=== PATIENT | female | born 1975 | race African-American/Black ===

== ENCOUNTER 2017-08-15 08:00 | Outpatient (CLI) | payer OTHER ==
[2017-08-15 08:25] LABS: ADD MAN DIFF? NO
[2017-08-15 08:27] LABS: BASO # 0.1 x10^3/uL (0.0-0.2); BASO % 1 % (0-3); EOS # 0.2 x10^3/uL (0.0-0.7); EOS % 3 % (0-3); HEMATOCRIT 32.9 % (36.0-47.0); HEMOGLOBIN 10.9 g/dL (12.0-15.5); LYMPH % 31 % (24-48); MEAN CORPUSCULAR HEMOGLOBIN 31 pg (25-35); MEAN CORPUSCULAR HGB CONC 33 g/dL (31-37); MEAN CORPUSCULAR VOLUME 94 fL (79-100); MONO # 0.7 x10^3/uL (0.0-1.1); MONO % 10 % (0-9); NEUT # 3.6 x10^3uL (1.8-7.7); NEUT % 55 % (31-73); PLATELET COUNT 338 x10^3/uL (140-400); WHITE BLOOD COUNT 6.5 x10^3/uL (4.0-11.0)
[2017-08-15 08:43] LABS: INR 0.9 (0.8-1.1); PROTHROMBIN TIME PATIENT 12.1 SEC (11.7-14.0)
[2017-08-15] MEDS ORDERED: GELATIN SPONGE SIZE 12-7MM SPONGE. (09:24)
[2017-08-15] MEDS ORDERED: LIDOCAINE WITH 8.4% SOD BICARB 3 ML DISP.SYRIN. (09:44)
[2017-08-15] MEDS ORDERED: fentaNYL PF VIAL 100 MCG/2 ML VIAL (09:45)
[2017-08-15] MEDS: LIDOCAINE WITH 8.4% SOD BICARB 3 ML DISP.SYRIN. IJ (09:51)
[2017-08-15] MEDS: fentaNYL PF VIAL 100 MCG/2 ML VIAL IV (09:52)
[2017-08-15] MEDS: MIDAZOLAM HCL/PF 2 MG/2 ML VIAL. IV (09:53)
[2017-08-15] MEDS: traMADol 50 MG TABLET PO (10:00)
[2017-08-15] MEDS: oxyCODONE IR 5 MG TABLET PO (10:00)
[2017-08-15] MEDS ORDERED: MORPHINE SULFATE 4 MG/ML DISP.SYRIN. (11:49)
[2017-08-15] MEDS: MORPHINE SULFATE 2 MG/ML DISP.SYRIN. IV (11:56)
[2017-08-15 12:41] LABS: HEMOGLOBIN 10.8 g/dL (12.0-15.5)
[2017-08-16] MEDS ORDERED: MIDAZOLAM HCL/PF 2 MG/2 ML VIAL. (11:33)
[2017-08-16] MEDS ORDERED: fentaNYL PF VIAL 100 MCG/2 ML VIAL (11:34)
== END 2017-08-15 12:55 | disposition home or self-care (01) ==
LOC: INTRAD 08:00
DX: K74.3 Primary biliary cirrhosis (principal); Z87.01 Personal history of pneumonia (recurrent); Z90.79 Acquired absence of other genital organ(s); Z90.721 Acquired absence of ovaries, unilateral; F41.9 Anxiety disorder, unspecified; F32.9 Major depressive disorder, single episode, unspecified; D64.9 Anemia, unspecified; Z98.890 Other specified postprocedural states
CPT/HCPCS: 36415; 47000; 76942; 85018; 85025; 85610; J2250; J2270; J3010

== ENCOUNTER → 2019-09-10 | Outpatient (CLI) | payer OTHER ==
[~2019-09-10] MED LIST: AMLO10TA8 PO; AZAT50TA PO; BENZ-8 PO; COLE1TAB2 PO; CYCL10TA2 PO; DICL100G54 TP; DIPH50CA PO; ESCITALOPRAM OX10 MG PO; FURO20TA3 PO; HYDR12.58 PO; HYDR25TA PO; LACT10PA3 PO; LEVO50TA5 PO; MYCO250C PO; OLAN15TA9 PO; OMEP20CA16 PO; OXYC10TA PO; PRED5TAB PO; PROM25TA10 PO; SERT100T PO; SUCR1TAB PO; TRAM50TA PO; URSO300C13 PO; URSO300C26 PO; ZOLP10TA4 PO; ZOLP5TAB5 PO
== END | disposition home or self-care (01) ==
LOC: LAB 11:49
PROVIDERS: ATTEND Internal Medicine Gastroenterology
DX: Z01.818 Encounter for other preprocedural examination (principal); Z11.59 Encounter for screening for other viral diseases; R13.10 Dysphagia, unspecified
CPT/HCPCS: U0003-CS

== ENCOUNTER → 2019-09-13 | Day surgery (SDC) | payer OTHER ==
[~2019-09-13] MED LIST changes: +IV RINGERS,LACTATED 1000ML 1,000 ML IV ONE; +LIDOCAINE 2% PF 5 ML VIAL. ONE; +PROPOFOL 10 MG/ML (20ML) VIAL. IV ONE
[2019-09-13 13:18] VITALS: BP 125/79
--- NOTE | 2019-09-14 15:08 | PATHOLOGY ---
[facility] Accession Number: [id number] . 01 Material submitted: . duodenum - ANASTOMOTIC ULCER BX DUODENUM . 01 Clinical history: . Post Momo fundoplication dysphagia; odynophagia . 02 Diagnosis: Duodenal biopsies, anastomotic ulcer: - Chronic duodenitis with focal erosion and acute inflammation. ([facility] 09/14/2019) [facility] 09/14/2019 1014 Local . 02 Comment: There is no evidence of malignancy. ([facility] 09/14/2019) . 02 Electronically signed: . Pranay Lorenzo MD, Pathologist NPI- [id number] . 01 Gross description: . The specimen is received in formalin, labeled "Dione Nevils, anastomotic ulcer biopsy". Received are two segments of pale fairbanks soft tissue ranging in size from 0.4 to 0.7 cm in maximum dimensions. The specimen is submitted entirely in cassette A1. ([facility]; 09/13/2019) QA/QA 09/13/2019 1705 Local . 02 Pathologist provided ICD-10: K29.80, K26.9 . 02 CPT . 092126 Specimen Comment: A courtesy copy of this report has been sent to [phone] Specimen Comment: Report sent to Performed at: 01 [facility] [address], [place] [id number] MD Redd Squires MD Phone: [phone] Performed at: 02 [facility] [address] [place], [place] [id number] MD Pranay Lorenzo MD Phone: [phone]
== END | disposition home or self-care (01) ==
LOC: ENDOS 10:44
PROVIDERS: ATTEND Internal Medicine Gastroenterology
DX: R13.10 Dysphagia, unspecified (principal); K29.80 Duodenitis without bleeding; K29.50 Unspecified chronic gastritis without bleeding; Z79.899 Other long term (current) drug therapy
CPT/HCPCS: 43239; 43450; J2704; 88305

== ENCOUNTER 2020-09-29 23:45 | Inpatient (IN) | payer OTHER ==
[~2020-09-29] VITALS: Ht 152.4 cm; Wt 79.1 kg
[2020-09-29 23:20] VITALS: BP 143/97
[~2020-09-29 23:45] MED LIST changes: +AMLO-187 PO; -AMLO10TA8 PO; -IV RINGERS,LACTATED 1000ML 1,000 ML IV ONE; -LIDOCAINE 2% PF 5 ML VIAL. ONE; +OLAN15TA15 PO; -OLAN15TA9 PO; -PROPOFOL 10 MG/ML (20ML) VIAL. IV ONE
[2020-09-30] MEDS ORDERED: CIME200T6 PO (00:32)
[2020-09-30] MEDS ORDERED: PROG200C10 PO (00:32)
[2020-09-30] MEDS ORDERED: ONDA8TAB15 PO (00:32)
[2020-09-30] MEDS ORDERED: NAPR-514 PO (00:32)
[2020-09-30] MEDS ORDERED: SUCR1TAB PO (00:32)
[2020-09-30] MEDS ORDERED: ERGO500089 PO (00:32)
[2020-09-30] MEDS ORDERED: ESTR1VAG7 VAG (00:32)
[2020-09-30] MEDS ORDERED: MYCO500T3 PO (00:32)
[2020-09-30] MEDS ORDERED: FAMO40TA4 PO (00:32)
[2020-09-30] MEDS ORDERED: PROC10TA2 PO (00:32)
[2020-09-30] MEDS ORDERED: PIP/TAZO PER PHARMACY MC PRN (01:00)
[2020-09-30 02:47] VITALS: BP 147/103
[2020-09-30] MEDS: ONDANSETRON PF 4 MG/2 ML VIAL. IVP PRN (03:10)
[2020-09-30] MEDS: MORPHINE SULFATE 4 MG/ML INJ. IV PRN (03:11)
[2020-09-30] MEDS: PIPERACILLIN/TAZOBACTAM 3.375 GM in IV NORMAL SALINE 50ML 50 ML IV SCH ×4 (05:18→23:56)
[2020-09-30 07:00] VITALS: BP 133/104
[2020-09-30 08:08] LABS: BASO # 0.1 x10^3/uL (0.0-0.2); BASO % 1 % (0-3); EOS % 0 % (0-3); HEMATOCRIT 38.6 % (36.0-47.0); HEMOGLOBIN 12.5 g/dL (12.0-15.5); LYMPH # 0.9 x10^3/uL (1.0-4.8); LYMPH % 13 % (24-48); MEAN CORPUSCULAR HEMOGLOBIN 30 pg (25-35); MEAN CORPUSCULAR HGB CONC 32 g/dL (31-37); MEAN CORPUSCULAR VOLUME 93 fL (79-100); MONO # 0.5 x10^3/uL (0.0-1.1); MONO % 8 % (0-9); NEUT # 5.2 x10^3/uL (1.8-7.7); NEUT % 79 % (31-73); PLATELET COUNT 230 x10^3/uL (140-400); RED BLOOD COUNT 4.16 x10^6/uL (3.50-5.40); WHITE BLOOD COUNT 6.6 x10^3/uL (4.0-11.0)
[2020-09-30 08:40] LABS: ALBUMIN 2.6 g/dL (3.4-5.0); ALBUMIN/GLOBULIN RATIO 0.4 (1.0-1.7); CALCIUM 9.2 mg/dL (8.5-10.1); GFR 72.9; POTASSIUM 4.7 mmol/L (3.5-5.1); TOTAL BILIRUBIN 0.3 mg/dL (0.2-1.0); TOTAL PROTEIN 8.7 g/dL (6.4-8.2)
[2020-09-30] MEDS: MULTIVITAMIN with MINERAL TABLET. PO SCH (09:19)
[2020-09-30] MEDS: DEXAMETHASONE 4 MG TABLET PO SCH ×2 (09:19→20:17)
[2020-09-30] MEDS: DOXYCYCLINE HYCLATE 100 MG in IV DEXTROSE 5% 100ML 100 ML IV SCH ×2 (09:20→21:52)
[2020-09-30] MEDS: ASPIRIN ENTERIC COATED 81 MG TABLET.DR. PO SCH (09:20)
[2020-09-30 09:28] LABS: % BANDS 8 % (0-9); % LYMPHS 13 % (24-48); % MONOS 6 % (0-10); % SEGS 73 % (35-66)
[2020-09-30 09:29] LABS: PLT ESTIMATE ADEQUATE (ADEQUATE)
--- NOTE | 2020-09-30 09:45 | CONS ---
DATE OF CONSULTATION: 09/30/2020 PULMONARY CONSULTATION ATTENDING PHYSICIAN: Dedrick Marquez MD REASON FOR CONSULTATION: COVID-19 pneumonia, hypoxia, respiratory failure. HISTORY OF PRESENT ILLNESS: The patient is a 45-year-old female who has no significant tobacco use. She is hospitalized due to dyspnea, cough and hypoxia. The patient is COVID positive. She is currently on 10 liters oxygen. She is not vaccinated for COVID. The patient has a history of autoimmune hepatitis. She has been on CellCept. She is also on prednisone at home. I have been asked to see him for further evaluation. PAST MEDICAL HISTORY: Autoimmune hepatitis. PAST SURGICAL HISTORY: No recent surgeries. ALLERGIES: None. SOCIAL HISTORY: Nonsmoker. MEDICATIONS: All reviewed as listed in the MRAD including remdesivir, doxycycline and Zosyn. REVIEW OF SYSTEMS: A 12-point system obtained. Pertinent positives and negatives discussed in my present illness, otherwise noncontributory. All systems that were negative were reviewed as well. PHYSICAL EXAMINATION: VITAL SIGNS: Reviewed. Afebrile, pulse ox 98% on 10 liters. Visual exam done due to COVID-19. RESPIRATORY: No paradoxical breathing. SKIN: No skin rash. EXTREMITIES: No leg edema. LABORATORY DATA: Reviewed. White cell count 6.6, hemoglobin 12.5 and platelets are 230. BUN 16, creatinine 1.0. ALT, AST elevated. IMPRESSION: 1. Acute hypoxic respiratory failure secondary to COVID-19 viral pneumonia, acute lung injury and early acute respiratory distress syndrome. 2. COVID-19 viral pneumonia in the patient who is not vaccinated and immunosuppressed. She is on CellCept and prednisone at home. 3. Abnormal liver function test, could be related to COVID. Not a candidate for tocilizumab. 4. Moderate protein-calorie malnutrition. 5. Nonsmoker. RECOMMENDATIONS: 1. Continue present oxygen to keep saturations 92% and above. 2. Continue remdesivir. 3. steroid with dexa for 10 days ,wean to baseline home prednisone dose. 4. Empiric Zosyn and doxycycline was initiated to cover for any superimposed bacterial infection. 5. Continue current aggressive care and follow her respiratory status closely. We will discuss with the patient's hospitalist. [facility] [facility]: Melissa TID: [id number] [facility]
[2020-09-30] MEDS: COLESTIPOL HCL 1 GM TABLET PO SCH ×3 (10:00→22:00)
--- NOTE | 2020-09-30 10:15 | PDOC1 ---
History and Physical Date of Service: DOS: DATE: 09/30/20 TIME: 10:15 Chief Complaint: Problems: (1) Pneumonia due to COVID-19 virus History of Present Illness: HPI: Patient is a 45-year-old female transferred from [facility] overnight due to COVID-19 pneumonia. She presented to the outside hospital September 27 complaining of 2-day history of shortness of breath that was worsening. Per report from them she was diagnosed with Covid on September 24. Patient reported she was also having some nausea and decreased p.o. tolerance. On arrival to [facility] she was noted to have sinus tach and hypoxia requiring 6 L nasal cannula to bring her saturations into the 90s. She was started on steroids and Levaquin. At that point due to failure increasing respiratory status [facility] contacted for transfer to the ICU here. This was delayed due to bed availability but patient eventually arrived here September 29. When seen at this morning she was on 10 L nonrebreather. She does have a history of autoimmune hepatitis on home CellCept. We will hold this medication given positive Covid. Patient reported she has had to hold it in the past before without major issue. Past Medical/Surgical History: PMH/PSH: Autoimmune hepatitis, migraines Allergies: Allergies: Coded Allergies: No Known Drug Allergies (Unverified , 09/13/19) Family History: Family History: Noncontributory Social History: Social History: Denies alcohol tobacco or drug use Current Medications: Current Medications Current Medications Ondansetron HCl (Zofran) 4 mg PRN Q4HRS PRN IVP NAUSEA/VOMITING Last administered on 09/30/20at 03:10; Start 09/30/20 at 01:00 Morphine Sulfate (Morphine Sulfate) 4 mg PRN Q4HRS PRN IV PAIN Last administered on 09/30/20at 03:11; Start 09/30/20 at 01:00 Aspirin (Ecotrin) 81 mg [id number] PO Last administered on 09/30/20at 09:20; Start 09/30/20 at 08:00 Dexamethasone (Decadron) 10 mg BID PO Last administered on 09/30/20at 09:19; Start 09/30/20 at 09:00 Piperacillin Sod/ Tazobactam Sod (Zosyn Per Pharmacy) 1 each PRN DAILY PRN MC SEE COMMENTS; Start 09/30/20 at 01:00 Multivitamins (Thera M Plus) 1 tab DAILY PO Last administered on 09/30/20at 09:19; Start 09/30/20 at 09:00 Doxycycline Hyclate 100 mg/ Dextrose 100 ml @ 50 mls/hr Q12HR IV Last administered on 09/30/20at 09:20; Start 09/30/20 at 09:00 Piperacillin Sod/ Tazobactam Sod 3.375 gm/Sodium Chloride 50 ml @ 100 mls/hr Q6HRS IV Last administered on 09/30/20at 05:18; Start 09/30/20 at 06:00 Remdesivir 100 mg/ Sodium Chloride 230 ml @ 460 mls/hr Q24H IV ; Start 10/01/20 at 17:30; Stop 10/04/20 at 17:59 Benzonatate (Tessalon Perle) 100 mg PRN TID PRN PO COUGH; Start 09/30/20 at 09:30 Colestipol HCl (Colestid) 1 gm BID@1000,2200 PO ; Start 09/30/20 at 10:00 Cyclobenzaprine HCl (Flexeril) 10 mg TID PO ; Start 09/30/20 at 14:00 Furosemide (Lasix) 20 mg DAILY PO ; Start 09/30/20 at 10:00 Levothyroxine Sodium (Synthroid) 50 mcg DAILY06 PO ; Start 10/01/20 at 09:00 Ursodiol (Actigall) 300 mg QID PO ; Start 09/30/20 at 13:00 Non-Formulary Medication (Cimetidine ) 1 tab BID PO ; Start 09/30/20 at 21:00; Status UNV Citalopram Hydrobromide (CeleXA) 20 mg DAILY PO ; Start 09/30/20 at 10:00 Famotidine (Pepcid) 40 mg DAILY PO ; Start 09/30/20 at 10:00 Olanzapine (ZyPREXA) 15 mg QHS PO ; Start 09/30/20 at 21:00 Progesterone (Prometrium) 200 mg QHS PO ; Start 09/30/20 at 21:00 Active Scripts Active Reported Cimetidine 200 Mg Tablet 1 Tab PO BID Femring (Estradiol Acetate) 1 Each Vag.ring 1 Ring VAG [id number] Naproxen 500 Mg Tablet 1 Tab PO BID Famotidine 40 Mg Tablet 1 Tab PO DAILY Sucralfate 1 Gm Tablet 1 Tab PO QID Progesterone (Progesterone,Micronized) 200 Mg Capsule 1 Cap PO QHS Ondansetron Odt (Ondansetron) 8 Mg Tab.rapdis 1 Tab PO PRN TID PRN Prochlorperazine Maleate 10 Mg Tablet 10 Mg PO PRN Q8HRS PRN Vitamin D2 (Ergocalciferol (Vitamin D2)) 1,250 Mcg Capsule 1 Cap PO TWICE WEEKLY Mycophenolate Mofetil 500 Mg Tablet 500 Mg PO BID Colestipol Hcl 1 Gm Tablet 1 Gm PO BID Escitalopram Oxalate 10 Mg Tablet 10 Mg PO DAILY Olanzapine 15 Mg Tablet 15 Mg PO QHS Promethazine Hcl 25 Mg Tablet 25 Mg PO PRN Q8HRS PRN Voltaren (Diclofenac Sodium) 100 Gm Gel..gram. 100 Gm TP DAILY Cyclobenzaprine Hcl 10 Mg Tablet 10 Mg PO TID Furosemide 20 Mg Tablet 20 Mg PO DAILY Prednisone 5 Mg Tablet 5 Mg PO DAILY Diphenhydramine Hcl 50 Mg Capsule 50 Mg PO PRN Q6HRS PRN Benzonatate 100 Mg Capsule 1 Cap PO PRN TID PRN Ursodiol 300 Mg Capsule 300 Mg PO QID Levothyroxine Sodium 50 Mcg Tablet 1 Tab PO DAILY ROS: Review of Systems Review of System Negative unless noted in HPI Physical Exam: Vital Signs: Vital Signs Date Time Temp Pulse Resp B/P (MAP) Pulse Ox O2 Delivery O2 Flow Rate FiO2 09/30/20 07:00 97.2 90 18 133/104 (114) 98 NonRebreather Mask 10.0 97.2 Physcial Exam: GEN: Lethargic HEENT: Normal cephalic, atraumatic, external auditory canals are patent EYES: Extraocular muscles are intact, pupil are equally round and reactive to light and accommodation MUSCULOSKELETAL: Well developed , well nourished, good range of motion ENDOCRINE: No thyromegaly was palpated LYMPHATICS: No cervical chain or axillary nodes were noted HEMATOPOIETIC: No bruising NECK: Supple, no JVD, no thyromegaly was noted LUNGS: Clear to auscultation in all lung forman without rhonchi or wheezing HEART: RRR, S1, S2 present. Peripheral pulses intact, no obvious murmurs noted ABDOMEN: Soft nontender, no hepatomegaly apparent. No notable point tenderness EXTREMITIES: Without clubbing, cyanosis, or edema. Pedal pulses intact. NEUROLOGIC: Normal speech and tone. A&O x 3, moves all extremities, no obvious focal deficits PSYCHIATRIC: Normal affect, normal mood. Stable SKIN: No ulcerations or rashes, good skin turgor, no jaundice VASCULAR: Good capillary refill, neurovascular bundle appears to be intact Labs: Labs: Laboratory Tests Test 09/30/20 07:30 White Blood Count 6.6 x10^3/uL (4.0-11.0) Red Blood Count 4.16 x10^6/uL (3.50-5.40) Hemoglobin 12.5 g/dL (12.0-15.5) Hematocrit 38.6 % (36.0-47.0) Mean Corpuscular Volume 93 fL (79-100) Mean Corpuscular Hemoglobin 30 pg (25-35) Mean Corpuscular Hemoglobin Concent 32 g/dL (31-37) Red Cell Distribution Width 14.0 % (11.5-14.5) Platelet Count 230 x10^3/uL (140-400) Neutrophils (%) (Auto) 79 % (31-73) Lymphocytes (%) (Auto) 13 % (24-48) Monocytes (%) (Auto) 8 % (0-9) Eosinophils (%) (Auto) 0 % (0-3) Basophils (%) (Auto) 1 % (0-3) Neutrophils # (Auto) 5.2 x10^3/uL (1.8-7.7) Lymphocytes # (Auto) 0.9 x10^3/uL (1.0-4.8) Monocytes # (Auto) 0.5 x10^3/uL (0.0-1.1) Eosinophils # (Auto) 0.0 x10^3/uL (0.0-0.7) Basophils # (Auto) 0.1 x10^3/uL (0.0-0.2) Segmented Neutrophils % 73 % (35-66) Band Neutrophils % 8 % (0-9) Lymphocytes % 13 % (24-48) Monocytes % 6 % (0-10) Platelet Estimate Adequate (ADEQUATE) Large Platelets Present Giant Platelets Occ Sodium Level 139 mmol/L (136-145) Potassium Level 4.7 mmol/L (3.5-5.1) Chloride Level 104 mmol/L (98-107) Carbon Dioxide Level 22 mmol/L (21-32) Anion Gap 13 (6-14) Blood Urea Nitrogen 16 mg/dL (7-20) Creatinine 1.0 mg/dL (0.6-1.0) Estimated GFR (Cockcroft-Gault) 72.9 BUN/Creatinine Ratio 16 (6-20) Glucose Level 116 mg/dL (70-99) Calcium Level 9.2 mg/dL (8.5-10.1) Total Bilirubin 0.3 mg/dL (0.2-1.0) Aspartate Amino Transf (AST/SGOT) 73 U/L (15-37) Alanine Aminotransferase (ALT/SGPT) 76 U/L (14-59) Alkaline Phosphatase 989 U/L (46-116) Total Protein 8.7 g/dL (6.4-8.2) Albumin 2.6 g/dL (3.4-5.0) Albumin/Globulin Ratio 0.4 (1.0-1.7) Laboratory Tests Test 09/30/20 07:30 White Blood Count 6.6 x10^3/uL (4.0-11.0) Red Blood Count 4.16 x10^6/uL (3.50-5.40) Hemoglobin 12.5 g/dL (12.0-15.5) Hematocrit 38.6 % (36.0-47.0) Mean Corpuscular Volume 93 fL (79-100) Mean Corpuscular Hemoglobin 30 pg (25-35) Mean Corpuscular Hemoglobin Concent 32 g/dL (31-37) Red Cell Distribution Width 14.0 % (11.5-14.5) Platelet Count 230 x10^3/uL (140-400) Neutrophils (%) (Auto) 79 % (31-73) Lymphocytes (%) (Auto) 13 % (24-48) Monocytes (%) (Auto) 8 % (0-9) Eosinophils (%) (Auto) 0 % (0-3) Basophils (%) (Auto) 1 % (0-3) Neutrophils # (Auto) 5.2 x10^3/uL (1.8-7.7) Lymphocytes # (Auto) 0.9 x10^3/uL (1.0-4.8) Monocytes # (Auto) 0.5 x10^3/uL (0.0-1.1) Eosinophils # (Auto) 0.0 x10^3/uL (0.0-0.7) Basophils # (Auto) 0.1 x10^3/uL (0.0-0.2) Segmented Neutrophils % 73 % (35-66) Band Neutrophils % 8 % (0-9) Lymphocytes % 13 % (24-48) Monocytes % 6 % (0-10) Platelet Estimate Adequate (ADEQUATE) Large Platelets Present Giant Platelets Occ Sodium Level 139 mmol/L (136-145) Potassium Level 4.7 mmol/L (3.5-5.1) Chloride Level 104 mmol/L (98-107) Carbon Dioxide Level 22 mmol/L (21-32) Anion Gap 13 (6-14) Blood Urea Nitrogen 16 mg/dL (7-20) Creatinine 1.0 mg/dL (0.6-1.0) Estimated GFR (Cockcroft-Gault) 72.9 BUN/Creatinine Ratio 16 (6-20) Glucose Level 116 mg/dL (70-99) Calcium Level 9.2 mg/dL (8.5-10.1) Total Bilirubin 0.3 mg/dL (0.2-1.0) Aspartate Amino Transf (AST/SGOT) 73 U/L (15-37) Alanine Aminotransferase (ALT/SGPT) 76 U/L (14-59) Alkaline Phosphatase 989 U/L (46-116) Total Protein 8.7 g/dL (6.4-8.2) Albumin 2.6 g/dL (3.4-5.0) Albumin/Globulin Ratio 0.4 (1.0-1.7) Assessment/Plan Assessment/Plan Patient is a 45-year-old -[place] female sent here from [facility] due to COVID-19 positive test (U07.1, COVID-19) with Acute Pneumonia (J12.89, Other viral pneumonia) COVID-19 positive, pneumonia secondary to COVID-19, autoimmune hepatitis, -Presented to outside hospital with worsening shortness of breath had been Covid +3 days prior -Sent here due to concern for deteriorating respiratory status -Currently requiring 10 L nonrebreather -Covid protocol ordered -Holding home mycophenolate due to acute infection. We will continue dexamethasone -Home medications resumed as indicated -DVT prophylaxis Justifications for Admission Other Justification MILLIE TELLO MD Sep 30, 2020 10:15
[2020-09-30 11:00] VITALS: BP 151/106
[2020-09-30] MEDS: FUROSEMIDE 20 MG TABLET PO SCH (11:03)
[2020-09-30] MEDS: URSODIOL 300 MG CAPSULE. PO SCH ×3 (11:03→20:17)
[2020-09-30] MEDS: CITALOPRAM 20 MG TABLET. PO SCH (11:04)
[2020-09-30] MEDS: FAMOTIDINE 20 MG TABLET. PO SCH (11:04)
--- NOTE | 2020-09-30 12:01 | NUR ---
SS following for discharge planning. SS reviewed pt chart and discussed with pt RN. Pt is currently on ten liters non-rebreather. COVID19 positive. Pt on IV Remdesivir, IV Doxycycline, IV Zosyn, and PO Decadron. SS will continue to follow for discharge planning.
[2020-09-30] MEDS: CYCLOBENZAPRINE 10 MG TABLET. PO SCH ×2 (13:14→20:17)
[2020-09-30 15:00] VITALS: BP 157/106
[2020-09-30] MEDS: ENOXAPARIN 40 MG/0.4 ML SYRINGE. SQ SCH ×2 (15:00→16:48)
[2020-09-30 19:00] VITALS: BP 142/99
[2020-09-30] MEDS: REMDESIVIR 100mg in NORMAL SALINE 250ML X 4 DAYS IV SCH (20:09)
[2020-09-30] MEDS: OLANZapine 5 MG TABLET PO SCH (20:17)
[2020-09-30] MEDS: PROGESTERONE, MICRONIZED 100 MG CAPSULE PO SCH (20:17)
[2020-09-30] MEDS ORDERED: LACTOBACILLUS RHAMNOSUS GG 1 CAPSULE. PO SCH (21:00)
[2020-09-30] MEDS ORDERED: CIMETIDINE PO SCH (21:00)
[2020-09-30 22:57] VITALS: BP 152/98
[2020-10-01 02:39] VITALS: BP 148/99
[2020-10-01] MEDS: PIPERACILLIN/TAZOBACTAM 3.375 GM in IV NORMAL SALINE 50ML 50 ML IV SCH ×4 (05:23→23:59)
[2020-10-01 07:00] VITALS: BP 132/94
[2020-10-01] MEDS: DEXAMETHASONE 4 MG TABLET PO SCH ×2 (08:53→21:00)
[2020-10-01] MEDS: FUROSEMIDE 20 MG TABLET PO SCH (08:54)
[2020-10-01] MEDS: ASPIRIN ENTERIC COATED 81 MG TABLET.DR. PO SCH (08:54)
[2020-10-01] MEDS: FAMOTIDINE 20 MG TABLET. PO SCH (08:54)
[2020-10-01] MEDS: URSODIOL 300 MG CAPSULE. PO SCH ×4 (08:54→21:00)
[2020-10-01] MEDS: CYCLOBENZAPRINE 10 MG TABLET. PO SCH ×3 (08:54→21:00)
[2020-10-01] MEDS: LEVOTHYROXINE 50 MCG TABLET PO SCH (08:54)
[2020-10-01] MEDS: CITALOPRAM 20 MG TABLET. PO SCH (08:54)
[2020-10-01] MEDS: MORPHINE SULFATE 4 MG/ML INJ. IV PRN (08:55)
[2020-10-01] MEDS: DOXYCYCLINE HYCLATE 100 MG in IV DEXTROSE 5% 100ML 100 ML IV SCH ×2 (08:55→21:00)
[2020-10-01] MEDS: COLESTIPOL HCL 1 GM TABLET PO SCH ×2 (08:59→21:55)
[2020-10-01] MEDS: MULTIVITAMIN with MINERAL TABLET. PO SCH (08:59)
[2020-10-01] MEDS ORDERED: oxyCODONE/APAP 7.5/325 1 TAB TABLET PO ONE (09:00)
--- NOTE | 2020-10-01 10:55 | PDOC ---
PULMONARY PROGRESS NOTES DATE: 10/01/20 TIME: 10:53 Subjective Remains on nonrebreather mask. No respiratory distress Vitals Vital Signs Date Time Temp Pulse Resp B/P (MAP) Pulse Ox O2 Delivery O2 Flow Rate FiO2 10/01/20 10:21 98 10.0 10/01/20 08:55 17 10/01/20 08:00 Non-Rebreather 10/01/20 07:00 96.8 99 132/94 (107) 96.8 Comments Visual exam done due to COVID-19 pneumonia. No paradoxical breathing no respiratory distress no skin rash no leg edema Labs Laboratory Tests Test 09/30/20 07:30 White Blood Count 6.6 x10^3/uL (4.0-11.0) Red Blood Count 4.16 x10^6/uL (3.50-5.40) Hemoglobin 12.5 g/dL (12.0-15.5) Hematocrit 38.6 % (36.0-47.0) Mean Corpuscular Volume 93 fL (79-100) Mean Corpuscular Hemoglobin 30 pg (25-35) Mean Corpuscular Hemoglobin Concent 32 g/dL (31-37) Red Cell Distribution Width 14.0 % (11.5-14.5) Platelet Count 230 x10^3/uL (140-400) Neutrophils (%) (Auto) 79 % (31-73) Lymphocytes (%) (Auto) 13 % (24-48) Monocytes (%) (Auto) 8 % (0-9) Eosinophils (%) (Auto) 0 % (0-3) Basophils (%) (Auto) 1 % (0-3) Neutrophils # (Auto) 5.2 x10^3/uL (1.8-7.7) Lymphocytes # (Auto) 0.9 x10^3/uL (1.0-4.8) Monocytes # (Auto) 0.5 x10^3/uL (0.0-1.1) Eosinophils # (Auto) 0.0 x10^3/uL (0.0-0.7) Basophils # (Auto) 0.1 x10^3/uL (0.0-0.2) Segmented Neutrophils % 73 % (35-66) Band Neutrophils % 8 % (0-9) Lymphocytes % 13 % (24-48) Monocytes % 6 % (0-10) Platelet Estimate Adequate (ADEQUATE) Large Platelets Present Giant Platelets Occ Sodium Level 139 mmol/L (136-145) Potassium Level 4.7 mmol/L (3.5-5.1) Chloride Level 104 mmol/L (98-107) Carbon Dioxide Level 22 mmol/L (21-32) Anion Gap 13 (6-14) Blood Urea Nitrogen 16 mg/dL (7-20) Creatinine 1.0 mg/dL (0.6-1.0) Estimated GFR (Cockcroft-Gault) 72.9 BUN/Creatinine Ratio 16 (6-20) Glucose Level 116 mg/dL (70-99) Calcium Level 9.2 mg/dL (8.5-10.1) Total Bilirubin 0.3 mg/dL (0.2-1.0) Aspartate Amino Transf (AST/SGOT) 73 U/L (15-37) Alanine Aminotransferase (ALT/SGPT) 76 U/L (14-59) Alkaline Phosphatase 989 U/L (46-116) Total Protein 8.7 g/dL (6.4-8.2) Albumin 2.6 g/dL (3.4-5.0) Albumin/Globulin Ratio 0.4 (1.0-1.7) Medications Active Scripts Medications Dose Route/Sig Max Daily Dose Days Date Category Cimetidine 200 Mg Tablet 1 Tab PO BID 09/30/20 Reported Femring (Estradiol Acetate) 1 Each Vag.ring 1 Ring VAG [id number] 09/30/20 Reported Naproxen 500 Mg Tablet 1 Tab PO BID 09/30/20 Reported Famotidine 40 Mg Tablet 1 Tab PO DAILY 09/30/20 Reported Sucralfate 1 Gm Tablet 1 Tab PO QID 09/30/20 Reported Progesterone (Progesterone,Micronized) 200 Mg Capsule 1 Cap PO QHS 09/30/20 Reported Ondansetron Odt (Ondansetron) 8 Mg Tab.rapdis 1 Tab PO PRN TID PRN 09/30/20 Reported Prochlorperazine Maleate 10 Mg Tablet 10 Mg PO PRN Q8HRS PRN 09/30/20 Reported Vitamin D2 (Ergocalciferol (Vitamin D2)) 1,250 Mcg Capsule 1 Cap PO TWICE WEEKLY 09/30/20 Reported Mycophenolate Mofetil 500 Mg Tablet 500 Mg PO BID 09/30/20 Reported Colestipol Hcl 1 Gm Tablet 1 Gm PO BID 09/13/19 Reported Escitalopram Oxalate 10 Mg Tablet 10 Mg PO DAILY 09/13/19 Reported Olanzapine 15 Mg Tablet 15 Mg PO QHS 09/13/19 Reported Promethazine Hcl 25 Mg Tablet 25 Mg PO PRN Q8HRS PRN 09/13/19 Reported Voltaren (Diclofenac Sodium) 100 Gm Gel..gram. 100 Gm TP DAILY 09/13/19 Reported Cyclobenzaprine Hcl 10 Mg Tablet 10 Mg PO TID 09/13/19 Reported Furosemide 20 Mg Tablet 20 Mg PO DAILY 09/13/19 Reported Prednisone 5 Mg Tablet 5 Mg PO DAILY 09/13/19 Reported Diphenhydramine Hcl 50 Mg Capsule 50 Mg PO PRN Q6HRS PRN 08/15/17 Reported Benzonatate 100 Mg Capsule 1 Cap PO PRN TID PRN 08/15/17 Reported Ursodiol 300 Mg Capsule 300 Mg PO QID 07/18/14 Reported Levothyroxine Sodium 50 Mcg Tablet 1 Tab PO DAILY 07/18/14 Reported Impression . 1. Acute hypoxic respiratory failure secondary to COVID-19 viral pneumonia, acute lung injury and early acute respiratory distress syndrome. 2. COVID-19 viral pneumonia in the patient who is not vaccinated and immunosuppressed. She is on CellCept and prednisone at home. 3. Abnormal liver function test, could be related to COVID. Not a candidate for tocilizumab. 4. Moderate protein-calorie malnutrition. 5. Nonsmoker. Plan . RECOMMENDATIONS: 1. Continue present oxygen to keep saturations 92% and above. 2. Continue remdesivir. 3. steroid with dexa for 10 days ,wean to baseline home prednisone dose. 4. Empiric Zosyn and doxycycline was initiated to cover for any superimposed bacterial infection. 5. Continue current aggressive care and follow her respiratory status closely. Patient is at risk for worsening respiratory failure due to her immune suppression STEFAN STOCK MD Oct 01, 2020 10:55
--- NOTE | 2020-10-01 10:58 | NUR ---
SS following up with discharge planning. SS reviewed pt chart and discussed with pt RN. Pt is from home and is currently on ten liters non-rebreather. COVID19 positive. Pt on IV Remdesivir, IV Doxycycline, IV Zosyn, and PO Decadron. SS will continue to follow for discharge planning.
[2020-10-01 11:00] VITALS: BP 146/85
[2020-10-01] MEDS: ENOXAPARIN 40 MG/0.4 ML SYRINGE. SQ SCH (11:19)
[2020-10-01 15:00] VITALS: BP 143/94
--- NOTE | 2020-10-01 17:02 | PDOC ---
[facility] PROGRESS NOTE Date of Service DOS: DATE: 10/01/20 TIME: 16:59 History of Present Illness History of Present Illness Patient is a 45-year-old female transferred from [facility] overnight due to COVID-19 pneumonia. She presented to the outside hospital September 27 complaining of 2-day history of shortness of breath that was worsening. Per report from them she was diagnosed with Covid on September 24. Patient reported she was also having some nausea and decreased p.o. tolerance. On arrival to [facility] she was noted to have sinus tach and hypoxia requiring 6 L nasal cannula to bring her saturations into the 90s. She was started on steroids and Levaquin. At that point due to failure increasing respiratory status [facility] contacted for transfer to the ICU here. This was delayed due to bed availability but patient eventually arrived here September 29. When seen at this morning she was on 10 L nonrebreather. She does have a history of autoimmune hepatitis on home CellCept. We will hold this medication given positive Covid. Patient reported she has had to hold it in the past before without major issue. 10/01 Patient evaluated at bedside. She was on 10L NRB. Complaining of unilateral headache. Continued covid treatment. Vitals/I&O Vitals/I&O: Vital Signs Date Time Temp Pulse Resp B/P (MAP) Pulse Ox O2 Delivery O2 Flow Rate FiO2 10/01/20 15:00 96.1 85 20 143/94 (110) 95 Nasal Cannula 8.0 96.1 I & O 09/30/20 09/30/20 10/01/20 15:00 23:00 07:00 Intake Total 150 ml 220 ml 100 ml Output Total 300 ml 250 ml Balance 150 ml -80 ml -150 ml Physical Exam General: Alert, Oriented X3, Cooperative, moderate distress Heart: Regular rate, Normal S1, Normal S2 Lungs: Other (decreased air entry throughout) Abdomen: Normal bowel sounds, Soft Extremities: No clubbing, No cyanosis, No edema, Normal pulses Skin: No breakdown, No significant lesion Assessment and Plan Assessmemt and Plan Assessment/Plan Patient is a 45-year-old -[place] female sent here from [facility] due to COVID-19 positive test (U07.1, COVID-19) with Acute Pneumonia (J12.89, Other viral pneumonia) COVID-19 positive, pneumonia secondary to COVID-19, autoimmune hepatitis, -Presented to outside hospital with worsening shortness of breath had been Covid +3 days prior -Sent here due to concern for deteriorating respiratory status -Currently requiring 10 L nonrebreather -Covid protocol ordered -Holding home mycophenolate due to acute infection. We will continue dexamethasone -Home medications resumed as indicated -DVT prophylaxis Comment Review of Relevant I have reviewed the following items poli (where applicable) has been applied. Medications: Current Medications Medications (Trade) Dose Ordered Sig/Olegario Route PRN Reason Start Time Stop Time Status Last Admin Dose Admin Remdesivir 100 mg/ Sodium Chloride 230 ml @ 460 mls/hr Q24H IV 09/30/20 19:30 10/03/20 19:59 09/30/20 20:09 Levothyroxine Sodium (Synthroid) 50 mcg DAILY06 PO 10/01/20 09:00 10/01/20 08:54 Olanzapine (ZyPREXA) 15 mg QHS PO 09/30/20 21:00 09/30/20 20:17 Progesterone (Prometrium) 200 mg QHS PO 09/30/20 21:00 09/30/20 20:17 Oxycodone/ Acetaminophen (Percocet 7.5/ 325) 1 tab 1X ONCE PO 10/01/20 09:00 10/01/20 09:01 DC 10/01/20 09:51 Justifications for Admission Other Justification MILLIE TELLO MD Oct 01, 2020 17:02
[2020-10-01 19:00] VITALS: BP 155/101
[2020-10-01] MEDS: REMDESIVIR 100mg in NORMAL SALINE 250ML X 4 DAYS IV SCH (19:30)
[2020-10-01] MEDS: PROGESTERONE, MICRONIZED 100 MG CAPSULE PO SCH (21:00)
[2020-10-01] MEDS: OLANZapine 5 MG TABLET PO SCH (21:00)
[2020-10-01 23:00] VITALS: BP 152/99
[2020-10-02 02:42] VITALS: BP 144/98
[2020-10-02] MEDS: PIPERACILLIN/TAZOBACTAM 3.375 GM in IV NORMAL SALINE 50ML 50 ML IV SCH ×3 (05:49→18:04)
[2020-10-02] MEDS: LEVOTHYROXINE 50 MCG TABLET PO SCH (05:58)
[2020-10-02 07:00] VITALS: BP 157/97
[2020-10-02] MEDS: MULTIVITAMIN with MINERAL TABLET. PO SCH (09:00)
[2020-10-02] MEDS: DEXAMETHASONE 4 MG TABLET PO SCH ×2 (09:29→22:02)
[2020-10-02] MEDS: CITALOPRAM 20 MG TABLET. PO SCH (09:29)
[2020-10-02] MEDS: CYCLOBENZAPRINE 10 MG TABLET. PO SCH ×3 (09:29→22:02)
[2020-10-02] MEDS: DOXYCYCLINE HYCLATE 100 MG in IV DEXTROSE 5% 100ML 100 ML IV SCH ×2 (09:30→22:06)
[2020-10-02] MEDS: FAMOTIDINE 20 MG TABLET. PO SCH (09:30)
[2020-10-02] MEDS: URSODIOL 300 MG CAPSULE. PO SCH ×4 (09:30→22:03)
[2020-10-02] MEDS: FUROSEMIDE 20 MG TABLET PO SCH (09:31)
[2020-10-02] MEDS: ASPIRIN ENTERIC COATED 81 MG TABLET.DR. PO SCH (09:31)
[2020-10-02] MEDS: COLESTIPOL HCL 1 GM TABLET PO SCH ×2 (09:32→20:25)
[2020-10-02] MEDS: MORPHINE SULFATE 4 MG/ML INJ. IV PRN (10:18)
[2020-10-02 10:28] VITALS: BP 175/111
--- NOTE | 2020-10-02 12:58 | NUR ---
SS following up with discharge planning. SS reviewed pt chart and discussed with pt RN. Pt is currently requiring oxygen at eight liters nasal canula. COVID19 positive. Pt on IV Remdesivir, IV Doxycycline, IV Zosyn, and PO Decadron. SS will continue to follow for discharge planning.
[2020-10-02 14:30] VITALS: BP 151/112
[2020-10-02] MEDS: ENOXAPARIN 40 MG/0.4 ML SYRINGE. SQ SCH (15:00)
--- NOTE | 2020-10-02 15:04 | PDOC ---
[employer] PROGRESS NOTE Date of Service DOS: DATE: 10/02/20 TIME: 15:03 Chief Complaint Chief Complaint Shortness of breath History of Present Illness History of Present Illness Patient is a 45-year-old female transferred from [facility] overnight due to COVID-19 pneumonia. She presented to the outside hospital September 27 complaining of 2-day history of shortness of breath that was worsening. Per report from them she was diagnosed with Covid on September 24. Patient reported she was also having some nausea and decreased p.o. tolerance. On arrival to [facility] she was noted to have sinus tach and hypoxia requiring 6 L nasal cannula to bring her saturations into the 90s. She was started on steroids and Levaquin. At that point due to failure increasing respiratory status [facility] contacted for transfer to the ICU here. This was delayed due to bed availability but patient eventually arrived here September 29. When seen at this morning she was on 10 L nonrebreather. She does have a history of autoimmune hepatitis on home CellCept. We will hold this medication given positive Covid. Patient reported she has had to hold it in the past befo re without major issue. 10/01 Patient evaluated at bedside. She was on 10L NRB. Complaining of unilateral headache. Continued covid treatment. 10/02 Patient seen at bedside she was on 8 L nasal cannula. Does report her breathing feels somewhat better. No further headaches. Continue current Covid treatment. Wean O2 as tolerated. Remains on remdesivir and IV antibiotics. Vitals/I&O Vitals/I&O: Vital Signs Date Time Temp Pulse Resp B/P (MAP) Pulse Ox O2 Delivery O2 Flow Rate FiO2 10/02/20 14:30 97.0 85 20 151/112 (125) 93 Nasal Cannula 8.0 97.0 I & O 0 10/01/20 10/01/20 10/02/20 15:00 23:00 07:00 Intake Total 270 ml 280 ml 50 ml Output Total 300 ml 225 ml Balance 270 ml -20 ml -175 ml Physical Exam General: Alert, Oriented X3, Cooperative, moderate distress Heart: Regular rate, Normal S1, Normal S2 Lungs: Other (decreased air entry throughout) Abdomen: Normal bowel sounds, Soft Extremities: No clubbing, No cyanosis, No edema, Normal pulses Skin: No breakdown, No significant lesion Assessment and Plan Assessmemt and Plan Assessment/Plan Patient is a 45-year-old -[place] female sent here from [facility] due to COVID-19 positive test (U07.1, COVID-19) with Acute Pneumonia (J12.89, Other viral pneumonia) COVID-19 positive, pneumonia secondary to COVID-19, autoimmune hepatitis, -Presented to outside hospital with worsening shortness of breath had been Covid +3 days prior -Sent here due to concern for deteriorating respiratory status -Currently requiring 8 L nasal cannula -Covid protocol ordered -Holding home mycophenolate due to acute infection. We will continue dexamethasone -Home medications resumed as indicated -DVT prophylaxis Comment Review of Relevant I have reviewed the following items poli (where applicable) has been applied. Justifications for Admission Other Justification MILLIE TELLO MD Oct 02, 2020 15:04
[2020-10-02 19:00] VITALS: BP 158/109
[2020-10-02] MEDS: OLANZapine 5 MG TABLET PO SCH (22:03)
[2020-10-02] MEDS: PROGESTERONE, MICRONIZED 100 MG CAPSULE PO SCH (22:03)
[2020-10-02] MEDS: OXYMETAZOLINE 0.05% NASAL SPRAY 30ML BOTTLE. NS SCH (22:04)
[2020-10-02] MEDS: HYDROcodone/APAP 5/325MG 1 TAB TABLET PO PRN (22:04)
[2020-10-02] MEDS: REMDESIVIR 100mg in NORMAL SALINE 250ML X 4 DAYS IV SCH (22:06)
[2020-10-02] MEDS: BENZONATATE 100 MG CAPSULE. PO PRN (22:08)
[2020-10-02 22:58] VITALS: BP 165/106
[2020-10-03] MEDS: PIPERACILLIN/TAZOBACTAM 3.375 GM in IV NORMAL SALINE 50ML 50 ML IV SCH ×4 (02:53→16:33)
[2020-10-03 03:00] VITALS: BP 141/94
[2020-10-03] MEDS: LEVOTHYROXINE 50 MCG TABLET PO SCH (06:18)
[2020-10-03 07:00] VITALS: BP 127/90
[2020-10-03 07:46] LABS: ALBUMIN 2.4 g/dL (3.4-5.0); ALBUMIN/GLOBULIN RATIO 0.5 (1.0-1.7); CALCIUM 8.7 mg/dL (8.5-10.1); CREATININE 1.2 mg/dL (0.6-1.0); GFR 59.1; POTASSIUM 3.8 mmol/L (3.5-5.1); TOTAL BILIRUBIN 0.3 mg/dL (0.2-1.0); TOTAL PROTEIN 6.8 g/dL (6.4-8.2)
[2020-10-03 07:47] LABS: HEMATOCRIT 37.4 % (36.0-47.0); RED BLOOD COUNT 4.1 x10^6/uL (3.50-5.40); RED CELL DISTRIBUTION WIDTH 13.9 % (11.5-14.5); WHITE BLOOD COUNT 14.7 x10^3/uL (4.0-11.0)
[2020-10-03] MEDS: MULTIVITAMIN with MINERAL TABLET. PO SCH (09:00)
[2020-10-03] MEDS: OXYMETAZOLINE 0.05% NASAL SPRAY 30ML BOTTLE. NS SCH ×2 (09:00→19:49)
[2020-10-03] MEDS: ASPIRIN ENTERIC COATED 81 MG TABLET.DR. PO SCH (09:06)
[2020-10-03] MEDS: FUROSEMIDE 20 MG TABLET PO SCH (09:07)
[2020-10-03] MEDS: CITALOPRAM 20 MG TABLET. PO SCH (09:07)
[2020-10-03] MEDS: URSODIOL 300 MG CAPSULE. PO SCH ×4 (09:07→19:47)
[2020-10-03] MEDS: DEXAMETHASONE 4 MG TABLET PO SCH ×2 (09:07→19:47)
[2020-10-03] MEDS: FAMOTIDINE 20 MG TABLET. PO SCH (09:07)
[2020-10-03] MEDS: CYCLOBENZAPRINE 10 MG TABLET. PO SCH ×3 (09:07→19:46)
[2020-10-03] MEDS: DOXYCYCLINE HYCLATE 100 MG in IV DEXTROSE 5% 100ML 100 ML IV SCH ×3 (09:08→21:00)
[2020-10-03] MEDS: COLESTIPOL HCL 1 GM TABLET PO SCH ×2 (09:08→19:47)
[2020-10-03] MEDS: MORPHINE SULFATE 4 MG/ML INJ. IV PRN ×3 (09:08→22:41)
--- NOTE | 2020-10-03 10:54 | PDOC ---
PULMONARY PROGRESS NOTES DATE: 10/03/20 TIME: 10:53 Subjective Patient now on 8 L nasal cannula. Denies any shortness of breath. Vitals Vital Signs Date Time Temp Pulse Resp B/P (MAP) Pulse Ox O2 Delivery O2 Flow Rate FiO2 10/03/20 09:38 96 8.0 10/03/20 08:00 Nasal Cannula 10/03/20 07:00 96.3 92 16 127/90 (102) 96.3 Comments Visual exam done due to COVID-19 pneumonia. No paradoxical breathing no respiratory distress no skin rash no leg edema Labs Laboratory Tests Test 10/03/20 05:40 White Blood Count 14.7 x10^3/uL (4.0-11.0) Red Blood Count 4.10 x10^6/uL (3.50-5.40) Hemoglobin 12.0 g/dL (12.0-15.5) Hematocrit 37.4 % (36.0-47.0) Mean Corpuscular Volume 91 fL (79-100) Mean Corpuscular Hemoglobin 29 pg (25-35) Mean Corpuscular Hemoglobin Concent 32 g/dL (31-37) Red Cell Distribution Width 13.9 % (11.5-14.5) Platelet Count 360 x10^3/uL (140-400) Sodium Level 141 mmol/L (136-145) Potassium Level 3.8 mmol/L (3.5-5.1) Chloride Level 107 mmol/L (98-107) Carbon Dioxide Level 21 mmol/L (21-32) Anion Gap 13 (6-14) Blood Urea Nitrogen 37 mg/dL (7-20) Creatinine 1.2 mg/dL (0.6-1.0) Estimated GFR (Cockcroft-Gault) 59.1 BUN/Creatinine Ratio 31 (6-20) Glucose Level 121 mg/dL (70-99) Calcium Level 8.7 mg/dL (8.5-10.1) Total Bilirubin 0.3 mg/dL (0.2-1.0) Aspartate Amino Transf (AST/SGOT) 28 U/L (15-37) Alanine Aminotransferase (ALT/SGPT) 40 U/L (14-59) Alkaline Phosphatase 578 U/L (46-116) Total Protein 6.8 g/dL (6.4-8.2) Albumin 2.4 g/dL (3.4-5.0) Albumin/Globulin Ratio 0.5 (1.0-1.7) Laboratory Tests Test 10/03/20 05:40 White Blood Count 14.7 x10^3/uL (4.0-11.0) Red Blood Count 4.10 x10^6/uL (3.50-5.40) Hemoglobin 12.0 g/dL (12.0-15.5) Hematocrit 37.4 % (36.0-47.0) Mean Corpuscular Volume 91 fL (79-100) Mean Corpuscular Hemoglobin 29 pg (25-35) Mean Corpuscular Hemoglobin Concent 32 g/dL (31-37) Red Cell Distribution Width 13.9 % (11.5-14.5) Platelet Count 360 x10^3/uL (140-400) Sodium Level 141 mmol/L (136-145) Potassium Level 3.8 mmol/L (3.5-5.1) Chloride Level 107 mmol/L (98-107) Carbon Dioxide Level 21 mmol/L (21-32) Anion Gap 13 (6-14) Blood Urea Nitrogen 37 mg/dL (7-20) Creatinine 1.2 mg/dL (0.6-1.0) Estimated GFR (Cockcroft-Gault) 59.1 BUN/Creatinine Ratio 31 (6-20) Glucose Level 121 mg/dL (70-99) Calcium Level 8.7 mg/dL (8.5-10.1) Total Bilirubin 0.3 mg/dL (0.2-1.0) Aspartate Amino Transf (AST/SGOT) 28 U/L (15-37) Alanine Aminotransferase (ALT/SGPT) 40 U/L (14-59) Alkaline Phosphatase 578 U/L (46-116) Total Protein 6.8 g/dL (6.4-8.2) Albumin 2.4 g/dL (3.4-5.0) Albumin/Globulin Ratio 0.5 (1.0-1.7) Medications Active Scripts Medications Dose Route/Sig Max Daily Dose Days Date Category Cimetidine 200 Mg Tablet 1 Tab PO BID 09/30/20 Reported Femring (Estradiol Acetate) 1 Each Vag.ring 1 Ring VAG [id number] 09/30/20 Reported Naproxen 500 Mg Tablet 1 Tab PO BID 09/30/20 Reported Famotidine 40 Mg Tablet 1 Tab PO DAILY 09/30/20 Reported Sucralfate 1 Gm Tablet 1 Tab PO QID 09/30/20 Reported Progesterone (Progesterone,Micronized) 200 Mg Capsule 1 Cap PO QHS 09/30/20 Reported Ondansetron Odt (Ondansetron) 8 Mg Tab.rapdis 1 Tab PO PRN TID PRN 09/30/20 Reported Prochlorperazine Maleate 10 Mg Tablet 10 Mg PO PRN Q8HRS PRN 09/30/20 Reported Vitamin D2 (Ergocalciferol (Vitamin D2)) 1,250 Mcg Capsule 1 Cap PO TWICE WEEKLY 09/30/20 Reported Mycophenolate Mofetil 500 Mg Tablet 500 Mg PO BID 09/30/20 Reported Colestipol Hcl 1 Gm Tablet 1 Gm PO BID 09/13/19 Reported Escitalopram Oxalate 10 Mg Tablet 10 Mg PO DAILY 09/13/19 Reported Olanzapine 15 Mg Tablet 15 Mg PO QHS 09/13/19 Reported Promethazine Hcl 25 Mg Tablet 25 Mg PO PRN Q8HRS PRN 09/13/19 Reported Voltaren (Diclofenac Sodium) 100 Gm Gel..gram. 100 Gm TP DAILY 09/13/19 Reported Cyclobenzaprine Hcl 10 Mg Tablet 10 Mg PO TID 09/13/19 Reported Furosemide 20 Mg Tablet 20 Mg PO DAILY 09/13/19 Reported Prednisone 5 Mg Tablet 5 Mg PO DAILY 09/13/19 Reported Diphenhydramine Hcl 50 Mg Capsule 50 Mg PO PRN Q6HRS PRN 08/15/17 Reported Benzonatate 100 Mg Capsule 1 Cap PO PRN TID PRN 08/15/17 Reported Ursodiol 300 Mg Capsule 300 Mg PO QID 07/18/14 Reported Levothyroxine Sodium 50 Mcg Tablet 1 Tab PO DAILY 07/18/14 Reported Impression . 1. Acute hypoxic respiratory failure secondary to COVID-19 viral pneumonia, acute lung injury and early acute respiratory distress syndrome. 2. COVID-19 viral pneumonia in the patient who is not vaccinated and immunosuppressed. She is on CellCept and prednisone at home. 3. Abnormal liver function test, could be related to COVID. Not a candidate for tocilizumab. 4. Moderate protein-calorie malnutrition. 5. Nonsmoker. Plan . RECOMMENDATIONS: 1. Continue present oxygen to keep saturations 92% and above. Oxygen requirement slowly improving 2. Continue remdesivir. 3. steroid with dexa for 10 days ,wean to baseline home prednisone dose. 4. Empiric Zosyn and doxycycline was initiated to cover for any superimposed bacterial infection. 5. Continue current aggressive care and follow her respiratory status closely. STEFAN STOCK MD Oct 03, 2020 10:54
[2020-10-03 11:00] VITALS: BP 142/99
[2020-10-03] MEDS: ENOXAPARIN 40 MG/0.4 ML SYRINGE. SQ SCH (14:00)
--- NOTE | 2020-10-03 14:11 | PDOC ---
[employer] PROGRESS NOTE Date of Service DOS: DATE: 10/03/20 TIME: 14:10 Chief Complaint Chief Complaint Shortness of breath History of Present Illness History of Present Illness Patient is a 45-year-old female transferred from [facility] overnight due to COVID-19 pneumonia. She presented to the outside hospital September 27 complaining of 2-day history of shortness of breath that was worsening. Per report from them she was diagnosed with Covid on September 24. Patient reported she was also having some nausea and decreased p.o. tolerance. On arrival to [facility] she was noted to have sinus tach and hypoxia requiring 6 L nasal cannula to bring her saturations into the 90s. She was started on steroids and Levaquin. At that point due to failure increasing respiratory status [facility] contacted for transfer to the ICU here. This was delayed due to bed availability but patient eventually arrived here September 29. When seen at this morning she was on 10 L nonrebreather. She does have a history of autoimmune hepatitis on home CellCept. We will hold this medication given positive Covid. Patient reported she has had to hold it in the past befo re without major issue. 10/01 Patient evaluated at bedside. She was on 10L NRB. Complaining of unilateral headache. Continued covid treatment. 10/02 Patient seen at bedside she was on 8 L nasal cannula. Does report her breathing feels somewhat better. No further headaches. Continue current Covid treatment. Wean O2 as tolerated. Remains on remdesivir and IV antibiotics. 10/03 Patient evaluated bedside on 8 L nasal cannula. Does report continued improved respiratory status. Complaining of some fatigue. Continue to wean O2 continue Covid treat minute. Possible discharge over the weekend. Vitals/I&O Vitals/I&O: Vital Signs Date Time Temp Pulse Resp B/P (MAP) Pulse Ox O2 Delivery O2 Flow Rate FiO2 10/03/20 11:00 97.5 88 16 142/99 (113) 96 Nasal Cannula 8.0 97.5 I & O 10/02/20 10/02/20 10/03/20 15:00 23:00 07:00 Intake Total 150 ml 430 ml 650 ml Output Total 400 ml 500 ml Balance 150 ml 30 ml 150 ml Physical Exam General: Alert, Oriented X3, Cooperative, moderate distress Heart: Regular rate, Normal S1, Normal S2 Abdomen: Normal bowel sounds, Soft Extremities: No clubbing, No cyanosis, No edema, Normal pulses Skin: No breakdown, No significant lesion Labs Labs: Laboratory Tests Test 10/03/20 05:40 White Blood Count 14.7 x10^3/uL (4.0-11.0) Red Blood Count 4.10 x10^6/uL (3.50-5.40) Hemoglobin 12.0 g/dL (12.0-15.5) Hematocrit 37.4 % (36.0-47.0) Mean Corpuscular Volume 91 fL (79-100) Mean Corpuscular Hemoglobin 29 pg (25-35) Mean Corpuscular Hemoglobin Concent 32 g/dL (31-37) Red Cell Distribution Width 13.9 % (11.5-14.5) Platelet Count 360 x10^3/uL (140-400) Sodium Level 141 mmol/L (136-145) Potassium Level 3.8 mmol/L (3.5-5.1) Chloride Level 107 mmol/L (98-107) Carbon Dioxide Level 21 mmol/L (21-32) Anion Gap 13 (6-14) Blood Urea Nitrogen 37 mg/dL (7-20) Creatinine 1.2 mg/dL (0.6-1.0) Estimated GFR (Cockcroft-Gault) 59.1 BUN/Creatinine Ratio 31 (6-20) Glucose Level 121 mg/dL (70-99) Calcium Level 8.7 mg/dL (8.5-10.1) Total Bilirubin 0.3 mg/dL (0.2-1.0) Aspartate Amino Transf (AST/SGOT) 28 U/L (15-37) Alanine Aminotransferase (ALT/SGPT) 40 U/L (14-59) Alkaline Phosphatase 578 U/L (46-116) Total Protein 6.8 g/dL (6.4-8.2) Albumin 2.4 g/dL (3.4-5.0) Albumin/Globulin Ratio 0.5 (1.0-1.7) Assessment and Plan Assessmemt and Plan Assessment/Plan Patient is a 45-year-old -[place] female sent here from [facility] due to COVID-19 positive test (U07.1, COVID-19) with Acute Pneumonia (J12.89, Other viral pneumonia) COVID-19 positive, pneumonia secondary to COVID-19, autoimmune hepatitis, -Presented to outside hospital with worsening shortness of breath had been Covid +3 days prior -Sent here due to concern for deteriorating respiratory status -Currently requiring 8 L nasal cannula -Covid protocol ordered -Holding home mycophenolate due to acute infection. We will continue dexamethasone -Home medications resumed as indicated -DVT prophylaxis Comment Review of Relevant I have reviewed the following items poli (where applicable) has been applied. Medications: Current Medications Medications (Trade) Dose Ordered Sig/Olegario Route PRN Reason Start Time Stop Time Status Last Admin Dose Admin Amlodipine Besylate (Norvasc) 10 mg HS PO 10/02/20 22:00 10/02/20 22:04 Acetaminophen/ Hydrocodone Bitart (Lortab 5/325) 1 tab PRN Q4HRS PRN PO PAIN 10/02/20 21:30 10/02/20 22:04 Oxymetazoline HCl (Afrin) 2 spray BID NS 10/02/20 22:00 10/03/20 09:00 Justifications for Admission Other Justification MILLIE TELLO MD Oct 03, 2020 14:11
[2020-10-03 15:00] VITALS: BP 164/111
[2020-10-03 19:00] VITALS: BP 147/99
[2020-10-03] MEDS: REMDESIVIR 100mg in NORMAL SALINE 250ML X 4 DAYS IV SCH ×2 (19:30→19:48)
[2020-10-03] MEDS: OLANZapine 5 MG TABLET PO SCH (19:46)
[2020-10-03] MEDS: PROGESTERONE, MICRONIZED 100 MG CAPSULE PO SCH (19:47)
[2020-10-03 23:00] VITALS: BP 154/98
[2020-10-04] MEDS: PIPERACILLIN/TAZOBACTAM 3.375 GM in IV NORMAL SALINE 50ML 50 ML IV SCH ×5 (00:17→23:58)
[2020-10-04 02:51] VITALS: BP 133/93
[2020-10-04] MEDS: LEVOTHYROXINE 50 MCG TABLET PO SCH (06:37)
[2020-10-04 07:00] VITALS: BP 157/105
--- NOTE | 2020-10-04 08:55 | PDOC ---
PULMONARY PROGRESS NOTES DATE: 10/04/20 TIME: 08:54 Subjective Patient now on 8 L nasal cannula. is tired sob better Vitals Vital Signs Date Time Temp Pulse Resp B/P (MAP) Pulse Ox O2 Delivery O2 Flow Rate FiO2 10/04/20 07:00 96.8 85 18 157/105 (122) 97 Nasal Cannula 8.0 96.8 Comments Visual exam done due to COVID-19 pneumonia. No paradoxical breathing no respiratory distress no skin rash no leg edema Labs Laboratory Tests Test 10/03/20 05:40 White Blood Count 14.7 x10^3/uL (4.0-11.0) Red Blood Count 4.10 x10^6/uL (3.50-5.40) Hemoglobin 12.0 g/dL (12.0-15.5) Hematocrit 37.4 % (36.0-47.0) Mean Corpuscular Volume 91 fL (79-100) Mean Corpuscular Hemoglobin 29 pg (25-35) Mean Corpuscular Hemoglobin Concent 32 g/dL (31-37) Red Cell Distribution Width 13.9 % (11.5-14.5) Platelet Count 360 x10^3/uL (140-400) Sodium Level 141 mmol/L (136-145) Potassium Level 3.8 mmol/L (3.5-5.1) Chloride Level 107 mmol/L (98-107) Carbon Dioxide Level 21 mmol/L (21-32) Anion Gap 13 (6-14) Blood Urea Nitrogen 37 mg/dL (7-20) Creatinine 1.2 mg/dL (0.6-1.0) Estimated GFR (Cockcroft-Gault) 59.1 BUN/Creatinine Ratio 31 (6-20) Glucose Level 121 mg/dL (70-99) Calcium Level 8.7 mg/dL (8.5-10.1) Total Bilirubin 0.3 mg/dL (0.2-1.0) Aspartate Amino Transf (AST/SGOT) 28 U/L (15-37) Alanine Aminotransferase (ALT/SGPT) 40 U/L (14-59) Alkaline Phosphatase 578 U/L (46-116) Total Protein 6.8 g/dL (6.4-8.2) Albumin 2.4 g/dL (3.4-5.0) Albumin/Globulin Ratio 0.5 (1.0-1.7) Medications Active Scripts Medications Dose Route/Sig Max Daily Dose Days Date Category Cimetidine 200 Mg Tablet 1 Tab PO BID 09/30/20 Reported Femring (Estradiol Acetate) 1 Each Vag.ring 1 Ring VAG [id number] 09/30/20 Reported Naproxen 500 Mg Tablet 1 Tab PO BID 09/30/20 Reported Famotidine 40 Mg Tablet 1 Tab PO DAILY 09/30/20 Reported Sucralfate 1 Gm Tablet 1 Tab PO QID 09/30/20 Reported Progesterone (Progesterone,Micronized) 200 Mg Capsule 1 Cap PO QHS 09/30/20 Reported Ondansetron Odt (Ondansetron) 8 Mg Tab.rapdis 1 Tab PO PRN TID PRN 09/30/20 Reported Prochlorperazine Maleate 10 Mg Tablet 10 Mg PO PRN Q8HRS PRN 09/30/20 Reported Vitamin D2 (Ergocalciferol (Vitamin D2)) 1,250 Mcg Capsule 1 Cap PO TWICE WEEKLY 09/30/20 Reported Mycophenolate Mofetil 500 Mg Tablet 500 Mg PO BID 09/30/20 Reported Colestipol Hcl 1 Gm Tablet 1 Gm PO BID 09/13/19 Reported Escitalopram Oxalate 10 Mg Tablet 10 Mg PO DAILY 09/13/19 Reported Olanzapine 15 Mg Tablet 15 Mg PO QHS 09/13/19 Reported Promethazine Hcl 25 Mg Tablet 25 Mg PO PRN Q8HRS PRN 09/13/19 Reported Voltaren (Diclofenac Sodium) 100 Gm Gel..gram. 100 Gm TP DAILY 09/13/19 Reported Cyclobenzaprine Hcl 10 Mg Tablet 10 Mg PO TID 09/13/19 Reported Furosemide 20 Mg Tablet 20 Mg PO DAILY 09/13/19 Reported Prednisone 5 Mg Tablet 5 Mg PO DAILY 09/13/19 Reported Diphenhydramine Hcl 50 Mg Capsule 50 Mg PO PRN Q6HRS PRN 08/15/17 Reported Benzonatate 100 Mg Capsule 1 Cap PO PRN TID PRN 08/15/17 Reported Ursodiol 300 Mg Capsule 300 Mg PO QID 07/18/14 Reported Levothyroxine Sodium 50 Mcg Tablet 1 Tab PO DAILY 07/18/14 Reported Impression . 1. Acute hypoxic respiratory failure secondary to COVID-19 viral pneumonia, acute lung injury and early acute respiratory distress syndrome. 2. COVID-19 viral pneumonia in the patient who is not vaccinated and immunosuppressed. She is on CellCept and prednisone at home. 3. Abnormal liver function test, could be related to COVID. Not a candidate for tocilizumab. 4. Moderate protein-calorie malnutrition. 5. Nonsmoker. Plan . RECOMMENDATIONS: 1. Continue present oxygen to keep saturations 90% and above. Oxygen requirement slowly improving 2. Continue remdesivir. 3. steroid with dexa for 10 days ,wean to baseline home prednisone dose. 4. Empiric Zosyn and doxycycline was initiated to cover for any superimposed bacterial infection. 5. Continue current aggressive care and follow her respiratory status closely. discussed w pt JIM MCKEE MD Oct 04, 2020 08:55
[2020-10-04] MEDS: OXYMETAZOLINE 0.05% NASAL SPRAY 30ML BOTTLE. NS SCH ×2 (09:15→21:00)
[2020-10-04] MEDS: MULTIVITAMIN with MINERAL TABLET. PO SCH (09:20)
[2020-10-04] MEDS: COLESTIPOL HCL 1 GM TABLET PO SCH ×2 (09:20→20:20)
[2020-10-04] MEDS: URSODIOL 300 MG CAPSULE. PO SCH ×4 (09:20→20:20)
[2020-10-04] MEDS: ASPIRIN ENTERIC COATED 81 MG TABLET.DR. PO SCH (09:21)
[2020-10-04] MEDS: CYCLOBENZAPRINE 10 MG TABLET. PO SCH ×3 (09:21→20:20)
[2020-10-04] MEDS: DEXAMETHASONE 4 MG TABLET PO SCH ×2 (09:21→20:20)
[2020-10-04] MEDS: FAMOTIDINE 20 MG TABLET. PO SCH (09:21)
[2020-10-04] MEDS: CITALOPRAM 20 MG TABLET. PO SCH (09:22)
[2020-10-04] MEDS: DOXYCYCLINE HYCLATE 100 MG in IV DEXTROSE 5% 100ML 100 ML IV SCH ×2 (09:22→20:21)
[2020-10-04] MEDS: FUROSEMIDE 20 MG TABLET PO SCH (09:22)
[2020-10-04 11:00] VITALS: BP 129/88
[2020-10-04] MEDS: MORPHINE SULFATE 4 MG/ML INJ. IV PRN ×2 (11:13→20:21)
--- NOTE | 2020-10-04 14:31 | PDOC ---
GENERAL General: Patient examined chart reviewed today's hospital day 6 for this patient with Co vid pneumonia. She is slowly coming down her oxygen requirements. We appreciate pulmonary support. Liver function tests are elevated given her autoimmune hepatitis. We are holding CellCept. Continue current management otherwise. Time spent today is 30 minutes with greater than 50% in counseling and coordination of care most of which in discussion with patient. The patient was seen in full isolation gear including N95 respirator covered with a surgical mask, goggles covering eyewear, and contact isolation robe and hair cover. Problems: (1) Pneumonia due to COVID-19 virus (2) Autoimmune disease of liver VITAL SIGNS Vital Signs/I&O: Vital Signs Date Time Temp Pulse Resp B/P (MAP) Pulse Ox O2 Delivery O2 Flow Rate FiO2 10/04/20 11:00 96.9 90 18 129/88 (102) 95 Nasal Cannula 8.0 96.9 I & O0 10/03/20 10/03/20 10/04/20 15:00 23:00 07:00 Intake Total 220 ml 1000 ml 50 ml Output Total 950 ml 600 ml Balance 220 ml 50 ml -550 ml In general patient is dyspneic but comfortable alert and oriented x3 no acute distress HEENT exam is unremarkable Chest is notable for diminished air entry throughout no crackles or wheezes are noted Heart S1-S2 normal tachycardic no murmurs or gallops are noted Extremity exam is unremarkable for acute abnormality ALLERGIES Allergies: Allergies Coded Allergies Type Severity Reaction Last Updated Verified No Known Drug Allergies 09/13/19 No MEDS Medications: Current Medications Medications (Trade) Dose Ordered Sig/Olegario Start Time Stop Time Status Last Admin Dose Admin Acetaminophen/ Hydrocodone Bitart (Lortab 5/325) 1 tab PRN Q4HRS PRN 10/02/20 21:30 10/02/20 22:04 Amlodipine Besylate (Norvasc) 10 mg HS 10/02/20 22:00 10/03/20 19:47 Aspirin (Ecotrin) 81 mg [id number] 09/30/20 08:00 10/04/20 09:21 Benzonatate (Tessalon Perle) 100 mg PRN TID PRN 09/30/20 09:30 10/02/20 22:08 Citalopram Hydrobromide (CeleXA) 20 mg DAILY 09/30/20 10:00 10/04/20 09:22 Colestipol HCl (Colestid) 1 gm BID@1000,2200 09/30/20 10:00 10/04/20 09:20 Cyclobenzaprine HCl (Flexeril) 10 mg TID 09/30/20 14:00 10/04/20 09:21 Dexamethasone (Decadron) 10 mg BID 09/30/20 09:00 10/04/20 09:21 Doxycycline Hyclate 100 mg/ Dextrose 100 ml @ 50 mls/hr Q12HR 09/30/20 09:00 10/04/20 09:22 Enoxaparin Sodium (Lovenox 40mg Syringe) 40 mg Q24H 09/30/20 15:00 Famotidine (Pepcid) 40 mg DAILY 09/30/20 10:00 10/04/20 09:21 Furosemide (Lasix) 20 mg DAILY 09/30/20 10:00 10/04/20 09:22 Lactobacillus Rhamnosus (Culturelle) 1 cap BID 09/30/20 21:00 Cancel Levothyroxine Sodium (Synthroid) 50 mcg DAILY06 10/01/20 09:00 10/04/20 06:37 Morphine Sulfate (Morphine Sulfate) 4 mg PRN Q4HRS PRN 09/30/20 01:00 10/04/20 11:13 Multivitamins (Thera M Plus) 1 tab DAILY 09/30/20 09:00 10/04/20 09:20 Non-Formulary Medication (Cimetidine ) 1 tab BID 09/30/20 21:00 UNV Olanzapine (ZyPREXA) 15 mg QHS 09/30/20 21:00 10/03/20 19:46 Ondansetron HCl (Zofran) 4 mg PRN Q4HRS PRN 09/30/20 01:00 09/30/20 03:10 Oxycodone/ Acetaminophen (Percocet 7.5/ 325) 1 tab 1X ONCE 10/01/20 09:00 10/01/20 09:01 DC 10/01/20 09:51 Oxymetazoline HCl (Afrin) 2 spray BID 10/02/20 22:00 10/04/20 09:15 Piperacillin Sod/ Tazobactam Sod (Zosyn Per Pharmacy) 1 each PRN DAILY PRN 09/30/20 01:00 Piperacillin Sod/ Tazobactam Sod 3.375 gm/Sodium Chloride 50 ml @ 100 mls/hr Q6HRS 09/30/20 06:00 10/04/20 11:13 Progesterone (Prometrium) 200 mg QHS 09/30/20 21:00 10/03/20 19:47 Remdesivir 100 mg/ Sodium Chloride 230 ml @ 460 mls/hr Q24H 09/30/20 19:30 10/03/20 19:59 DC 10/03/20 19:30 Ursodiol (Actigall) 300 mg QID 09/30/20 13:00 10/04/20 09:20 ASSESSMENT & PLAN A&P Plan as noted above This note was created using [employer] and may have omissions and/or errors due to the nature of real-time voice medical center director. Justifications for Admission Other Justification DEEDEE VALDIVIA MD Oct 04, 2020 14:31
[2020-10-04 15:00] VITALS: BP 175/107
[2020-10-04 19:38] VITALS: BP 136/97
[2020-10-04] MEDS: PROGESTERONE, MICRONIZED 100 MG CAPSULE PO SCH (20:20)
[2020-10-04] MEDS: OLANZapine 5 MG TABLET PO SCH (20:20)
[2020-10-04] MEDS: ENOXAPARIN 40 MG/0.4 ML SYRINGE. SQ SCH (20:20)
[2020-10-04] MEDS: ONDANSETRON PF 4 MG/2 ML VIAL. IVP PRN (20:23)
[2020-10-04 22:36] VITALS: BP 138/98
[2020-10-05 03:04] VITALS: BP 141/89
[2020-10-05 05:46] LABS: ALBUMIN 2.1 g/dL (3.4-5.0); ALBUMIN/GLOBULIN RATIO 0.5 (1.0-1.7); CALCIUM 8.3 mg/dL (8.5-10.1); CREATININE 1.1 mg/dL (0.6-1.0); GFR 65.3; POTASSIUM 3.5 mmol/L (3.5-5.1); TOTAL BILIRUBIN 0.4 mg/dL (0.2-1.0)
[2020-10-05 05:48] LABS: BASO # 0.1 x10^3/uL (0.0-0.2); BASO % 0 % (0-3); EOS # 0.2 x10^3/uL (0.0-0.7); EOS % 1 % (0-3); HEMATOCRIT 36.1 % (36.0-47.0); HEMOGLOBIN 11.9 g/dL (12.0-15.5); LYMPH # 1.7 x10^3/uL (1.0-4.8); LYMPH % 9 % (24-48); MEAN CORPUSCULAR HEMOGLOBIN 30 pg (25-35); MEAN CORPUSCULAR HGB CONC 33 g/dL (31-37); MEAN CORPUSCULAR VOLUME 90 fL (79-100); MONO # 0.8 x10^3/uL (0.0-1.1); MONO % 4 % (0-9); NEUT # 16.5 x10^3/uL (1.8-7.7); NEUT % 86 % (31-73); PLATELET COUNT 299 x10^3/uL (140-400); RED BLOOD COUNT 4.01 x10^6/uL (3.50-5.40); RED CELL DISTRIBUTION WIDTH 13.8 % (11.5-14.5); WHITE BLOOD COUNT 19.2 x10^3/uL (4.0-11.0)
[2020-10-05] MEDS: LEVOTHYROXINE 50 MCG TABLET PO SCH (06:09)
[2020-10-05] MEDS: PIPERACILLIN/TAZOBACTAM 3.375 GM in IV NORMAL SALINE 50ML 50 ML IV SCH ×4 (06:10→23:23)
[2020-10-05 07:00] VITALS: BP 117/82
--- NOTE | 2020-10-05 08:22 | PDOC ---
PULMONARY PROGRESS NOTES DATE: 10/05/20 TIME: 08:21 Subjective Patient now on 8 L nasal cannula. is tired has occ cough sob better Vitals Vital Signs Date Time Temp Pulse Resp B/P (MAP) Pulse Ox O2 Delivery O2 Flow Rate FiO2 10/05/20 03:04 97.7 86 16 141/89 (106) 98 Nasal Cannula 8.0 97.7 Comments Visual exam done due to COVID-19 pneumonia. no distress nc at rrr No paradoxical breathing no respiratory distress no skin rash no leg edema Labs Laboratory Tests Test 10/05/20 03:40 White Blood Count 19.2 x10^3/uL (4.0-11.0) Red Blood Count 4.01 x10^6/uL (3.50-5.40) Hemoglobin 11.9 g/dL (12.0-15.5) Hematocrit 36.1 % (36.0-47.0) Mean Corpuscular Volume 90 fL (79-100) Mean Corpuscular Hemoglobin 30 pg (25-35) Mean Corpuscular Hemoglobin Concent 33 g/dL (31-37) Red Cell Distribution Width 13.8 % (11.5-14.5) Platelet Count 299 x10^3/uL (140-400) Neutrophils (%) (Auto) 86 % (31-73) Lymphocytes (%) (Auto) 9 % (24-48) Monocytes (%) (Auto) 4 % (0-9) Eosinophils (%) (Auto) 1 % (0-3) Basophils (%) (Auto) 0 % (0-3) Neutrophils # (Auto) 16.5 x10^3/uL (1.8-7.7) Lymphocytes # (Auto) 1.7 x10^3/uL (1.0-4.8) Monocytes # (Auto) 0.8 x10^3/uL (0.0-1.1) Eosinophils # (Auto) 0.2 x10^3/uL (0.0-0.7) Basophils # (Auto) 0.1 x10^3/uL (0.0-0.2) Sodium Level 141 mmol/L (136-145) Potassium Level 3.5 mmol/L (3.5-5.1) Chloride Level 107 mmol/L (98-107) Carbon Dioxide Level 25 mmol/L (21-32) Anion Gap 9 (6-14) Blood Urea Nitrogen 31 mg/dL (7-20) Creatinine 1.1 mg/dL (0.6-1.0) Estimated GFR (Cockcroft-Gault) 65.3 BUN/Creatinine Ratio 28 (6-20) Glucose Level 97 mg/dL (70-99) Calcium Level 8.3 mg/dL (8.5-10.1) Total Bilirubin 0.4 mg/dL (0.2-1.0) Aspartate Amino Transf (AST/SGOT) 21 U/L (15-37) Alanine Aminotransferase (ALT/SGPT) 25 U/L (14-59) Alkaline Phosphatase 417 U/L (46-116) Total Protein 6.0 g/dL (6.4-8.2) Albumin 2.1 g/dL (3.4-5.0) Albumin/Globulin Ratio 0.5 (1.0-1.7) Laboratory Tests Test 10/05/20 03:40 White Blood Count 19.2 x10^3/uL (4.0-11.0) Red Blood Count 4.01 x10^6/uL (3.50-5.40) Hemoglobin 11.9 g/dL (12.0-15.5) Hematocrit 36.1 % (36.0-47.0) Mean Corpuscular Volume 90 fL (79-100) Mean Corpuscular Hemoglobin 30 pg (25-35) Mean Corpuscular Hemoglobin Concent 33 g/dL (31-37) Red Cell Distribution Width 13.8 % (11.5-14.5) Platelet Count 299 x10^3/uL (140-400) Neutrophils (%) (Auto) 86 % (31-73) Lymphocytes (%) (Auto) 9 % (24-48) Monocytes (%) (Auto) 4 % (0-9) Eosinophils (%) (Auto) 1 % (0-3) Basophils (%) (Auto) 0 % (0-3) Neutrophils # (Auto) 16.5 x10^3/uL (1.8-7.7) Lymphocytes # (Auto) 1.7 x10^3/uL (1.0-4.8) Monocytes # (Auto) 0.8 x10^3/uL (0.0-1.1) Eosinophils # (Auto) 0.2 x10^3/uL (0.0-0.7) Basophils # (Auto) 0.1 x10^3/uL (0.0-0.2) Sodium Level 141 mmol/L (136-145) Potassium Level 3.5 mmol/L (3.5-5.1) Chloride Level 107 mmol/L (98-107) Carbon Dioxide Level 25 mmol/L (21-32) Anion Gap 9 (6-14) Blood Urea Nitrogen 31 mg/dL (7-20) Creatinine 1.1 mg/dL (0.6-1.0) Estimated GFR (Cockcroft-Gault) 65.3 BUN/Creatinine Ratio 28 (6-20) Glucose Level 97 mg/dL (70-99) Calcium Level 8.3 mg/dL (8.5-10.1) Total Bilirubin 0.4 mg/dL (0.2-1.0) Aspartate Amino Transf (AST/SGOT) 21 U/L (15-37) Alanine Aminotransferase (ALT/SGPT) 25 U/L (14-59) Alkaline Phosphatase 417 U/L (46-116) Total Protein 6.0 g/dL (6.4-8.2) Albumin 2.1 g/dL (3.4-5.0) Albumin/Globulin Ratio 0.5 (1.0-1.7) Medications Active Scripts Medications Dose Route/Sig Max Daily Dose Days Date Category Cimetidine 200 Mg Tablet 1 Tab PO BID 09/30/20 Reported Femring (Estradiol Acetate) 1 Each Vag.ring 1 Ring VAG [id number] 09/30/20 Reported Naproxen 500 Mg Tablet 1 Tab PO BID 09/30/20 Reported Famotidine 40 Mg Tablet 1 Tab PO DAILY 09/30/20 Reported Sucralfate 1 Gm Tablet 1 Tab PO QID 09/30/20 Reported Progesterone (Progesterone,Micronized) 200 Mg Capsule 1 Cap PO QHS 09/30/20 Reported Ondansetron Odt (Ondansetron) 8 Mg Tab.rapdis 1 Tab PO PRN TID PRN 09/30/20 Reported Prochlorperazine Maleate 10 Mg Tablet 10 Mg PO PRN Q8HRS PRN 09/30/20 Reported Vitamin D2 (Ergocalciferol (Vitamin D2)) 1,250 Mcg Capsule 1 Cap PO TWICE WEEKLY 09/30/20 Reported Mycophenolate Mofetil 500 Mg Tablet 500 Mg PO BID 09/30/20 Reported Colestipol Hcl 1 Gm Tablet 1 Gm PO BID 09/13/19 Reported Escitalopram Oxalate 10 Mg Tablet 10 Mg PO DAILY 09/13/19 Reported Olanzapine 15 Mg Tablet 15 Mg PO QHS 09/13/19 Reported Promethazine Hcl 25 Mg Tablet 25 Mg PO PRN Q8HRS PRN 09/13/19 Reported Voltaren (Diclofenac Sodium) 100 Gm Gel..gram. 100 Gm TP DAILY 09/13/19 Reported Cyclobenzaprine Hcl 10 Mg Tablet 10 Mg PO TID 09/13/19 Reported Furosemide 20 Mg Tablet 20 Mg PO DAILY 09/13/19 Reported Prednisone 5 Mg Tablet 5 Mg PO DAILY 09/13/19 Reported Diphenhydramine Hcl 50 Mg Capsule 50 Mg PO PRN Q6HRS PRN 08/15/17 Reported Benzonatate 100 Mg Capsule 1 Cap PO PRN TID PRN 08/15/17 Reported Ursodiol 300 Mg Capsule 300 Mg PO QID 07/18/14 Reported Levothyroxine Sodium 50 Mcg Tablet 1 Tab PO DAILY 07/18/14 Reported Impression . 1. Acute hypoxic respiratory failure secondary to COVID-19 viral pneumonia, acute lung injury and early acute respiratory distress syndrome. 2. COVID-19 viral pneumonia in the patient who is not vaccinated and immunosuppressed. She is on CellCept and prednisone at home. 3. Abnormal liver function test, could be related to COVID. Not a candidate for tocilizumab. 4. Moderate protein-calorie malnutrition. 5. Nonsmoker. Plan . RECOMMENDATIONS: 1. titrate fio2 to keep saturations 90%. Oxygen requirement slowly improving IS to use multiple times an hour 2. Continue remdesivir. 3. steroid with dexa for 10 days ,wean to baseline home prednisone dose. 4. Empiric Zosyn and doxycycline was initiated to cover for any superimposed bacterial infection. 5. Continue current aggressive care and follow her respiratory status closely. discussed w pt/rn JIM MCKEE MD Oct 05, 2020 08:22
[2020-10-05] MEDS ORDERED: LACTOBACILLUS RHAMNOSUS GG 1 CAPSULE. PO SCH (09:00)
[2020-10-05] MEDS: OXYMETAZOLINE 0.05% NASAL SPRAY 30ML BOTTLE. NS SCH ×2 (09:00→20:23)
[2020-10-05] MEDS: DEXAMETHASONE 4 MG TABLET PO SCH ×2 (09:08→20:22)
[2020-10-05] MEDS: COLESTIPOL HCL 1 GM TABLET PO SCH ×2 (09:09→20:24)
[2020-10-05] MEDS: CYCLOBENZAPRINE 10 MG TABLET. PO SCH ×3 (09:09→20:21)
[2020-10-05] MEDS: MULTIVITAMIN with MINERAL TABLET. PO SCH (09:09)
[2020-10-05] MEDS: FAMOTIDINE 20 MG TABLET. PO SCH (09:09)
[2020-10-05] MEDS: URSODIOL 300 MG CAPSULE. PO SCH ×4 (09:09→20:21)
[2020-10-05] MEDS: CITALOPRAM 20 MG TABLET. PO SCH (09:10)
[2020-10-05] MEDS: ASPIRIN ENTERIC COATED 81 MG TABLET.DR. PO SCH (09:10)
[2020-10-05] MEDS: FUROSEMIDE 20 MG TABLET PO SCH (09:10)
[2020-10-05] MEDS: DOXYCYCLINE HYCLATE 100 MG in IV DEXTROSE 5% 100ML 100 ML IV SCH ×2 (09:10→20:23)
[2020-10-05] MEDS: MORPHINE SULFATE 4 MG/ML INJ. IV PRN ×2 (09:11→20:22)
[2020-10-05 11:04] VITALS: BP 132/97
--- NOTE | 2020-10-05 12:29 | PDOC ---
GENERAL General: Patient examined chart reviewed no overnight events noted. She is getting stronger, and good spirits today. No new complaints noted. Elevated white count is likely due to the ongoing steroids which are currently being tapered. Her oxygen requirements are coming down slightly. The patient was seen in full isolation gear including N95 respirator covered with a surgical mask, goggles covering eyewear, and contact isolation robe and hair cover. Problems: (1) Pneumonia due to COVID-19 virus (2) Autoimmune disease of liver VITAL SIGNS Vital Signs/I&O: Vital Signs Date Time Temp Pulse Resp B/P (MAP) Pulse Ox O2 Delivery O2 Flow Rate FiO2 10/05/20 11:04 97.6 89 22 132/97 (109) 96 Nasal Cannula 8.0 97.6 I & O 10/04/20 10/04/20 10/05/20 15:00 23:00 07:00 Intake Total 325 ml 340 ml 0 ml Output Total 650 ml 150 ml Balance 325 ml -310 ml -150 ml Patient is resting comfortably in bed alert and oriented x3 no acute distress HEENT exam is unremarkable for acute abnormality Neck is soft and supple no adenopathy or thyromegaly noted Chest notable for diminished air entry throughout dyspneic on assessment no crackles or wheezes are noted Heart S1-S2 normal regular rate and rhythm no murmurs or gallops are noted Abdomen soft nontender nondistended no masses organomegaly noted Extremity exam is unremarkable for acute abnormality Heart ALLERGIES Allergies: Allergies Coded Allergies Type Severity Reaction Last Updated Verified No Known Drug Allergies 09/13/19 No MEDS Medications: Current Medications Medications (Trade) Dose Ordered Sig/Olegario Start Time Stop Time Status Last Admin Dose Admin Acetaminophen/ Hydrocodone Bitart (Lortab 5/325) 1 tab PRN Q4HRS PRN 10/02/20 21:30 10/02/20 22:04 Amlodipine Besylate (Norvasc) 10 mg HS 10/02/20 22:00 10/04/20 20:22 Aspirin (Ecotrin) 81 mg [id number] 09/30/20 08:00 10/05/20 09:10 Benzonatate (Tessalon Perle) 100 mg PRN TID PRN 09/30/20 09:30 10/02/20 22:08 Citalopram Hydrobromide (CeleXA) 20 mg DAILY 09/30/20 10:00 10/05/20 09:10 Colestipol HCl (Colestid) 1 gm BID@1000,2200 09/30/20 10:00 10/05/20 09:09 Cyclobenzaprine HCl (Flexeril) 10 mg TID 09/30/20 14:00 10/05/20 09:09 Dexamethasone (Decadron) 10 mg BID 09/30/20 09:00 10/05/20 09:08 Doxycycline Hyclate 100 mg/ Dextrose 100 ml @ 50 mls/hr Q12HR 09/30/20 09:00 10/05/20 09:10 Enoxaparin Sodium (Lovenox 40mg Syringe) 40 mg Q24H 09/30/20 15:00 10/04/20 20:20 Famotidine (Pepcid) 40 mg DAILY 09/30/20 10:00 10/05/20 09:09 Furosemide (Lasix) 20 mg DAILY 09/30/20 10:00 10/05/20 09:10 Lactobacillus Rhamnosus (Culturelle) 1 cap BID 10/05/20 09:00 Cancel Levothyroxine Sodium (Synthroid) 50 mcg DAILY06 10/01/20 09:00 10/05/20 06:09 Morphine Sulfate (Morphine Sulfate) 4 mg PRN Q4HRS PRN 09/30/20 01:00 10/05/20 09:11 Multivitamins (Thera M Plus) 1 tab DAILY 09/30/20 09:00 10/05/20 09:09 Non-Formulary Medication (Cimetidine ) 1 tab BID 09/30/20 21:00 UNV Olanzapine (ZyPREXA) 15 mg QHS 09/30/20 21:00 10/04/20 20:20 Ondansetron HCl (Zofran) 4 mg PRN Q4HRS PRN 09/30/20 01:00 10/04/20 20:23 Oxycodone/ Acetaminophen (Percocet 7.5/ 325) 1 tab 1X ONCE 10/01/20 09:00 10/01/20 09:01 DC 10/01/20 09:51 Oxymetazoline HCl (Afrin) 2 spray BID 10/02/20 22:00 10/05/20 09:00 Piperacillin Sod/ Tazobactam Sod (Zosyn Per Pharmacy) 1 each PRN DAILY PRN 09/30/20 01:00 Piperacillin Sod/ Tazobactam Sod 3.375 gm/Sodium Chloride 50 ml @ 100 mls/hr Q6HRS 09/30/20 06:00 10/05/20 11:14 Progesterone (Prometrium) 200 mg QHS 09/30/20 21:00 10/04/20 20:20 Remdesivir 100 mg/ Sodium Chloride 230 ml @ 460 mls/hr Q24H 09/30/20 19:30 10/03/20 19:59 DC 10/03/20 19:30 Ursodiol (Actigall) 300 mg QID 09/30/20 13:00 10/05/20 09:09 LAB Lab: Laboratory Tests Test 10/05/20 03:40 White Blood Count 19.2 x10^3/uL (4.0-11.0) H Red Blood Count 4.01 x10^6/uL (3.50-5.40) Hemoglobin 11.9 g/dL (12.0-15.5) L Hematocrit 36.1 % (36.0-47.0) Mean Corpuscular Volume 90 fL (79-100) Mean Corpuscular Hemoglobin 30 pg (25-35) Mean Corpuscular Hemoglobin Concent 33 g/dL (31-37) Red Cell Distribution Width 13.8 % (11.5-14.5) Platelet Count 299 x10^3/uL (140-400) Neutrophils (%) (Auto) 86 % (31-73) H Lymphocytes (%) (Auto) 9 % (24-48) L Monocytes (%) (Auto) 4 % (0-9) Eosinophils (%) (Auto) 1 % (0-3) Basophils (%) (Auto) 0 % (0-3) Neutrophils # (Auto) 16.5 x10^3/uL (1.8-7.7) H Lymphocytes # (Auto) 1.7 x10^3/uL (1.0-4.8) Monocytes # (Auto) 0.8 x10^3/uL (0.0-1.1) Eosinophils # (Auto) 0.2 x10^3/uL (0.0-0.7) Basophils # (Auto) 0.1 x10^3/uL (0.0-0.2) Sodium Level 141 mmol/L (136-145) Potassium Level 3.5 mmol/L (3.5-5.1) Chloride Level 107 mmol/L (98-107) Carbon Dioxide Level 25 mmol/L (21-32) Anion Gap 9 (6-14) Blood Urea Nitrogen 31 mg/dL (7-20) H Creatinine 1.1 mg/dL (0.6-1.0) H Estimated GFR (Cockcroft-Gault) 65.3 BUN/Creatinine Ratio 28 (6-20) H Glucose Level 97 mg/dL (70-99) Calcium Level 8.3 mg/dL (8.5-10.1) L Total Bilirubin 0.4 mg/dL (0.2-1.0) Aspartate Amino Transferase (AST) 21 U/L (15-37) Alanine Aminotransferase (ALT) 25 U/L (14-59) Alkaline Phosphatase 417 U/L (46-116) H Total Protein 6.0 g/dL (6.4-8.2) L Albumin 2.1 g/dL (3.4-5.0) L Albumin/Globulin Ratio 0.5 (1.0-1.7) L Laboratory Tests 10/05/20 03:40 Laboratory Tests 10/05/20 03:40 ASSESSMENT & PLAN A&P Plan as noted above This note was created using [employer] and may have omissions and/or errors due to the nature of real-time voice helmet binder. Justifications for Admission Other Justification DEEDEE VALDIVIA MD Oct 05, 2020 12:29
[2020-10-05 15:00] VITALS: BP 134/86
[2020-10-05] MEDS: ENOXAPARIN 40 MG/0.4 ML SYRINGE. SQ SCH (17:22)
[2020-10-05 19:20] VITALS: BP 144/83
[2020-10-05] MEDS: PROGESTERONE, MICRONIZED 100 MG CAPSULE PO SCH (20:22)
[2020-10-05] MEDS: OLANZapine 5 MG TABLET PO SCH (20:22)
[2020-10-05 22:35] VITALS: BP 131/78
[2020-10-06 02:45] VITALS: BP 140/90
[2020-10-06] MEDS: LEVOTHYROXINE 50 MCG TABLET PO SCH ×2 (05:26→09:13)
[2020-10-06] MEDS: PIPERACILLIN/TAZOBACTAM 3.375 GM in IV NORMAL SALINE 50ML 50 ML IV SCH ×4 (05:26→23:37)
[2020-10-06 07:00] VITALS: BP 138/81
[2020-10-06 08:37] LABS: ALBUMIN/GLOBULIN RATIO 0.5 (1.0-1.7); CALCIUM 8.4 mg/dL (8.5-10.1); CREATININE 0.9 mg/dL (0.6-1.0); GFR 82.3; POTASSIUM 3.2 mmol/L (3.5-5.1); TOTAL BILIRUBIN 0.4 mg/dL (0.2-1.0); TOTAL PROTEIN 6.1 g/dL (6.4-8.2)
[2020-10-06 08:46] LABS: BASO # 0.1 x10^3/uL (0.0-0.2); BASO % 0 % (0-3); EOS % 0 % (0-3); HEMOGLOBIN 11.6 g/dL (12.0-15.5); LYMPH % 9 % (24-48); MEAN CORPUSCULAR HEMOGLOBIN 29 pg (25-35); MEAN CORPUSCULAR HGB CONC 32 g/dL (31-37); MEAN CORPUSCULAR VOLUME 90 fL (79-100); MONO # 1.1 x10^3/uL (0.0-1.1); MONO % 5 % (0-9); NEUT % 85 % (31-73); PLATELET COUNT 368 x10^3/uL (140-400); RED BLOOD COUNT 3.99 x10^6/uL (3.50-5.40); RED CELL DISTRIBUTION WIDTH 13.5 % (11.5-14.5); WHITE BLOOD COUNT 21.2 x10^3/uL (4.0-11.0)
[2020-10-06] MEDS: OXYMETAZOLINE 0.05% NASAL SPRAY 30ML BOTTLE. NS SCH ×2 (09:00→20:49)
[2020-10-06] MEDS: COLESTIPOL HCL 1 GM TABLET PO SCH ×2 (09:11→20:48)
[2020-10-06] MEDS: MULTIVITAMIN with MINERAL TABLET. PO SCH (09:11)
[2020-10-06] MEDS: CYCLOBENZAPRINE 10 MG TABLET. PO SCH ×3 (09:11→20:48)
[2020-10-06] MEDS: FAMOTIDINE 20 MG TABLET. PO SCH (09:11)
[2020-10-06] MEDS: DEXAMETHASONE 4 MG TABLET PO SCH ×2 (09:12→20:48)
[2020-10-06] MEDS: CITALOPRAM 20 MG TABLET. PO SCH (09:12)
[2020-10-06] MEDS: FUROSEMIDE 20 MG TABLET PO SCH (09:12)
[2020-10-06] MEDS: ASPIRIN ENTERIC COATED 81 MG TABLET.DR. PO SCH (09:12)
[2020-10-06] MEDS: MORPHINE SULFATE 4 MG/ML INJ. IV PRN ×2 (09:13→20:48)
[2020-10-06] MEDS: DOXYCYCLINE HYCLATE 100 MG in IV DEXTROSE 5% 100ML 100 ML IV SCH ×2 (09:14→20:47)
[2020-10-06] MEDS: URSODIOL 300 MG CAPSULE. PO SCH ×4 (09:20→20:48)
[2020-10-06 10:13] LABS: % BANDS 1 % (0-9); % LYMPHS 10 % (24-48); % MONOS 4 % (0-10); % MYELOS 1 % (0-0); % SEGS 84 % (35-66); PLT ESTIMATE ADEQUATE (ADEQUATE)
[2020-10-06 11:00] VITALS: BP 128/82
--- NOTE | 2020-10-06 11:01 | PDOC ---
PULMONARY PROGRESS NOTES DATE: 10/06/20 TIME: 11:00 Subjective Patient now on 8 L nasal cannula. is tired has occ cough sob better Vitals Vital Signs Date Time Temp Pulse Resp B/P (MAP) Pulse Ox O2 Delivery O2 Flow Rate FiO2 10/06/20 09:40 20 96 Nasal Cannula 8.0 10/06/20 07:00 96.9 84 138/81 (100) 96.9 Comments Visual exam done due to COVID-19 pneumonia. no distress nc at rrr No paradoxical breathing no respiratory distress no skin rash no leg edema Labs Laboratory Tests Test 10/05/20 03:40 10/06/20 05:55 White Blood Count 19.2 x10^3/uL (4.0-11.0) 21.2 x10^3/uL (4.0-11.0) Red Blood Count 4.01 x10^6/uL (3.50-5.40) 3.99 x10^6/uL (3.50-5.40) Hemoglobin 11.9 g/dL (12.0-15.5) 11.6 g/dL (12.0-15.5) Hematocrit 36.1 % (36.0-47.0) 36.0 % (36.0-47.0) Mean Corpuscular Volume 90 fL (79-100) 90 fL (79-100) Mean Corpuscular Hemoglobin 30 pg (25-35) 29 pg (25-35) Mean Corpuscular Hemoglobin Concent 33 g/dL (31-37) 32 g/dL (31-37) Red Cell Distribution Width 13.8 % (11.5-14.5) 13.5 % (11.5-14.5) Platelet Count 299 x10^3/uL (140-400) 368 x10^3/uL (140-400) Neutrophils (%) (Auto) 86 % (31-73) 85 % (31-73) Lymphocytes (%) (Auto) 9 % (24-48) 9 % (24-48) Monocytes (%) (Auto) 4 % (0-9) 5 % (0-9) Eosinophils (%) (Auto) 1 % (0-3) 0 % (0-3) Basophils (%) (Auto) 0 % (0-3) 0 % (0-3) Neutrophils # (Auto) 16.5 x10^3/uL (1.8-7.7) 18.0 x10^3/uL (1.8-7.7) Lymphocytes # (Auto) 1.7 x10^3/uL (1.0-4.8) 2.0 x10^3/uL (1.0-4.8) Monocytes # (Auto) 0.8 x10^3/uL (0.0-1.1) 1.1 x10^3/uL (0.0-1.1) Eosinophils # (Auto) 0.2 x10^3/uL (0.0-0.7) 0.0 x10^3/uL (0.0-0.7) Basophils # (Auto) 0.1 x10^3/uL (0.0-0.2) 0.1 x10^3/uL (0.0-0.2) Sodium Level 141 mmol/L (136-145) 140 mmol/L (136-145) Potassium Level 3.5 mmol/L (3.5-5.1) 3.2 mmol/L (3.5-5.1) Chloride Level 107 mmol/L (98-107) 107 mmol/L (98-107) Carbon Dioxide Level 25 mmol/L (21-32) 24 mmol/L (21-32) Anion Gap 9 (6-14) 9 (6-14) Blood Urea Nitrogen 31 mg/dL (7-20) 29 mg/dL (7-20) Creatinine 1.1 mg/dL (0.6-1.0) 0.9 mg/dL (0.6-1.0) Estimated GFR (Cockcroft-Gault) 65.3 82.3 BUN/Creatinine Ratio 28 (6-20) 32 (6-20) Glucose Level 97 mg/dL (70-99) 93 mg/dL (70-99) Calcium Level 8.3 mg/dL (8.5-10.1) 8.4 mg/dL (8.5-10.1) Total Bilirubin 0.4 mg/dL (0.2-1.0) 0.4 mg/dL (0.2-1.0) Aspartate Amino Transf (AST/SGOT) 21 U/L (15-37) 23 U/L (15-37) Alanine Aminotransferase (ALT/SGPT) 25 U/L (14-59) 22 U/L (14-59) Alkaline Phosphatase 417 U/L (46-116) 379 U/L (46-116) Total Protein 6.0 g/dL (6.4-8.2) 6.1 g/dL (6.4-8.2) Albumin 2.1 g/dL (3.4-5.0) 2.0 g/dL (3.4-5.0) Albumin/Globulin Ratio 0.5 (1.0-1.7) 0.5 (1.0-1.7) Segmented Neutrophils % 84 % (35-66) Band Neutrophils % 1 % (0-9) Lymphocytes % 10 % (24-48) Monocytes % 4 % (0-10) Myelocytes % 1 % (0-0) Platelet Estimate Adequate (ADEQUATE) Laboratory Tests Test 10/06/20 05:55 White Blood Count 21.2 x10^3/uL (4.0-11.0) Red Blood Count 3.99 x10^6/uL (3.50-5.40) Hemoglobin 11.6 g/dL (12.0-15.5) Hematocrit 36.0 % (36.0-47.0) Mean Corpuscular Volume 90 fL (79-100) Mean Corpuscular Hemoglobin 29 pg (25-35) Mean Corpuscular Hemoglobin Concent 32 g/dL (31-37) Red Cell Distribution Width 13.5 % (11.5-14.5) Platelet Count 368 x10^3/uL (140-400) Neutrophils (%) (Auto) 85 % (31-73) Lymphocytes (%) (Auto) 9 % (24-48) Monocytes (%) (Auto) 5 % (0-9) Eosinophils (%) (Auto) 0 % (0-3) Basophils (%) (Auto) 0 % (0-3) Neutrophils # (Auto) 18.0 x10^3/uL (1.8-7.7) Lymphocytes # (Auto) 2.0 x10^3/uL (1.0-4.8) Monocytes # (Auto) 1.1 x10^3/uL (0.0-1.1) Eosinophils # (Auto) 0.0 x10^3/uL (0.0-0.7) Basophils # (Auto) 0.1 x10^3/uL (0.0-0.2) Segmented Neutrophils % 84 % (35-66) Band Neutrophils % 1 % (0-9) Lymphocytes % 10 % (24-48) Monocytes % 4 % (0-10) Myelocytes % 1 % (0-0) Platelet Estimate Adequate (ADEQUATE) Sodium Level 140 mmol/L (136-145) Potassium Level 3.2 mmol/L (3.5-5.1) Chloride Level 107 mmol/L (98-107) Carbon Dioxide Level 24 mmol/L (21-32) Anion Gap 9 (6-14) Blood Urea Nitrogen 29 mg/dL (7-20) Creatinine 0.9 mg/dL (0.6-1.0) Estimated GFR (Cockcroft-Gault) 82.3 BUN/Creatinine Ratio 32 (6-20) Glucose Level 93 mg/dL (70-99) Calcium Level 8.4 mg/dL (8.5-10.1) Total Bilirubin 0.4 mg/dL (0.2-1.0) Aspartate Amino Transf (AST/SGOT) 23 U/L (15-37) Alanine Aminotransferase (ALT/SGPT) 22 U/L (14-59) Alkaline Phosphatase 379 U/L (46-116) Total Protein 6.1 g/dL (6.4-8.2) Albumin 2.0 g/dL (3.4-5.0) Albumin/Globulin Ratio 0.5 (1.0-1.7) Medications Active Scripts Medications Dose Route/Sig Max Daily Dose Days Date Category Cimetidine 200 Mg Tablet 1 Tab PO BID 09/30/20 Reported Femring (Estradiol Acetate) 1 Each Vag.ring 1 Ring VAG [id number] 09/30/20 Reported Naproxen 500 Mg Tablet 1 Tab PO BID 09/30/20 Reported Famotidine 40 Mg Tablet 1 Tab PO DAILY 09/30/20 Reported Sucralfate 1 Gm Tablet 1 Tab PO QID 09/30/20 Reported Progesterone (Progesterone,Micronized) 200 Mg Capsule 1 Cap PO QHS 09/30/20 Reported Ondansetron Odt (Ondansetron) 8 Mg Tab.rapdis 1 Tab PO PRN TID PRN 09/30/20 Reported Prochlorperazine Maleate 10 Mg Tablet 10 Mg PO PRN Q8HRS PRN 09/30/20 Reported Vitamin D2 (Ergocalciferol (Vitamin D2)) 1,250 Mcg Capsule 1 Cap PO TWICE WEEKLY 09/30/20 Reported Mycophenolate Mofetil 500 Mg Tablet 500 Mg PO BID 09/30/20 Reported Colestipol Hcl 1 Gm Tablet 1 Gm PO BID 09/13/19 Reported Escitalopram Oxalate 10 Mg Tablet 10 Mg PO DAILY 09/13/19 Reported Olanzapine 15 Mg Tablet 15 Mg PO QHS 09/13/19 Reported Promethazine Hcl 25 Mg Tablet 25 Mg PO PRN Q8HRS PRN 09/13/19 Reported Voltaren (Diclofenac Sodium) 100 Gm Gel..gram. 100 Gm TP DAILY 09/13/19 Reported Cyclobenzaprine Hcl 10 Mg Tablet 10 Mg PO TID 09/13/19 Reported Furosemide 20 Mg Tablet 20 Mg PO DAILY 09/13/19 Reported Prednisone 5 Mg Tablet 5 Mg PO DAILY 09/13/19 Reported Diphenhydramine Hcl 50 Mg Capsule 50 Mg PO PRN Q6HRS PRN 08/15/17 Reported Benzonatate 100 Mg Capsule 1 Cap PO PRN TID PRN 08/15/17 Reported Ursodiol 300 Mg Capsule 300 Mg PO QID 07/18/14 Reported Levothyroxine Sodium 50 Mcg Tablet 1 Tab PO DAILY 07/18/14 Reported Impression . 1. Acute hypoxic respiratory failure secondary to COVID-19 viral pneumonia, acute lung injury and early acute respiratory distress syndrome. 2. COVID-19 viral pneumonia in the patient who is not vaccinated and immunosuppressed. She is on CellCept and prednisone at home. 3. Abnormal liver function test, could be related to COVID. Not a candidate for tocilizumab. 4. Moderate protein-calorie malnutrition. 5. Nonsmoker. Plan . RECOMMENDATIONS: 1. titrate fio2 to keep saturations 90%. Oxygen requirement slowly improving IS to use multiple times an hour 2. Continue remdesivir. 3. steroid with dexa for 10 days ,wean to baseline home prednisone dose. 4. Empiric Zosyn and doxycycline was initiated to cover for any superimposed bacterial infection. 5. Continue current aggressive care and follow her respiratory status closely. 6. Stable respiratory status. Currently on 8 L. discussed w pt/rn. Will follow as needed. STEFAN STOCK MD Oct 06, 2020 11:01
[2020-10-06 14:16] VITALS: BP 134/82
--- NOTE | 2020-10-06 14:21 | NUR ---
SS following up with discharge planning. SS reviewed pt chart and discussed with pt RN. Pt is currently requiring oxygen at eight liters nasal canula. COVID19 positive. Pt on IV Doxycycline, IV Zosyn, PO Decadron, and PO Lasix. SS will continue to follow for discharge planning.
--- NOTE | 2020-10-06 14:30 | PDOC ---
[employer] PROGRESS NOTE Date of Service DOS: DATE: 10/06/20 TIME: 14:28 Chief Complaint Chief Complaint Acute respiratory failure with hypoxia COVID-19 pneumonia Autoimmune hepatitis History of Present Illness History of Present Illness Patient is a 45-year-old female transferred from [facility] overnight due to COVID-19 pneumonia. She presented to the outside hospital September 27 complaining of 2-day history of shortness of breath that was worsening. Per report from them she was diagnosed with Covid on September 24. Patient reported she was also having some nausea and decreased p.o. tolerance. On arrival to [facility] she was noted to have sinus tach and hypoxia requiring 6 L nasal cannula to bring her saturations into the 90s. She was started on steroids and Levaquin. At that point due to failure increasing respiratory status [facility] contacted for transfer to the ICU here. This was delayed due to bed availability but patient eventually arrived here September 29. When seen at this morning she was on 10 L nonrebreather. She does have a history of autoimmune hepatitis on home CellCept. We will hold this medication given positive Covid. Patient reported she has had to hold it in the past before without major issue. 10/01 Patient evaluated at bedside. She was on 10L NRB. Complaining of unilateral headache. Continued covid treatment. 10/02 Patient seen at bedside she was on 8 L nasal cannula. Does report her breathing feels somewhat better. No further headaches. Continue current Covid treatment. Wean O2 as tolerated. Remains on remdesivir and IV antibiotics. 10/03 Patient evaluated bedside on 8 L nasal cannula. Does report continued improved respiratory status. Complaining of some fatigue. Continue to wean O2 continue Covid treat minute. Possible discharge over the weekend. 10/06: Afebrile. Completed remdesivir. We will continue with empiric antibiotics and steroids, Decadron 10 mg twice daily. Continue steroids to complete a 10-day course (last day should be 10/10/2020). Continue to wean O2, currently breathing 8 L nasal cannula. Vitals/I&O Vitals/I&O: Vital Signs Date Time Temp Pulse Resp B/P (MAP) Pulse Ox O2 Delivery O2 Flow Rate FiO2 10/06/20 14:16 97.9 104 20 134/82 (99) 98 Nasal Cannula 8.0 97.9 I & O 10/05/20 10/05/20 10/06/20 15:00 23:00 07:00 Intake Total 350 ml 780 ml 0 ml Output Total 500 ml 750 ml Balance 350 ml 280 ml -750 ml Physical Exam General: Alert, Oriented X3, Cooperative, mild distress Heart: Regular rate, Normal S1, Normal S2 Lungs: Other (Increased work of breathing) Abdomen: Normal bowel sounds, Soft Extremities: No clubbing, No cyanosis, No edema, Normal pulses Skin: No breakdown, No significant lesion Labs Labs: Laboratory Tests Test 10/06/20 05:55 White Blood Count 21.2 x10^3/uL (4.0-11.0) Red Blood Count 3.99 x10^6/uL (3.50-5.40) Hemoglobin 11.6 g/dL (12.0-15.5) Hematocrit 36.0 % (36.0-47.0) Mean Corpuscular Volume 90 fL (79-100) Mean Corpuscular Hemoglobin 29 pg (25-35) Mean Corpuscular Hemoglobin Concent 32 g/dL (31-37) Red Cell Distribution Width 13.5 % (11.5-14.5) Platelet Count 368 x10^3/uL (140-400) Neutrophils (%) (Auto) 85 % (31-73) Lymphocytes (%) (Auto) 9 % (24-48) Monocytes (%) (Auto) 5 % (0-9) Eosinophils (%) (Auto) 0 % (0-3) Basophils (%) (Auto) 0 % (0-3) Neutrophils # (Auto) 18.0 x10^3/uL (1.8-7.7) Lymphocytes # (Auto) 2.0 x10^3/uL (1.0-4.8) Monocytes # (Auto) 1.1 x10^3/uL (0.0-1.1) Eosinophils # (Auto) 0.0 x10^3/uL (0.0-0.7) Basophils # (Auto) 0.1 x10^3/uL (0.0-0.2) Segmented Neutrophils % 84 % (35-66) Band Neutrophils % 1 % (0-9) Lymphocytes % 10 % (24-48) Monocytes % 4 % (0-10) Myelocytes % 1 % (0-0) Platelet Estimate Adequate (ADEQUATE) Sodium Level 140 mmol/L (136-145) Potassium Level 3.2 mmol/L (3.5-5.1) Chloride Level 107 mmol/L (98-107) Carbon Dioxide Level 24 mmol/L (21-32) Anion Gap 9 (6-14) Blood Urea Nitrogen 29 mg/dL (7-20) Creatinine 0.9 mg/dL (0.6-1.0) Estimated GFR (Cockcroft-Gault) 82.3 BUN/Creatinine Ratio 32 (6-20) Glucose Level 93 mg/dL (70-99) Calcium Level 8.4 mg/dL (8.5-10.1) Total Bilirubin 0.4 mg/dL (0.2-1.0) Aspartate Amino Transf (AST/SGOT) 23 U/L (15-37) Alanine Aminotransferase (ALT/SGPT) 22 U/L (14-59) Alkaline Phosphatase 379 U/L (46-116) Total Protein 6.1 g/dL (6.4-8.2) Albumin 2.0 g/dL (3.4-5.0) Albumin/Globulin Ratio 0.5 (1.0-1.7) Comment Review of Relevant I have reviewed the following items poli (where applicable) has been applied. Justifications for Admission Other Justification MITZY BLAIR MD Oct 06, 2020 14:30
[2020-10-06] MEDS: ENOXAPARIN 40 MG/0.4 ML SYRINGE. SQ SCH (16:35)
[2020-10-06] MEDS: traMADol 50 MG TABLET PO PRN ×2 (16:36→17:06)
[2020-10-06 19:00] VITALS: BP 138/68
[2020-10-06] MEDS: PROGESTERONE, MICRONIZED 100 MG CAPSULE PO SCH (20:48)
[2020-10-06] MEDS: OLANZapine 5 MG TABLET PO SCH (20:48)
[2020-10-06 23:00] VITALS: BP 127/70
[2020-10-07 02:52] VITALS: BP 130/67
[2020-10-07] MEDS: PIPERACILLIN/TAZOBACTAM 3.375 GM in IV NORMAL SALINE 50ML 50 ML IV SCH ×4 (05:45→23:24)
[2020-10-07 07:57] VITALS: BP 127/86
[2020-10-07] MEDS: DEXAMETHASONE 4 MG TABLET PO SCH (08:27)
[2020-10-07] MEDS: CITALOPRAM 20 MG TABLET. PO SCH (08:27)
[2020-10-07] MEDS: FUROSEMIDE 20 MG TABLET PO SCH (08:27)
[2020-10-07] MEDS: FAMOTIDINE 20 MG TABLET. PO SCH (08:28)
[2020-10-07] MEDS: URSODIOL 300 MG CAPSULE. PO SCH ×4 (08:28→19:48)
[2020-10-07] MEDS: ASPIRIN ENTERIC COATED 81 MG TABLET.DR. PO SCH (08:28)
[2020-10-07] MEDS: COLESTIPOL HCL 1 GM TABLET PO SCH ×2 (08:28→19:49)
[2020-10-07] MEDS: MULTIVITAMIN with MINERAL TABLET. PO SCH (08:28)
[2020-10-07] MEDS: DOXYCYCLINE HYCLATE 100 MG in IV DEXTROSE 5% 100ML 100 ML IV SCH ×2 (08:30→19:48)
[2020-10-07] MEDS: CYCLOBENZAPRINE 10 MG TABLET. PO SCH ×3 (08:31→19:48)
[2020-10-07] MEDS: OXYMETAZOLINE 0.05% NASAL SPRAY 30ML BOTTLE. NS SCH ×2 (09:00→19:47)
[2020-10-07 11:00] VITALS: BP 135/91
[2020-10-07] MEDS: traMADol 50 MG TABLET PO PRN (12:22)
--- NOTE | 2020-10-07 13:29 | PDOC ---
[employer] PROGRESS NOTE Date of Service DOS: DATE: 10/07/20 TIME: 13:25 Chief Complaint Chief Complaint Acute respiratory failure with hypoxia COVID-19 pneumonia Autoimmune hepatitis History of Present Illness History of Present Illness Patient is a 45-year-old female transferred from [facility] overnight due to COVID-19 pneumonia. She presented to the outside hospital September 27 complaining of 2-day history of shortness of breath that was worsening. Per report from them she was diagnosed with Covid on September 24. Patient reported she was also having some nausea and decreased p.o. tolerance. On arrival to [facility] she was noted to have sinus tach and hypoxia requiring 6 L nasal cannula to bring her saturations into the 90s. She was started on steroids and Levaquin. At that point due to failure increasing respiratory status [facility] contacted for transfer to the ICU here. This was delayed due to bed availability but patient eventually arrived here September 29. When seen at this morning she was on 10 L nonrebreather. She does have a history of autoimmune hepatitis on home CellCept. We will hold this medication given positive Covid. Patient reported she has had to hold it in the past before without major issue. 10/01 Patient evaluated at bedside. She was on 10L NRB. Complaining of unilateral headache. Continued covid treatment. 10/02 Patient seen at bedside she was on 8 L nasal cannula. Does report her breathing feels somewhat better. No further headaches. Continue current Covid treatment. Wean O2 as tolerated. Remains on remdesivir and IV antibiotics. 10/03 Patient evaluated bedside on 8 L nasal cannula. Does report continued improved respiratory status. Complaining of some fatigue. Continue to wean O2 continue Covid treat minute. Possible discharge over the weekend. 10/06: Afebrile. Completed remdesivir. We will continue with empiric antibiotics and steroids, Decadron 10 mg twice daily. Continue steroids to complete a 10-day course (last day should be 10/10/2020). Continue to wean O2, currently breathing 8 L nasal cannula. 10/07: Afebrile, currently on 8 L nasal cannula. Finished remdesivir. Decrease Decadron to 10 mg daily and continue to wean to her home regular prednisone dosage. She will completed 10 days of IV Decadron on 10/10/2020, at which time we can resume her on her regular prednisone if oxygen requirement tolerates. Vitals/I&O Vitals/I&O: Vital Signs Date Time Temp Pulse Resp B/P (MAP) Pulse Ox O2 Delivery O2 Flow Rate FiO2 10/07/20 12:52 18 10/07/20 11:00 96.8 88 135/91 (106) 97 Nasal Cannula 6.0 96.8 I & O 10/06/20 10/06/20 10/07/20 15:00 23:00 07:00 Intake Total 600 ml 515 ml 150 ml Output Total 600 ml 280 ml Balance 0 ml 235 ml 150 ml Physical Exam General: Alert, Oriented X3, Cooperative, mild distress Heart: Regular rate, Normal S1, Normal S2 Lungs: Other (Increased work of breathing) Abdomen: Normal bowel sounds, Soft Extremities: No clubbing, No cyanosis, No edema, Normal pulses Skin: No breakdown, No significant lesion Comment Review of Relevant I have reviewed the following items poli (where applicable) has been applied. Medications: Current Medications Medications (Trade) Dose Ordered Sig/Olegario Route PRN Reason Start Time Stop Time Status Last Admin Dose Admin Tramadol HCl (Ultram) 50 mg PRN Q6HRS PRN PO MILD PAIN 1-3 10/06/20 16:30 10/07/20 12:22 Justifications for Admission Other Justification MITZY BLAIR MD Oct 07, 2020 13:29
[2020-10-07] MEDS: ENOXAPARIN 40 MG/0.4 ML SYRINGE. SQ SCH (14:18)
[2020-10-07 15:00] VITALS: BP 152/99
[2020-10-07 19:48] VITALS: BP 174/95
[2020-10-07] MEDS: OLANZapine 5 MG TABLET PO SCH (19:49)
[2020-10-07] MEDS: PROGESTERONE, MICRONIZED 100 MG CAPSULE PO SCH (19:49)
[2020-10-07] MEDS: HYDROcodone/APAP 5/325MG 1 TAB TABLET PO PRN (20:19)
[2020-10-07 22:08] VITALS: BP 130/87
--- NOTE | 2020-10-07 23:53 | NUR ---
Melgar catheter taken out at 1500. Patient has not voided up until now. Patient was incontinent of urine at this time. Soaking the [place] pad and sheets requiring full linen change.
[2020-10-08 02:50] VITALS: BP 140/78
[2020-10-08] MEDS: PIPERACILLIN/TAZOBACTAM 3.375 GM in IV NORMAL SALINE 50ML 50 ML IV SCH ×4 (05:18→23:55)
[2020-10-08] MEDS: LEVOTHYROXINE 50 MCG TABLET PO SCH (05:59)
[2020-10-08 06:20] VITALS: BP 116/73
[2020-10-08 08:19] LABS: BASO # 0.1 x10^3/uL (0.0-0.2); BASO % 1 % (0-3); EOS % 0 % (0-3); HEMATOCRIT 36.6 % (36.0-47.0); HEMOGLOBIN 12.1 g/dL (12.0-15.5); LYMPH # 4.8 x10^3/uL (1.0-4.8); LYMPH % 19 % (24-48); MEAN CORPUSCULAR HEMOGLOBIN 29 pg (25-35); MEAN CORPUSCULAR HGB CONC 33 g/dL (31-37); MEAN CORPUSCULAR VOLUME 89 fL (79-100); MONO # 1.7 x10^3/uL (0.0-1.1); MONO % 7 % (0-9); NEUT # 18.5 x10^3/uL (1.8-7.7); NEUT % 74 % (31-73); PLATELET COUNT 389 x10^3/uL (140-400); RED BLOOD COUNT 4.11 x10^6/uL (3.50-5.40); RED CELL DISTRIBUTION WIDTH 13.6 % (11.5-14.5); WHITE BLOOD COUNT 25.2 x10^3/uL (4.0-11.0)
[2020-10-08] MEDS: DOXYCYCLINE HYCLATE 100 MG in IV DEXTROSE 5% 100ML 100 ML IV SCH ×2 (08:39→20:14)
[2020-10-08] MEDS: DEXAMETHASONE 4 MG TABLET PO SCH (08:40)
[2020-10-08] MEDS: FAMOTIDINE 20 MG TABLET. PO SCH (08:40)
[2020-10-08 08:41] LABS: C-REACTIVE PROTEIN 6.2 mg/L (0-3.3); CALCIUM 8.2 mg/dL (8.5-10.1); GFR 72.9
[2020-10-08] MEDS: URSODIOL 300 MG CAPSULE. PO SCH ×4 (08:41→20:08)
[2020-10-08] MEDS: MULTIVITAMIN with MINERAL TABLET. PO SCH (08:41)
[2020-10-08] MEDS: ASPIRIN ENTERIC COATED 81 MG TABLET.DR. PO SCH (08:41)
[2020-10-08] MEDS: CYCLOBENZAPRINE 10 MG TABLET. PO SCH ×3 (08:41→20:08)
[2020-10-08] MEDS: CITALOPRAM 20 MG TABLET. PO SCH (08:41)
[2020-10-08 08:44] LABS: POTASSIUM 2.6 mmol/L (3.5-5.1)
[2020-10-08] MEDS: OXYMETAZOLINE 0.05% NASAL SPRAY 30ML BOTTLE. NS SCH ×2 (09:00→20:13)
[2020-10-08] MEDS: FUROSEMIDE 20 MG TABLET PO SCH (09:00)
[2020-10-08] MEDS ORDERED: POTASSIUM BICARB 20 MEQ EFFERVESCENT TABLET. PO ONE ×2 (10:00→17:00)
[2020-10-08] MEDS: COLESTIPOL HCL 1 GM TABLET PO SCH ×2 (10:31→20:08)
[2020-10-08 11:46] VITALS: BP 109/70
--- NOTE | 2020-10-08 12:52 | PDOC ---
[employer] PROGRESS NOTE Date of Service DOS: DATE: 10/08/20 TIME: 12:48 Chief Complaint Chief Complaint Acute respiratory failure with hypoxia COVID-19 pneumonia Autoimmune hepatitis History of Present Illness History of Present Illness Patient is a 45-year-old female transferred from [facility] overnight due to COVID-19 pneumonia. She presented to the outside hospital September 27 complaining of 2-day history of shortness of breath that was worsening. Per report from them she was diagnosed with Covid on September 24. Patient reported she was also having some nausea and decreased p.o. tolerance. On arrival to [facility] she was noted to have sinus tach and hypoxia requiring 6 L nasal cannula to bring her saturations into the 90s. She was started on steroids and Levaquin. At that point due to failure increasing respiratory status [facility] contacted for transfer to the ICU here. This was delayed due to bed availability but patient eventually arrived here September 29. When seen at this morning she was on 10 L nonrebreather. She does have a history of autoimmune hepatitis on home CellCept. We will hold this medication given positive Covid. Patient reported she has had to hold it in the past before without major issue. 10/01 Patient evaluated at bedside. She was on 10L NRB. Complaining of unilateral headache. Continued covid treatment. 10/02 Patient seen at bedside she was on 8 L nasal cannula. Does report her breathing feels somewhat better. No further headaches. Continue current Covid treatment. Wean O2 as tolerated. Remains on remdesivir and IV antibiotics. 10/03 Patient evaluated bedside on 8 L nasal cannula. Does report continued improved respiratory status. Complaining of some fatigue. Continue to wean O2 continue Covid treat minute. Possible discharge over the weekend. 10/06: Afebrile. Completed remdesivir. We will continue with empiric antibiotics and steroids, Decadron 10 mg twice daily. Continue steroids to complete a 10-day course (last day should be 10/10/2020). Continue to wean O2, currently breathing 8 L nasal cannula. 10/07: Afebrile, currently on 8 L nasal cannula. Finished remdesivir. Decrease Decadron to 10 mg daily and continue to wean to her home regular prednisone dosage. She will completed 10 days of IV Decadron on 10/10/2020, at which time we can resume her on her regular prednisone if oxygen requirement tolerates. 10/08: Afebrile. Completed remdesivir. Still breathing on 8 L nasal cannula. We will continue IV steroids. We will continue to wean oxygen and steroid requirement. Patient states she feels neglected by nursing staff waiting to help her to the restroom. States she had an accident herself this morning. She is requesting Melgar catheter; discussed with RN, recommended Loc. Vitals/I&O Vitals/I&O: Vital Signs Date Time Temp Pulse Resp B/P (MAP) Pulse Ox O2 Delivery O2 Flow Rate FiO2 10/08/20 11:46 98.0 100 18 109/70 (83) 94 Nasal Cannula 8.0 98.0 I & O 10/07/20 10/07/20 10/08/20 15:00 23:00 07:00 Intake Total 500 ml 360 ml 300 ml Balance 500 ml 360 ml 300 ml Physical Exam General: Alert, Oriented X3, Cooperative, mild distress Heart: Regular rate, Normal S1, Normal S2 Lungs: Other (Increased work of breathing) Abdomen: Normal bowel sounds, Soft Extremities: No clubbing, No cyanosis, No edema, Normal pulses Skin: No breakdown, No significant lesion Labs Labs: Laboratory Tests Test 10/08/20 07:50 White Blood Count 25.2 x10^3/uL (4.0-11.0) Red Blood Count 4.11 x10^6/uL (3.50-5.40) Hemoglobin 12.1 g/dL (12.0-15.5) Hematocrit 36.6 % (36.0-47.0) Mean Corpuscular Volume 89 fL (79-100) Mean Corpuscular Hemoglobin 29 pg (25-35) Mean Corpuscular Hemoglobin Concent 33 g/dL (31-37) Red Cell Distribution Width 13.6 % (11.5-14.5) Platelet Count 389 x10^3/uL (140-400) Neutrophils (%) (Auto) 74 % (31-73) Lymphocytes (%) (Auto) 19 % (24-48) Monocytes (%) (Auto) 7 % (0-9) Eosinophils (%) (Auto) 0 % (0-3) Basophils (%) (Auto) 1 % (0-3) Neutrophils # (Auto) 18.5 x10^3/uL (1.8-7.7) Lymphocytes # (Auto) 4.8 x10^3/uL (1.0-4.8) Monocytes # (Auto) 1.7 x10^3/uL (0.0-1.1) Eosinophils # (Auto) 0.0 x10^3/uL (0.0-0.7) Basophils # (Auto) 0.1 x10^3/uL (0.0-0.2) Sodium Level 142 mmol/L (136-145) Potassium Level 2.6 mmol/L (3.5-5.1) Chloride Level 108 mmol/L (98-107) Carbon Dioxide Level 23 mmol/L (21-32) Anion Gap 11 (6-14) Blood Urea Nitrogen 28 mg/dL (7-20) Creatinine 1.0 mg/dL (0.6-1.0) Estimated GFR (Cockcroft-Gault) 72.9 Glucose Level 71 mg/dL (70-99) Calcium Level 8.2 mg/dL (8.5-10.1) C-Reactive Protein, Quantitative 6.2 mg/L (0-3.3) Comment Review of Relevant I have reviewed the following items poli (where applicable) has been applied. Medications: Current Medications Medications (Trade) Dose Ordered Sig/Olegario Route PRN Reason Start Time Stop Time Status Last Admin Dose Admin Dexamethasone (Decadron) 10 mg DAILY PO 10/08/20 09:00 10/08/20 08:40 Potassium Bicarbonate (Potassium Effervescent Tablet) 40 meq 1X ONCE PO 10/08/20 10:00 10/08/20 10:01 DC 10/08/20 10:32 Justifications for Admission Other Justification MITZY BLAIR MD Oct 08, 2020 12:52
--- NOTE | 2020-10-08 13:48 | NUR ---
SS following up with discharge planning. SS reviewed pt chart and discussed with pt RN. Pt is currently requiring oxygen at eight liters nasal canula. COVID19 positive. Pt on IV Doxycycline, IV Zosyn, PO Decadron, and PO Lasix. Potassium replaced today. SS will continue to follow for discharge planning.
[2020-10-08] MEDS: ENOXAPARIN 40 MG/0.4 ML SYRINGE. SQ SCH (15:53)
[2020-10-08] MEDS: HYDROcodone/APAP 5/325MG 1 TAB TABLET PO PRN ×2 (16:01→20:25)
[2020-10-08] MEDS ORDERED: POTASSIUM CHLORIDE 20 MEQ TABLET.ER. PO ONE (17:00)
[2020-10-08 19:00] VITALS: BP 130/89
[2020-10-08] MEDS: PROGESTERONE, MICRONIZED 100 MG CAPSULE PO SCH (20:08)
[2020-10-08] MEDS: OLANZapine 5 MG TABLET PO SCH (20:08)
[2020-10-08 22:47] VITALS: BP 113/64
[2020-10-09] MEDS: HYDROcodone/APAP 5/325MG 1 TAB TABLET PO PRN ×3 (02:47→18:02)
[2020-10-09 03:00] VITALS: BP 120/81
[2020-10-09] MEDS: PIPERACILLIN/TAZOBACTAM 3.375 GM in IV NORMAL SALINE 50ML 50 ML IV SCH ×4 (05:14→23:23)
[2020-10-09] MEDS: LEVOTHYROXINE 50 MCG TABLET PO SCH (05:15)
[2020-10-09 07:00] VITALS: BP 120/84
--- NOTE | 2020-10-09 09:34 | PDOC ---
PULMONARY PROGRESS NOTES DATE: 10/09/20 TIME: 09:33 Subjective Patient now on 8 L nasal cannula. is tired has occ cough sob better Vitals Vital Signs Date Time Temp Pulse Resp B/P (MAP) Pulse Ox O2 Delivery O2 Flow Rate FiO2 10/09/20 07:00 97.8 103 18 120/84 (96) 90 Nasal Cannula 8.0 97.8 Comments Visual exam done due to COVID-19 pneumonia. no distress nc at rrr No paradoxical breathing no respiratory distress no skin rash no leg edema Labs Laboratory Tests Test 10/08/20 07:50 White Blood Count 25.2 x10^3/uL (4.0-11.0) Red Blood Count 4.11 x10^6/uL (3.50-5.40) Hemoglobin 12.1 g/dL (12.0-15.5) Hematocrit 36.6 % (36.0-47.0) Mean Corpuscular Volume 89 fL (79-100) Mean Corpuscular Hemoglobin 29 pg (25-35) Mean Corpuscular Hemoglobin Concent 33 g/dL (31-37) Red Cell Distribution Width 13.6 % (11.5-14.5) Platelet Count 389 x10^3/uL (140-400) Neutrophils (%) (Auto) 74 % (31-73) Lymphocytes (%) (Auto) 19 % (24-48) Monocytes (%) (Auto) 7 % (0-9) Eosinophils (%) (Auto) 0 % (0-3) Basophils (%) (Auto) 1 % (0-3) Neutrophils # (Auto) 18.5 x10^3/uL (1.8-7.7) Lymphocytes # (Auto) 4.8 x10^3/uL (1.0-4.8) Monocytes # (Auto) 1.7 x10^3/uL (0.0-1.1) Eosinophils # (Auto) 0.0 x10^3/uL (0.0-0.7) Basophils # (Auto) 0.1 x10^3/uL (0.0-0.2) Sodium Level 142 mmol/L (136-145) Potassium Level 2.6 mmol/L (3.5-5.1) Chloride Level 108 mmol/L (98-107) Carbon Dioxide Level 23 mmol/L (21-32) Anion Gap 11 (6-14) Blood Urea Nitrogen 28 mg/dL (7-20) Creatinine 1.0 mg/dL (0.6-1.0) Estimated GFR (Cockcroft-Gault) 72.9 Glucose Level 71 mg/dL (70-99) Calcium Level 8.2 mg/dL (8.5-10.1) C-Reactive Protein, Quantitative 6.2 mg/L (0-3.3) Medications Active Scripts Medications Dose Route/Sig Max Daily Dose Days Date Category Cimetidine 200 Mg Tablet 1 Tab PO BID 09/30/20 Reported Femring (Estradiol Acetate) 1 Each Vag.ring 1 Ring VAG [id number] 09/30/20 Reported Naproxen 500 Mg Tablet 1 Tab PO BID 09/30/20 Reported Famotidine 40 Mg Tablet 1 Tab PO DAILY 09/30/20 Reported Sucralfate 1 Gm Tablet 1 Tab PO QID 09/30/20 Reported Progesterone (Progesterone,Micronized) 200 Mg Capsule 1 Cap PO QHS 09/30/20 Reported Ondansetron Odt (Ondansetron) 8 Mg Tab.rapdis 1 Tab PO PRN TID PRN 09/30/20 Reported Prochlorperazine Maleate 10 Mg Tablet 10 Mg PO PRN Q8HRS PRN 09/30/20 Reported Vitamin D2 (Ergocalciferol (Vitamin D2)) 1,250 Mcg Capsule 1 Cap PO TWICE WEEKLY 09/30/20 Reported Mycophenolate Mofetil 500 Mg Tablet 500 Mg PO BID 09/30/20 Reported Colestipol Hcl 1 Gm Tablet 1 Gm PO BID 09/13/19 Reported Escitalopram Oxalate 10 Mg Tablet 10 Mg PO DAILY 09/13/19 Reported Olanzapine 15 Mg Tablet 15 Mg PO QHS 09/13/19 Reported Promethazine Hcl 25 Mg Tablet 25 Mg PO PRN Q8HRS PRN 09/13/19 Reported Voltaren (Diclofenac Sodium) 100 Gm Gel..gram. 100 Gm TP DAILY 09/13/19 Reported Cyclobenzaprine Hcl 10 Mg Tablet 10 Mg PO TID 09/13/19 Reported Furosemide 20 Mg Tablet 20 Mg PO DAILY 09/13/19 Reported Prednisone 5 Mg Tablet 5 Mg PO DAILY 09/13/19 Reported Diphenhydramine Hcl 50 Mg Capsule 50 Mg PO PRN Q6HRS PRN 08/15/17 Reported Benzonatate 100 Mg Capsule 1 Cap PO PRN TID PRN 08/15/17 Reported Ursodiol 300 Mg Capsule 300 Mg PO QID 07/18/14 Reported Levothyroxine Sodium 50 Mcg Tablet 1 Tab PO DAILY 07/18/14 Reported Impression . 1. Acute hypoxic respiratory failure secondary to COVID-19 viral pneumonia, acute lung injury and early acute respiratory distress syndrome. 2. COVID-19 viral pneumonia in the patient who is not vaccinated and immunosuppressed. She is on CellCept and prednisone at home. 3. Abnormal liver function test, could be related to COVID. Not a candidate for tocilizumab. 4. Moderate protein-calorie malnutrition. 5. Nonsmoker. Plan . RECOMMENDATIONS: 1. titrate fio2 to keep saturations 90%. Oxygen requirement marginal. Remains on 8 L nasal cannula. 2. Continue remdesivir. 3. steroid with dexa for 10 days ,wean to baseline home prednisone dose. 4. Empiric Zosyn and doxycycline was initiated to cover for any superimposed bacterial infection. 5. Continue current aggressive care and follow her respiratory status closely. 6. Stable respiratory status. Currently on 8 L. 7. Repeat chest x-ray. STEFAN STOCK MD Oct 09, 2020 09:34
[2020-10-09] MEDS: MULTIVITAMIN with MINERAL TABLET. PO SCH (10:04)
[2020-10-09] MEDS: FAMOTIDINE 20 MG TABLET. PO SCH (10:04)
[2020-10-09] MEDS: BENZONATATE 100 MG CAPSULE. PO PRN (10:04)
[2020-10-09] MEDS: CYCLOBENZAPRINE 10 MG TABLET. PO SCH ×3 (10:04→21:18)
[2020-10-09] MEDS: FUROSEMIDE 20 MG TABLET PO SCH (10:05)
[2020-10-09] MEDS: CITALOPRAM 20 MG TABLET. PO SCH (10:05)
[2020-10-09] MEDS: DEXAMETHASONE 4 MG TABLET PO SCH (10:05)
[2020-10-09] MEDS: COLESTIPOL HCL 1 GM TABLET PO SCH ×3 (10:06→22:00)
[2020-10-09] MEDS: ASPIRIN ENTERIC COATED 81 MG TABLET.DR. PO SCH (10:07)
[2020-10-09] MEDS: DOXYCYCLINE HYCLATE 100 MG in IV DEXTROSE 5% 100ML 100 ML IV SCH ×2 (10:07→21:21)
[2020-10-09] MEDS: OXYMETAZOLINE 0.05% NASAL SPRAY 30ML BOTTLE. NS SCH ×2 (10:09→21:00)
[2020-10-09] MEDS: URSODIOL 300 MG CAPSULE. PO SCH ×4 (10:26→21:18)
[2020-10-09 10:29] LABS: BASO % 0 % (0-3); EOS # 0.1 x10^3/uL (0.0-0.7); EOS % 1 % (0-3); HEMATOCRIT 35.3 % (36.0-47.0); HEMOGLOBIN 11.5 g/dL (12.0-15.5); LYMPH # 4.8 x10^3/uL (1.0-4.8); LYMPH % 19 % (24-48); MEAN CORPUSCULAR HEMOGLOBIN 29 pg (25-35); MEAN CORPUSCULAR HGB CONC 33 g/dL (31-37); MEAN CORPUSCULAR VOLUME 90 fL (79-100); MONO # 1.8 x10^3/uL (0.0-1.1); MONO % 7 % (0-9); NEUT # 18.3 x10^3/uL (1.8-7.7); NEUT % 73 % (31-73); PLATELET COUNT 338 x10^3/uL (140-400); RED BLOOD COUNT 3.93 x10^6/uL (3.50-5.40); RED CELL DISTRIBUTION WIDTH 13.9 % (11.5-14.5); WHITE BLOOD COUNT 25.1 x10^3/uL (4.0-11.0)
[2020-10-09 10:47] VITALS: BP 98/78
[2020-10-09 10:52] LABS: CALCIUM 7.9 mg/dL (8.5-10.1); CREATININE 0.9 mg/dL (0.6-1.0); GFR 82.3
[2020-10-09 10:56] LABS: POTASSIUM 2.4 mmol/L (3.5-5.1)
--- NOTE | 2020-10-09 11:19 | RAD ---
EXAM: Chest, single view. HISTORY: Covid 19. COMPARISON: 09/27/2020 FINDINGS: A frontal view of the chest is obtained. There is multifocal peripheral predominant interst itial and alveolar infiltrate. There is partial bilateral lower lobe consolidation. There is cardiome daniel. There is no pneumothorax or pleural effusion. IMPRESSION: Diffuse peripheral predominant interstitial and alveolar infiltrate in partial bilateral lower lobe consolidation, similar compared to the prior CT dated 09/27/2020, allowing for differences in imaging modality. Follow-up to confirm resolution. Electronically signed by: Danyell Mehta MD (10/09/2020 11:17 AM) [id number]
[2020-10-09] MEDS ORDERED: POTASSIUM CHLORIDE 20 MEQ TABLET.ER. PO ONE ×2 (12:00→21:00)
--- NOTE | 2020-10-09 13:22 | PDOC ---
[employer] PROGRESS NOTE Date of Service DOS: DATE: 10/09/20 TIME: 12:42 Chief Complaint Chief Complaint Acute respiratory failure with hypoxia COVID-19 pneumonia Autoimmune hepatitis Migraines History of Present Illness History of Present Illness Patient is a 45-year-old female transferred from [facility] overnight due to COVID-19 pneumonia. She presented to the outside hospital September 27 complaining of 2-day history of shortness of breath that was worsening. Per report from them she was diagnosed with Covid on September 24. Patient reported she was also having some nausea and decreased p.o. tolerance. On arrival to [facility] she was noted to have sinus tach and hypoxia requiring 6 L nasal cannula to bring her saturations into the 90s. She was started on steroids and Levaquin. At that point due to failure increasing respiratory status [facility] contacted for transfer to the ICU here. This was delayed due to bed availability but patient eventually arrived here September 29. 09/30: When seen at this morning she was on 10 L nonrebreather. She does have a history of autoimmune hepatitis on home CellCept. We will hold this medication given positive Covid. Patient reported she has had to hold it in the past before without major issue. 10/01: Patient evaluated at bedside. She was on 10L NRB. Complaining of unilateral headache. Continued covid treatment. 10/02: Patient seen at bedside she was on 8 L nasal cannula. Does report her breathing feels somewhat better. No further headaches. Continue current Covid treatment. Wean O2 as tolerated. Remains on remdesivir and IV antibiotics. 10/03: Patient evaluated bedside on 8 L nasal cannula. Does report continued improved respiratory status. Complaining of some fatigue. Continue to wean O2 continue Covid treat minute. Possible discharge over the weekend. 10/06: Afebrile. Completed remdesivir. We will continue with empiric antibiotics and steroids, Decadron 10 mg twice daily. Continue steroids to complete a 10-day course (last day should be 10/10/2020). Continue to wean O2, currently breathing 8 L nasal cannula. 10/07: Afebrile, currently on 8 L nasal cannula. Finished remdesivir. Decrease Decadron to 10 mg daily and continue to wean to her home regular prednisone dosage. She will completed 10 days of IV Decadron on 10/10/2020, at which time we can resume her on her regular prednisone if oxygen requirement tolerates. 10/08: Afebrile. Completed remdesivir. Still breathing on 8 L nasal cannula. We will continue IV steroids. We will continue to wean oxygen and steroid requirement. Patient states she feels neglected by nursing staff waiting to help her to the restroom. States she had an accident herself this morning. She is requesting Melgar catheter; discussed with RN, recommended Loc. 10/09: Patient seen and examined. Patient in no acute distress. Patient still on 8L O2 per nasal cannula. She is receiving COVID-19 Protocol (steroid, antitussive, multivitamin, zoysn, doxycycline, aspirin). Discussed with RN. Chart reviewed. Potassium was low (2.6) on 10/08 and patient was given one dose of potassium supplement, however, potassium continued to trend low (2.4) today therefore we plan to start daily potassium supplement. Vitals/I&O Vitals/I&O: Vital Signs Date Time Temp Pulse Resp B/P (MAP) Pulse Ox O2 Delivery O2 Flow Rate FiO2 10/09/20 10:47 96.7 110 22 98/78 (85) 90 Nasal Cannula 8.0 96.7 I & O 10/08/20 10/08/20 10/09/20 15:00 23:00 07:00 Intake Total 300 ml 150 ml 470 ml Output Total 1100 ml Balance 300 ml 150 ml -630 ml Physical Exam General: Alert, Oriented X3, Cooperative, No acute distress Heart: Regular rate, Normal S1, Normal S2 Abdomen: Normal bowel sounds, Soft Extremities: No clubbing, No cyanosis, No edema, Normal pulses Skin: No breakdown, No significant lesion Labs Labs: Laboratory Tests Test 10/09/20 10:00 White Blood Count 25.1 x10^3/uL (4.0-11.0) Red Blood Count 3.93 x10^6/uL (3.50-5.40) Hemoglobin 11.5 g/dL (12.0-15.5) Hematocrit 35.3 % (36.0-47.0) Mean Corpuscular Volume 90 fL (79-100) Mean Corpuscular Hemoglobin 29 pg (25-35) Mean Corpuscular Hemoglobin Concent 33 g/dL (31-37) Red Cell Distribution Width 13.9 % (11.5-14.5) Platelet Count 338 x10^3/uL (140-400) Neutrophils (%) (Auto) 73 % (31-73) Lymphocytes (%) (Auto) 19 % (24-48) Monocytes (%) (Auto) 7 % (0-9) Eosinophils (%) (Auto) 1 % (0-3) Basophils (%) (Auto) 0 % (0-3) Neutrophils # (Auto) 18.3 x10^3/uL (1.8-7.7) Lymphocytes # (Auto) 4.8 x10^3/uL (1.0-4.8) Monocytes # (Auto) 1.8 x10^3/uL (0.0-1.1) Eosinophils # (Auto) 0.1 x10^3/uL (0.0-0.7) Basophils # (Auto) 0.0 x10^3/uL (0.0-0.2) Sodium Level 141 mmol/L (136-145) Potassium Level 2.4 mmol/L (3.5-5.1) Chloride Level 109 mmol/L (98-107) Carbon Dioxide Level 18 mmol/L (21-32) Anion Gap 14 (6-14) Blood Urea Nitrogen 23 mg/dL (7-20) Creatinine 0.9 mg/dL (0.6-1.0) Estimated GFR (Cockcroft-Gault) 82.3 Glucose Level 96 mg/dL (70-99) Calcium Level 7.9 mg/dL (8.5-10.1) C-Reactive Protein, Quantitative 48.0 mg/L (0-3.3) Review of Systems Review of Systems: Patient denies loss of vision or blurry vision. Assessment and Plan Assessmemt and Plan Assessment: Acute respiratory failure with hypoxia COVID-19 pneumonia Autoimmune hepatitis Migraines Plan: 1. Start daily potassium chloride 20meq (Potassium 2.4 on 10/09) -Patient given 40meq at noon on 10/08 and 10/09 2. Trend potassium level 3. Appreciate pulmonary consultation input -Repeat Chest X-Ray indicated 4. Continue COVID-19 Protocol (dexamethasone, antitussive, multivitamins, zosyn, doxycycline, aspirin, oxygen) - Remdesivir finished on 10/03 -Continue dexamethasone for 10 days (started on 09/30) then plan to wean to baseline home prednisone dose 5. Plan to discharge when O2 requirements reduce to 2L 6. Continue home meds 7. Trend labs 8. PT/OT 9. Encourage PO Intake 10. Continue DVT Prophylaxis (Lovenox) Comment Review of Relevant I have reviewed the following items poli (where applicable) has been applied. Medications: Current Medications Medications (Trade) Dose Ordered Sig/Olegario Route PRN Reason Start Time Stop Time Status Last Admin Dose Admin Potassium Chloride (Klor-Con) 40 meq 1X ONCE PO 10/08/20 17:00 10/08/20 17:01 DC 10/08/20 17:50 Justifications for Admission Other Justification JANENE HAMILTON III DO Oct 09, 2020 13:22
[2020-10-09 15:00] VITALS: BP 123/79
--- NOTE | 2020-10-09 15:08 | NUR ---
SS following up with discharge planning. SS reviewed pt chart and discussed with pt RN. Pt is currently requiring oxygen at eight liters nasal canula. COVID19 positive. Pt on IV Doxycycline, IV Zosyn, PO Decadron, and PO Lasix. Pt has no home oxygen and will need six minute walk when medically ready for discharge. SS will continue to follow for discharge planning.
[2020-10-09] MEDS: ENOXAPARIN 40 MG/0.4 ML SYRINGE. SQ SCH (17:56)
[2020-10-09 19:00] VITALS: BP 112/92
[2020-10-09] MEDS: PROGESTERONE, MICRONIZED 100 MG CAPSULE PO SCH (21:18)
[2020-10-09] MEDS: OLANZapine 5 MG TABLET PO SCH (21:19)
[2020-10-09 23:00] VITALS: BP 98/70
[2020-10-10 03:00] VITALS: BP 109/70
[2020-10-10] MEDS: LEVOTHYROXINE 50 MCG TABLET PO SCH (06:04)
[2020-10-10] MEDS: PIPERACILLIN/TAZOBACTAM 3.375 GM in IV NORMAL SALINE 50ML 50 ML IV SCH ×3 (06:05→18:19)
[2020-10-10 07:00] VITALS: BP 125/90
--- NOTE | 2020-10-10 07:59 | PDOC ---
PULMONARY PROGRESS NOTES DATE: 10/10/20 TIME: 07:59 Subjective Patient at times more short of air, agrees that some of it is anxiety Vitals Vital Signs Date Time Temp Pulse Resp B/P (MAP) Pulse Ox O2 Delivery O2 Flow Rate FiO2 10/10/20 03:00 97.8 97 16 109/70 (83) 98 Nasal Cannula 8.0 97.8 Comments Visual exam done due to COVID-19 pneumonia. no distress nc at rrr No paradoxical breathing no respiratory distress no skin rash no leg edema Labs Laboratory Tests Test 10/09/20 10:00 White Blood Count 25.1 x10^3/uL (4.0-11.0) Red Blood Count 3.93 x10^6/uL (3.50-5.40) Hemoglobin 11.5 g/dL (12.0-15.5) Hematocrit 35.3 % (36.0-47.0) Mean Corpuscular Volume 90 fL (79-100) Mean Corpuscular Hemoglobin 29 pg (25-35) Mean Corpuscular Hemoglobin Concent 33 g/dL (31-37) Red Cell Distribution Width 13.9 % (11.5-14.5) Platelet Count 338 x10^3/uL (140-400) Neutrophils (%) (Auto) 73 % (31-73) Lymphocytes (%) (Auto) 19 % (24-48) Monocytes (%) (Auto) 7 % (0-9) Eosinophils (%) (Auto) 1 % (0-3) Basophils (%) (Auto) 0 % (0-3) Neutrophils # (Auto) 18.3 x10^3/uL (1.8-7.7) Lymphocytes # (Auto) 4.8 x10^3/uL (1.0-4.8) Monocytes # (Auto) 1.8 x10^3/uL (0.0-1.1) Eosinophils # (Auto) 0.1 x10^3/uL (0.0-0.7) Basophils # (Auto) 0.0 x10^3/uL (0.0-0.2) Sodium Level 141 mmol/L (136-145) Potassium Level 2.4 mmol/L (3.5-5.1) Chloride Level 109 mmol/L (98-107) Carbon Dioxide Level 18 mmol/L (21-32) Anion Gap 14 (6-14) Blood Urea Nitrogen 23 mg/dL (7-20) Creatinine 0.9 mg/dL (0.6-1.0) Estimated GFR (Cockcroft-Gault) 82.3 Glucose Level 96 mg/dL (70-99) Calcium Level 7.9 mg/dL (8.5-10.1) C-Reactive Protein, Quantitative 48.0 mg/L (0-3.3) Laboratory Tests Test 10/09/20 10:00 White Blood Count 25.1 x10^3/uL (4.0-11.0) Red Blood Count 3.93 x10^6/uL (3.50-5.40) Hemoglobin 11.5 g/dL (12.0-15.5) Hematocrit 35.3 % (36.0-47.0) Mean Corpuscular Volume 90 fL (79-100) Mean Corpuscular Hemoglobin 29 pg (25-35) Mean Corpuscular Hemoglobin Concent 33 g/dL (31-37) Red Cell Distribution Width 13.9 % (11.5-14.5) Platelet Count 338 x10^3/uL (140-400) Neutrophils (%) (Auto) 73 % (31-73) Lymphocytes (%) (Auto) 19 % (24-48) Monocytes (%) (Auto) 7 % (0-9) Eosinophils (%) (Auto) 1 % (0-3) Basophils (%) (Auto) 0 % (0-3) Neutrophils # (Auto) 18.3 x10^3/uL (1.8-7.7) Lymphocytes # (Auto) 4.8 x10^3/uL (1.0-4.8) Monocytes # (Auto) 1.8 x10^3/uL (0.0-1.1) Eosinophils # (Auto) 0.1 x10^3/uL (0.0-0.7) Basophils # (Auto) 0.0 x10^3/uL (0.0-0.2) Sodium Level 141 mmol/L (136-145) Potassium Level 2.4 mmol/L (3.5-5.1) Chloride Level 109 mmol/L (98-107) Carbon Dioxide Level 18 mmol/L (21-32) Anion Gap 14 (6-14) Blood Urea Nitrogen 23 mg/dL (7-20) Creatinine 0.9 mg/dL (0.6-1.0) Estimated GFR (Cockcroft-Gault) 82.3 Glucose Level 96 mg/dL (70-99) Calcium Level 7.9 mg/dL (8.5-10.1) C-Reactive Protein, Quantitative 48.0 mg/L (0-3.3) Medications Active Scripts Medications Dose Route/Sig Max Daily Dose Days Date Category Cimetidine 200 Mg Tablet 1 Tab PO BID 09/30/20 Reported Femring (Estradiol Acetate) 1 Each Vag.ring 1 Ring VAG [id number] 09/30/20 Reported Naproxen 500 Mg Tablet 1 Tab PO BID 09/30/20 Reported Famotidine 40 Mg Tablet 1 Tab PO DAILY 09/30/20 Reported Sucralfate 1 Gm Tablet 1 Tab PO QID 09/30/20 Reported Progesterone (Progesterone,Micronized) 200 Mg Capsule 1 Cap PO QHS 09/30/20 Reported Ondansetron Odt (Ondansetron) 8 Mg Tab.rapdis 1 Tab PO PRN TID PRN 09/30/20 Reported Prochlorperazine Maleate 10 Mg Tablet 10 Mg PO PRN Q8HRS PRN 09/30/20 Reported Vitamin D2 (Ergocalciferol (Vitamin D2)) 1,250 Mcg Capsule 1 Cap PO TWICE WEEKLY 09/30/20 Reported Mycophenolate Mofetil 500 Mg Tablet 500 Mg PO BID 09/30/20 Reported Colestipol Hcl 1 Gm Tablet 1 Gm PO BID 09/13/19 Reported Escitalopram Oxalate 10 Mg Tablet 10 Mg PO DAILY 09/13/19 Reported Olanzapine 15 Mg Tablet 15 Mg PO QHS 09/13/19 Reported Promethazine Hcl 25 Mg Tablet 25 Mg PO PRN Q8HRS PRN 09/13/19 Reported Voltaren (Diclofenac Sodium) 100 Gm Gel..gram. 100 Gm TP DAILY 09/13/19 Reported Cyclobenzaprine Hcl 10 Mg Tablet 10 Mg PO TID 09/13/19 Reported Furosemide 20 Mg Tablet 20 Mg PO DAILY 09/13/19 Reported Prednisone 5 Mg Tablet 5 Mg PO DAILY 09/13/19 Reported Diphenhydramine Hcl 50 Mg Capsule 50 Mg PO PRN Q6HRS PRN 08/15/17 Reported Benzonatate 100 Mg Capsule 1 Cap PO PRN TID PRN 08/15/17 Reported Ursodiol 300 Mg Capsule 300 Mg PO QID 07/18/14 Reported Levothyroxine Sodium 50 Mcg Tablet 1 Tab PO DAILY 07/18/14 Reported Impression . 1. Acute hypoxic respiratory failure secondary to COVID-19 viral pneumonia, acute lung injury and early acute respiratory distress syndrome. 2. COVID-19 viral pneumonia in the patient who is not vaccinated and immunosuppressed. She is on CellCept and prednisone at home. 3. Abnormal liver function test, could be related to COVID. Not a candidate for tocilizumab. 4. Moderate protein-calorie malnutrition. 5. Nonsmoker. 6. Nonspecific anxiety Chest x-ray reviewed from 10/09, compatible with Covid Plan . Updated 10/10 Continue oxygen supplementation increase as needed Discussed with RN anxiolytic as needed Continue steroids Monitor closely DVT GI prophylax RECOMMENDATIONS: 1. titrate fio2 to keep saturations 90%. Oxygen requirement marginal. Remains on 8 L nasal cannula. 2. Continue remdesivir. 3. steroid with dexa for 10 days ,wean to baseline home prednisone dose. 4. Empiric Zosyn and doxycycline was initiated to cover for any superimposed bacterial infection. 5. Continue current aggressive care and follow her respiratory status closely. 6. Stable respiratory status. Currently on 8 L. 7. Repeat chest x-ray. JACK RIVERA MD Oct 10, 2020 07:59
[2020-10-10] MEDS ORDERED: POTASSIUM CHLORIDE 20 MEQ TABLET.ER. PO ONE (09:00)
[2020-10-10] MEDS: CITALOPRAM 20 MG TABLET. PO SCH (09:20)
[2020-10-10] MEDS: CYCLOBENZAPRINE 10 MG TABLET. PO SCH ×3 (09:20→20:43)
[2020-10-10] MEDS: URSODIOL 300 MG CAPSULE. PO SCH ×4 (09:20→20:43)
[2020-10-10] MEDS: HYDROcodone/APAP 5/325MG 1 TAB TABLET PO PRN ×3 (09:20→20:44)
[2020-10-10] MEDS: MULTIVITAMIN with MINERAL TABLET. PO SCH (09:21)
[2020-10-10] MEDS: DEXAMETHASONE 4 MG TABLET PO SCH (09:21)
[2020-10-10] MEDS: FUROSEMIDE 20 MG TABLET PO SCH (09:21)
[2020-10-10] MEDS: FAMOTIDINE 20 MG TABLET. PO SCH (09:21)
[2020-10-10] MEDS: OXYMETAZOLINE 0.05% NASAL SPRAY 30ML BOTTLE. NS SCH ×2 (09:22→20:43)
[2020-10-10] MEDS: DOXYCYCLINE HYCLATE 100 MG in IV DEXTROSE 5% 100ML 100 ML IV SCH ×2 (09:24→20:43)
[2020-10-10] MEDS: ASPIRIN ENTERIC COATED 81 MG TABLET.DR. PO SCH (09:36)
[2020-10-10] MEDS: COLESTIPOL HCL 1 GM TABLET PO SCH ×2 (10:00→20:44)
--- NOTE | 2020-10-10 10:53 | PDOC ---
[employer] PROGRESS NOTE Date of Service DOS: DATE: 10/10/20 TIME: 10:33 Chief Complaint Chief Complaint Acute respiratory failure with hypoxia COVID-19 pneumonia Autoimmune hepatitis Migraines History of Present Illness History of Present Illness Patient is a 45-year-old female transferred from [facility] overnight due to COVID-19 pneumonia. She presented to the outside hospital September 27 complaining of 2-day history of shortness of breath that was worsening. Per report from them she was diagnosed with Covid on September 24. Patient reported she was also having some nausea and decreased p.o. tolerance. On arrival to [facility] she was noted to have sinus tach and hypoxia requiring 6 L nasal cannula to bring her saturations into the 90s. She was started on steroids and Levaquin. At that point due to failure increasing respiratory status [facility] contacted for transfer to the ICU here. This was delayed due to bed availability but patient eventually arrived here September 29. 09/30: When seen at this morning she was on 10 L nonrebreather. She does have a history of autoimmune hepatitis on home CellCept. We will hold this medication given positive Covid. Patient reported she has had to hold it in the past before without major issue. 10/01: Patient evaluated at bedside. She was on 10L NRB. Complaining of unilateral headache. Continued covid treatment. 10/02: Patient seen at bedside she was on 8 L nasal cannula. Does report her breathing feels somewhat better. No further headaches. Continue current Covid treatment. Wean O2 as tolerated. Remains on remdesivir and IV antibiotics. 10/03: Patient evaluated bedside on 8 L nasal cannula. Does report continued improved respiratory status. Complaining of some fatigue. Continue to wean O2 continue Covid treat minute. Possible discharge over the weekend. 10/06: Afebrile. Completed remdesivir. We will continue with empiric antibiotics and steroids, Decadron 10 mg twice daily. Continue steroids to complete a 10-day course (last day should be 10/10/2020). Continue to wean O2, currently breathing 8 L nasal cannula. 10/07: Afebrile, currently on 8 L nasal cannula. Finished remdesivir. Decrease Decadron to 10 mg daily and continue to wean to her home regular prednisone dosage. She will completed 10 days of IV Decadron on 10/10/2020, at which time we can resume her on her regular prednisone if oxygen requirement tolerates. 10/08: Afebrile. Completed remdesivir. Still breathing on 8 L nasal cannula. We will continue IV steroids. We will continue to wean oxygen and steroid requirement. Patient states she feels neglected by nursing staff waiting to help her to the restroom. States she had an accident herself this morning. She is requesting Melgar catheter; discussed with RN, recommended Loc. 10/09: Patient seen and examined. Patient in no acute distress. Patient still on 8L O2 per nasal cannula. She is receiving COVID-19 Protocol (steroid, antitussive, multivitamin, zoysn, doxycycline, aspirin). Discussed with RN. Chart reviewed. Potassium was low (2.6) on 10/08 and patient was given one dose of potassium supplement, however, potassium continued to trend low (2.4) today therefore we plan to start daily potassium supplement. 10/10: Patient seen and examined. Discussed with RN. Chart reviewed. Patient was in mild distress on examination. She endorsed having trouble breathing with 8L O2 per nasal cannula; pulse ox was 95. Plan to put patient on oxygen mask. Patient endorses 8/10 pain everywhere. Nurse reports her IVs are going bad. She is refusing blood draws, therefore, her potassium level can not be assessed. Her CRP has increased from 6.2 on 10/08 to 48 on 10/09. Vitals/I&O Vitals/I&O: Vital Signs Date Time Temp Pulse Resp B/P (MAP) Pulse Ox O2 Delivery O2 Flow Rate FiO2 10/10/20 09:20 Nasal Cannula 10/10/20 07:00 97.9 101 16 125/90 (102) 95 8.0 97.9 I & O 10/09/20 10/09/20 10/10/20 15:00 23:00 07:00 Intake Total 560 ml 350 ml 300 ml Output Total 500 ml 400 ml Balance 60 ml 350 ml -100 ml Physical Exam General: Alert, Oriented X3, Cooperative, mild distress (Patient endorses trouble breathing) Heart: Regular rate, Normal S1, Normal S2 Abdomen: Normal bowel sounds, Soft Extremities: No clubbing, No cyanosis, No edema, Normal pulses Skin: No breakdown, No significant lesion Review of Systems Review of Systems: Patient denies nausea and vomiting Assessment and Plan Assessmemt and Plan Assessment: Acute respiratory failure with hypoxia COVID-19 pneumonia Autoimmune hepatitis Migraines Plan: 1. Continue COVID-19 Protocol (dexamethasone, antitussive, multivitamins, zosyn, doxycycline, aspirin, oxygen) - Remdesivir finished on 10/03 -Continue dexamethasone for 10 days (started on 09/30) then plan to wean to baseline home prednisone dose 2. Continue daily supplemental potassium -Potassium 2.6 on 10/08 -Potassium 2.4 on 10/09 3. Trend potassium level 4. Appreciate pulmonary consultation input 5. Place patient on O2 mask -titrate down O2 requirements as tolerated 6. Continue PRN pain meds as needed 7. Continue home meds 8. Trend labs 9. Encourage PO Intake 10. Continue DVT Prophylaxis (Lovenox) 11. Discharge disposition pending (plan to discharge when O2 requirements reduce to 2L per nasal cannula) Comment Review of Relevant I have reviewed the following items poli (where applicable) has been applied. Medications: Current Medications Medications (Trade) Dose Ordered Sig/Olegario Route PRN Reason Start Time Stop Time Status Last Admin Dose Admin Potassium Chloride (Klor-Con) 40 meq 1X ONCE PO 10/09/20 12:00 10/09/20 12:07 DC 10/09/20 13:54 Potassium Chloride (Klor-Con) 20 meq DAILY ONCE PO 10/10/20 09:00 10/10/20 09:01 DC 10/10/20 09:22 Potassium Chloride (Klor-Con) 40 meq 1X ONCE PO 10/09/20 21:00 10/09/20 21:01 DC 10/09/20 21:20 Dexamethasone (Decadron) 6 mg DAILY PO 10/10/20 09:00 10/10/20 09:21 Justifications for Admission Other Justification JANENE HAMILTON III DO Oct 10, 2020 10:53
[2020-10-10 11:00] VITALS: BP 113/77
--- NOTE | 2020-10-10 11:42 | NUR ---
SS following up with discharge planning. SS reviewed pt chart and discussed with pt RN. Pt is currently requiring oxygen at eight liters nasal canula. COVID19 positive. Pt on IV Doxycycline, IV Zosyn, PO Decadron, and PO Lasix. Pt has no home oxygen and will need six minute walk when medically ready for discharge. Pt not medically stable for six minute walk today. SS will continue to follow for discharge planning.
[2020-10-10 15:00] VITALS: BP 108/75
[2020-10-10] MEDS: ENOXAPARIN 40 MG/0.4 ML SYRINGE. SQ SCH (15:34)
[2020-10-10 19:05] VITALS: BP 146/99
[2020-10-10] MEDS: OLANZapine 5 MG TABLET PO SCH (20:43)
[2020-10-10] MEDS: PROGESTERONE, MICRONIZED 100 MG CAPSULE PO SCH (20:43)
[2020-10-10 23:00] VITALS: BP 132/87
[2020-10-11] MEDS: PIPERACILLIN/TAZOBACTAM 3.375 GM in IV NORMAL SALINE 50ML 50 ML IV SCH ×4 (00:06→18:00)
[2020-10-11] MEDS: HYDROcodone/APAP 5/325MG 1 TAB TABLET PO PRN ×3 (04:10→16:45)
[2020-10-11 04:44] LABS: BASO # 0.1 x10^3/uL (0.0-0.2); BASO % 1 % (0-3); EOS # 0.1 x10^3/uL (0.0-0.7); EOS % 0 % (0-3); HEMATOCRIT 31.5 % (36.0-47.0); LYMPH # 3.7 x10^3/uL (1.0-4.8); LYMPH % 16 % (24-48); MEAN CORPUSCULAR HEMOGLOBIN 29 pg (25-35); MEAN CORPUSCULAR HGB CONC 32 g/dL (31-37); MEAN CORPUSCULAR VOLUME 90 fL (79-100); MONO # 1.4 x10^3/uL (0.0-1.1); MONO % 6 % (0-9); NEUT # 18.8 x10^3/uL (1.8-7.7); NEUT % 78 % (31-73); PLATELET COUNT 269 x10^3/uL (140-400); RED CELL DISTRIBUTION WIDTH 13.2 % (11.5-14.5); WHITE BLOOD COUNT 24.1 x10^3/uL (4.0-11.0)
[2020-10-11 05:07] LABS: C-REACTIVE PROTEIN 42.9 mg/L (0-3.3); CALCIUM 8.3 mg/dL (8.5-10.1); CREATININE 0.9 mg/dL (0.6-1.0); GFR 82.3; POTASSIUM 3.1 mmol/L (3.5-5.1)
--- NOTE | 2020-10-11 05:46 | NUR ---
Patient uses call light for assist to BSC. Upon entering room bed alarm sounding and patient found on floor at foot of bed sitting on her left thigh with her legs under her. Patient was able to help self off floor with minimal assist. A/O x 4. Admits to fatigue. Was incontinent of urine in brief. Patient denies injury. No injury noted. Helped patient back to bed. Placed purewick on patient. Placed call light at hand. Placed bed alarm on.
[2020-10-11] MEDS: LEVOTHYROXINE 50 MCG TABLET PO SCH (06:33)
[2020-10-11 07:00] VITALS: BP 139/92
--- NOTE | 2020-10-11 07:42 | PDOC ---
PULMONARY PROGRESS NOTES DATE: 10/11/20 TIME: 07:42 Subjective Patient less anxious today, feels better. Vitals Vital Signs Date Time Temp Pulse Resp B/P (MAP) Pulse Ox O2 Delivery O2 Flow Rate FiO2 10/11/20 04:40 20 91 Nasal Cannula 8.0 10/11/20 03:00 87 10/10/20 23:00 97.7 132/87 (102) 97.7 Comments Visual exam done due to COVID-19 pneumonia. no distress nc at rrr No paradoxical breathing no respiratory distress no skin rash no leg edema Labs Laboratory Tests Test 10/09/20 10:00 10/11/20 04:00 White Blood Count 25.1 x10^3/uL (4.0-11.0) 24.1 x10^3/uL (4.0-11.0) Red Blood Count 3.93 x10^6/uL (3.50-5.40) 3.50 x10^6/uL (3.50-5.40) Hemoglobin 11.5 g/dL (12.0-15.5) 10.0 g/dL (12.0-15.5) Hematocrit 35.3 % (36.0-47.0) 31.5 % (36.0-47.0) Mean Corpuscular Volume 90 fL (79-100) 90 fL (79-100) Mean Corpuscular Hemoglobin 29 pg (25-35) 29 pg (25-35) Mean Corpuscular Hemoglobin Concent 33 g/dL (31-37) 32 g/dL (31-37) Red Cell Distribution Width 13.9 % (11.5-14.5) 13.2 % (11.5-14.5) Platelet Count 338 x10^3/uL (140-400) 269 x10^3/uL (140-400) Neutrophils (%) (Auto) 73 % (31-73) 78 % (31-73) Lymphocytes (%) (Auto) 19 % (24-48) 16 % (24-48) Monocytes (%) (Auto) 7 % (0-9) 6 % (0-9) Eosinophils (%) (Auto) 1 % (0-3) 0 % (0-3) Basophils (%) (Auto) 0 % (0-3) 1 % (0-3) Neutrophils # (Auto) 18.3 x10^3/uL (1.8-7.7) 18.8 x10^3/uL (1.8-7.7) Lymphocytes # (Auto) 4.8 x10^3/uL (1.0-4.8) 3.7 x10^3/uL (1.0-4.8) Monocytes # (Auto) 1.8 x10^3/uL (0.0-1.1) 1.4 x10^3/uL (0.0-1.1) Eosinophils # (Auto) 0.1 x10^3/uL (0.0-0.7) 0.1 x10^3/uL (0.0-0.7) Basophils # (Auto) 0.0 x10^3/uL (0.0-0.2) 0.1 x10^3/uL (0.0-0.2) Sodium Level 141 mmol/L (136-145) 142 mmol/L (136-145) Potassium Level 2.4 mmol/L (3.5-5.1) 3.1 mmol/L (3.5-5.1) Chloride Level 109 mmol/L (98-107) 111 mmol/L (98-107) Carbon Dioxide Level 18 mmol/L (21-32) 23 mmol/L (21-32) Anion Gap 14 (6-14) 8 (6-14) Blood Urea Nitrogen 23 mg/dL (7-20) 28 mg/dL (7-20) Creatinine 0.9 mg/dL (0.6-1.0) 0.9 mg/dL (0.6-1.0) Estimated GFR (Cockcroft-Gault) 82.3 82.3 Glucose Level 96 mg/dL (70-99) 68 mg/dL (70-99) Calcium Level 7.9 mg/dL (8.5-10.1) 8.3 mg/dL (8.5-10.1) C-Reactive Protein, Quantitative 48.0 mg/L (0-3.3) 42.9 mg/L (0-3.3) Laboratory Tests Test 10/11/20 04:00 White Blood Count 24.1 x10^3/uL (4.0-11.0) Red Blood Count 3.50 x10^6/uL (3.50-5.40) Hemoglobin 10.0 g/dL (12.0-15.5) Hematocrit 31.5 % (36.0-47.0) Mean Corpuscular Volume 90 fL (79-100) Mean Corpuscular Hemoglobin 29 pg (25-35) Mean Corpuscular Hemoglobin Concent 32 g/dL (31-37) Red Cell Distribution Width 13.2 % (11.5-14.5) Platelet Count 269 x10^3/uL (140-400) Neutrophils (%) (Auto) 78 % (31-73) Lymphocytes (%) (Auto) 16 % (24-48) Monocytes (%) (Auto) 6 % (0-9) Eosinophils (%) (Auto) 0 % (0-3) Basophils (%) (Auto) 1 % (0-3) Neutrophils # (Auto) 18.8 x10^3/uL (1.8-7.7) Lymphocytes # (Auto) 3.7 x10^3/uL (1.0-4.8) Monocytes # (Auto) 1.4 x10^3/uL (0.0-1.1) Eosinophils # (Auto) 0.1 x10^3/uL (0.0-0.7) Basophils # (Auto) 0.1 x10^3/uL (0.0-0.2) Sodium Level 142 mmol/L (136-145) Potassium Level 3.1 mmol/L (3.5-5.1) Chloride Level 111 mmol/L (98-107) Carbon Dioxide Level 23 mmol/L (21-32) Anion Gap 8 (6-14) Blood Urea Nitrogen 28 mg/dL (7-20) Creatinine 0.9 mg/dL (0.6-1.0) Estimated GFR (Cockcroft-Gault) 82.3 Glucose Level 68 mg/dL (70-99) Calcium Level 8.3 mg/dL (8.5-10.1) C-Reactive Protein, Quantitative 42.9 mg/L (0-3.3) Medications Active Scripts Medications Dose Route/Sig Max Daily Dose Days Date Category Cimetidine 200 Mg Tablet 1 Tab PO BID 09/30/20 Reported Femring (Estradiol Acetate) 1 Each Vag.ring 1 Ring VAG [id number] 09/30/20 Reported Naproxen 500 Mg Tablet 1 Tab PO BID 09/30/20 Reported Famotidine 40 Mg Tablet 1 Tab PO DAILY 09/30/20 Reported Sucralfate 1 Gm Tablet 1 Tab PO QID 09/30/20 Reported Progesterone (Progesterone,Micronized) 200 Mg Capsule 1 Cap PO QHS 09/30/20 Reported Ondansetron Odt (Ondansetron) 8 Mg Tab.rapdis 1 Tab PO PRN TID PRN 09/30/20 Reported Prochlorperazine Maleate 10 Mg Tablet 10 Mg PO PRN Q8HRS PRN 09/30/20 Reported Vitamin D2 (Ergocalciferol (Vitamin D2)) 1,250 Mcg Capsule 1 Cap PO TWICE WEEKLY 09/30/20 Reported Mycophenolate Mofetil 500 Mg Tablet 500 Mg PO BID 09/30/20 Reported Colestipol Hcl 1 Gm Tablet 1 Gm PO BID 09/13/19 Reported Escitalopram Oxalate 10 Mg Tablet 10 Mg PO DAILY 09/13/19 Reported Olanzapine 15 Mg Tablet 15 Mg PO QHS 09/13/19 Reported Promethazine Hcl 25 Mg Tablet 25 Mg PO PRN Q8HRS PRN 09/13/19 Reported Voltaren (Diclofenac Sodium) 100 Gm Gel..gram. 100 Gm TP DAILY 09/13/19 Reported Cyclobenzaprine Hcl 10 Mg Tablet 10 Mg PO TID 09/13/19 Reported Furosemide 20 Mg Tablet 20 Mg PO DAILY 09/13/19 Reported Prednisone 5 Mg Tablet 5 Mg PO DAILY 09/13/19 Reported Diphenhydramine Hcl 50 Mg Capsule 50 Mg PO PRN Q6HRS PRN 08/15/17 Reported Benzonatate 100 Mg Capsule 1 Cap PO PRN TID PRN 08/15/17 Reported Ursodiol 300 Mg Capsule 300 Mg PO QID 07/18/14 Reported Levothyroxine Sodium 50 Mcg Tablet 1 Tab PO DAILY 07/18/14 Reported Impression . 1. Acute hypoxic respiratory failure secondary to COVID-19 viral pneumonia, acute lung injury and early acute respiratory distress syndrome. 2. COVID-19 viral pneumonia in the patient who is not vaccinated and immunosuppressed. She is on CellCept and prednisone at home. 3. Abnormal liver function test, could be related to COVID. Not a candidate for tocilizumab. 4. Moderate protein-calorie malnutrition. 5. Nonsmoker. 6. Nonspecific anxiety Chest x-ray reviewed from 10/09, compatible with Covid Plan . Updated 10/11 Continue oxygen supplementation Steroids Up to chair Anxiolytics as needed DVT GI prophylaxis updated 10/10 Continue oxygen supplementation increase as needed Discussed with RN anxiolytic as needed Continue steroids Monitor closely DVT GI prophylax RECOMMENDATIONS: 1. titrate fio2 to keep saturations 90%. Oxygen requirement marginal. Remains on 8 L nasal cannula. 2. Continue remdesivir. 3. steroid with dexa for 10 days ,wean to baseline home prednisone dose. 4. Empiric Zosyn and doxycycline was initiated to cover for any superimposed bacterial infection. 5. Continue current aggressive care and follow her respiratory status closely. 6. Stable respiratory status. Currently on 8 L. 7. Repeat chest x-ray. JACK RIVERA MD Oct 11, 2020 07:42
[2020-10-11] MEDS: OXYMETAZOLINE 0.05% NASAL SPRAY 30ML BOTTLE. NS SCH ×2 (09:00→21:00)
[2020-10-11] MEDS: MULTIVITAMIN with MINERAL TABLET. PO SCH (09:08)
[2020-10-11] MEDS: FAMOTIDINE 20 MG TABLET. PO SCH (09:08)
[2020-10-11] MEDS: POTASSIUM CHLORIDE 20 MEQ TABLET.ER. PO SCH (09:08)
[2020-10-11] MEDS: URSODIOL 300 MG CAPSULE. PO SCH ×4 (09:08→21:28)
[2020-10-11] MEDS: DEXAMETHASONE 4 MG TABLET PO SCH (09:08)
[2020-10-11] MEDS: ASPIRIN ENTERIC COATED 81 MG TABLET.DR. PO SCH (09:09)
[2020-10-11] MEDS: FUROSEMIDE 20 MG TABLET PO SCH (09:09)
[2020-10-11] MEDS: DOXYCYCLINE HYCLATE 100 MG in IV DEXTROSE 5% 100ML 100 ML IV SCH ×2 (09:10→21:00)
[2020-10-11] MEDS: CITALOPRAM 20 MG TABLET. PO SCH (09:10)
[2020-10-11] MEDS: CYCLOBENZAPRINE 10 MG TABLET. PO SCH ×3 (09:11→21:28)
[2020-10-11] MEDS: COLESTIPOL HCL 1 GM TABLET PO SCH ×2 (10:23→21:29)
[2020-10-11 10:59] VITALS: BP 121/83
--- NOTE | 2020-10-11 11:22 | PDOC ---
[employer] PROGRESS NOTE Date of Service DOS: DATE: 10/11/20 TIME: 11:21 Chief Complaint Chief Complaint Acute respiratory failure with hypoxia COVID-19 pneumonia Autoimmune hepatitis Migraines obese, BMI 32 History of Present Illness History of Present Illness Patient is a 45-year-old female transferred from [facility] overnight due to COVID-19 pneumonia. She presented to the outside hospital September 27 complaining of 2-day history of shortness of breath that was worsening. Per report from them she was diagnosed with Covid on September 24. Patient reported she was also having some nausea and decreased p.o. tolerance. On arrival to [facility] she was noted to have sinus tach and hypoxia requiring 6 L nasal cannula to bring her saturations into the 90s. She was started on steroids and Levaquin. At that point due to failure increasing respiratory status [facility] for transfer to the ICU here. This was delayed due to bed availability but patient eventually arrived here September 29. 10/11: Patient seen and examined. has incontinence of urine, Discussed with RN. Chart reviewed. Patient was in mild distress on examination. She endorsed having trouble breathing with 6L O2 per nasal cannula; pulse ox was 95. Plan to put patient on oxygen mask. Patient endorses 6/10 pain everywhere. Nurse reports her IVs are going bad. She is refusing blood draws, therefore, her potassium level can not be assessed. Her CRP has increased from 6.2 on 10/08 to 48 on 10/09. Vitals/I&O Vitals/I&O: Vital Signs Date Time Temp Pulse Resp B/P (MAP) Pulse Ox O2 Delivery O2 Flow Rate FiO2 10/11/20 10:59 97.6 101 20 121/83 (96) 97 Nasal Cannula 10.0 97.6 I & O 10/10/20 10/10/20 10/11/20 15:00 23:00 07:00 Intake Total 100 ml 250 ml Output Total 850 ml 400 ml Balance -850 ml 100 ml -150 ml Physical Exam General: Alert, Oriented X3, Cooperative, mild distress (Patient endorses trouble breathing) Heart: Regular rate, Normal S1, Normal S2 Abdomen: Normal bowel sounds, Soft Extremities: No clubbing, No cyanosis, No edema, Normal pulses Skin: No breakdown, No significant lesion Labs Labs: Laboratory Tests Test 10/11/20 04:00 White Blood Count 24.1 x10^3/uL (4.0-11.0) Red Blood Count 3.50 x10^6/uL (3.50-5.40) Hemoglobin 10.0 g/dL (12.0-15.5) Hematocrit 31.5 % (36.0-47.0) Mean Corpuscular Volume 90 fL (79-100) Mean Corpuscular Hemoglobin 29 pg (25-35) Mean Corpuscular Hemoglobin Concent 32 g/dL (31-37) Red Cell Distribution Width 13.2 % (11.5-14.5) Platelet Count 269 x10^3/uL (140-400) Neutrophils (%) (Auto) 78 % (31-73) Lymphocytes (%) (Auto) 16 % (24-48) Monocytes (%) (Auto) 6 % (0-9) Eosinophils (%) (Auto) 0 % (0-3) Basophils (%) (Auto) 1 % (0-3) Neutrophils # (Auto) 18.8 x10^3/uL (1.8-7.7) Lymphocytes # (Auto) 3.7 x10^3/uL (1.0-4.8) Monocytes # (Auto) 1.4 x10^3/uL (0.0-1.1) Eosinophils # (Auto) 0.1 x10^3/uL (0.0-0.7) Basophils # (Auto) 0.1 x10^3/uL (0.0-0.2) Sodium Level 142 mmol/L (136-145) Potassium Level 3.1 mmol/L (3.5-5.1) Chloride Level 111 mmol/L (98-107) Carbon Dioxide Level 23 mmol/L (21-32) Anion Gap 8 (6-14) Blood Urea Nitrogen 28 mg/dL (7-20) Creatinine 0.9 mg/dL (0.6-1.0) Estimated GFR (Cockcroft-Gault) 82.3 Glucose Level 68 mg/dL (70-99) Calcium Level 8.3 mg/dL (8.5-10.1) C-Reactive Protein, Quantitative 42.9 mg/L (0-3.3) Comment Review of Relevant I have reviewed the following items poli (where applicable) has been applied. Medications: Current Medications Medications (Trade) Dose Ordered Sig/Olegario Route PRN Reason Start Time Stop Time Status Last Admin Dose Admin Potassium Chloride (Klor-Con) 20 meq [id number] PO 10/11/20 08:00 10/11/20 09:08 Justifications for Admission Other Justification ROBBIE GUAMAN MD Oct 11, 2020 11:22
[2020-10-11] MEDS: ENOXAPARIN 40 MG/0.4 ML SYRINGE. SQ SCH (14:34)
[2020-10-11 15:00] VITALS: BP 131/96
[2020-10-11 19:28] VITALS: BP 130/76
[2020-10-11] MEDS: OLANZapine 5 MG TABLET PO SCH (21:27)
[2020-10-11] MEDS: PROGESTERONE, MICRONIZED 100 MG CAPSULE PO SCH (21:28)
[2020-10-11 22:26] VITALS: BP 121/84
[2020-10-12 03:01] VITALS: BP 116/70
[2020-10-12] MEDS: PIPERACILLIN/TAZOBACTAM 3.375 GM in IV NORMAL SALINE 50ML 50 ML IV SCH ×5 (06:00→23:48)
[2020-10-12] MEDS: LEVOTHYROXINE 50 MCG TABLET PO SCH (06:40)
[2020-10-12 07:00] VITALS: BP 123/78
[2020-10-12] MEDS: FUROSEMIDE 20 MG TABLET PO SCH (08:25)
[2020-10-12] MEDS: CITALOPRAM 20 MG TABLET. PO SCH (08:26)
[2020-10-12] MEDS: MULTIVITAMIN with MINERAL TABLET. PO SCH (08:27)
[2020-10-12] MEDS: POTASSIUM CHLORIDE 20 MEQ TABLET.ER. PO SCH (08:27)
[2020-10-12] MEDS: ASPIRIN ENTERIC COATED 81 MG TABLET.DR. PO SCH (08:27)
[2020-10-12] MEDS: URSODIOL 300 MG CAPSULE. PO SCH ×4 (08:27→19:52)
[2020-10-12] MEDS: FAMOTIDINE 20 MG TABLET. PO SCH (08:28)
[2020-10-12] MEDS: CYCLOBENZAPRINE 10 MG TABLET. PO SCH ×3 (08:28→19:52)
[2020-10-12] MEDS: DEXAMETHASONE 4 MG TABLET PO SCH (08:28)
[2020-10-12] MEDS: HYDROcodone/APAP 5/325MG 1 TAB TABLET PO PRN ×2 (08:28→19:53)
[2020-10-12] MEDS: OXYMETAZOLINE 0.05% NASAL SPRAY 30ML BOTTLE. NS SCH ×2 (08:29→19:52)
[2020-10-12] MEDS: COLESTIPOL HCL 1 GM TABLET PO SCH ×2 (09:28→19:53)
--- NOTE | 2020-10-12 10:13 | PDOC ---
PULMONARY PROGRESS NOTES DATE: 10/12/20 TIME: 10:12 Subjective Patient at times anxious No new symptoms of increasing shortness of breath no chest pain Vitals Vital Signs Date Time Temp Pulse Resp B/P (MAP) Pulse Ox O2 Delivery O2 Flow Rate FiO2 10/12/20 08:58 97 Nasal Cannula 10.0 10/12/20 07:00 97.9 99 20 123/78 (93) 97.9 Comments Visual exam done due to COVID-19 pneumonia. no distress nc at rrr No paradoxical breathing no respiratory distress no skin rash no leg edema Labs Laboratory Tests Test 10/11/20 04:00 White Blood Count 24.1 x10^3/uL (4.0-11.0) Red Blood Count 3.50 x10^6/uL (3.50-5.40) Hemoglobin 10.0 g/dL (12.0-15.5) Hematocrit 31.5 % (36.0-47.0) Mean Corpuscular Volume 90 fL (79-100) Mean Corpuscular Hemoglobin 29 pg (25-35) Mean Corpuscular Hemoglobin Concent 32 g/dL (31-37) Red Cell Distribution Width 13.2 % (11.5-14.5) Platelet Count 269 x10^3/uL (140-400) Neutrophils (%) (Auto) 78 % (31-73) Lymphocytes (%) (Auto) 16 % (24-48) Monocytes (%) (Auto) 6 % (0-9) Eosinophils (%) (Auto) 0 % (0-3) Basophils (%) (Auto) 1 % (0-3) Neutrophils # (Auto) 18.8 x10^3/uL (1.8-7.7) Lymphocytes # (Auto) 3.7 x10^3/uL (1.0-4.8) Monocytes # (Auto) 1.4 x10^3/uL (0.0-1.1) Eosinophils # (Auto) 0.1 x10^3/uL (0.0-0.7) Basophils # (Auto) 0.1 x10^3/uL (0.0-0.2) Sodium Level 142 mmol/L (136-145) Potassium Level 3.1 mmol/L (3.5-5.1) Chloride Level 111 mmol/L (98-107) Carbon Dioxide Level 23 mmol/L (21-32) Anion Gap 8 (6-14) Blood Urea Nitrogen 28 mg/dL (7-20) Creatinine 0.9 mg/dL (0.6-1.0) Estimated GFR (Cockcroft-Gault) 82.3 Glucose Level 68 mg/dL (70-99) Calcium Level 8.3 mg/dL (8.5-10.1) C-Reactive Protein, Quantitative 42.9 mg/L (0-3.3) Medications Active Scripts Medications Dose Route/Sig Max Daily Dose Days Date Category Cimetidine 200 Mg Tablet 1 Tab PO BID 09/30/20 Reported Femring (Estradiol Acetate) 1 Each Vag.ring 1 Ring VAG [id number] 09/30/20 Reported Naproxen 500 Mg Tablet 1 Tab PO BID 09/30/20 Reported Famotidine 40 Mg Tablet 1 Tab PO DAILY 09/30/20 Reported Sucralfate 1 Gm Tablet 1 Tab PO QID 09/30/20 Reported Progesterone (Progesterone,Micronized) 200 Mg Capsule 1 Cap PO QHS 09/30/20 Reported Ondansetron Odt (Ondansetron) 8 Mg Tab.rapdis 1 Tab PO PRN TID PRN 09/30/20 Reported Prochlorperazine Maleate 10 Mg Tablet 10 Mg PO PRN Q8HRS PRN 09/30/20 Reported Vitamin D2 (Ergocalciferol (Vitamin D2)) 1,250 Mcg Capsule 1 Cap PO TWICE WEEKLY 09/30/20 Reported Mycophenolate Mofetil 500 Mg Tablet 500 Mg PO BID 09/30/20 Reported Colestipol Hcl 1 Gm Tablet 1 Gm PO BID 09/13/19 Reported Escitalopram Oxalate 10 Mg Tablet 10 Mg PO DAILY 09/13/19 Reported Olanzapine 15 Mg Tablet 15 Mg PO QHS 09/13/19 Reported Promethazine Hcl 25 Mg Tablet 25 Mg PO PRN Q8HRS PRN 09/13/19 Reported Voltaren (Diclofenac Sodium) 100 Gm Gel..gram. 100 Gm TP DAILY 09/13/19 Reported Cyclobenzaprine Hcl 10 Mg Tablet 10 Mg PO TID 09/13/19 Reported Furosemide 20 Mg Tablet 20 Mg PO DAILY 09/13/19 Reported Prednisone 5 Mg Tablet 5 Mg PO DAILY 09/13/19 Reported Diphenhydramine Hcl 50 Mg Capsule 50 Mg PO PRN Q6HRS PRN 08/15/17 Reported Benzonatate 100 Mg Capsule 1 Cap PO PRN TID PRN 08/15/17 Reported Ursodiol 300 Mg Capsule 300 Mg PO QID 07/18/14 Reported Levothyroxine Sodium 50 Mcg Tablet 1 Tab PO DAILY 07/18/14 Reported Impression . 1. Acute hypoxic respiratory failure secondary to COVID-19 viral pneumonia, acute lung injury and early acute respiratory distress syndrome. 2. COVID-19 viral pneumonia in the patient who is not vaccinated and immunosuppressed. She is on CellCept and prednisone at home. 3. Abnormal liver function test, could be related to COVID. Not a candidate for tocilizumab. 4. Moderate protein-calorie malnutrition. 5. Nonsmoker. 6. Nonspecific anxiety Chest x-ray reviewed from 10/09, compatible with Covid Plan . Updated 10/12 Continue current support oxygen Up to chair Steroids Anxiolytics updated 10/11 Continue oxygen supplementation Steroids Up to chair Anxiolytics as needed DVT GI prophylaxis updated 10/10 Continue oxygen supplementation increase as needed Discussed with RN anxiolytic as needed Continue steroids Monitor closely DVT GI prophylax JACK RIVERA MD Oct 12, 2020 10:13
[2020-10-12 10:39] VITALS: BP 111/74
--- NOTE | 2020-10-12 11:03 | PDOC ---
[employer] PROGRESS NOTE Date of Service DOS: DATE: 10/12/20 TIME: 11:01 Chief Complaint Chief Complaint Acute respiratory failure with hypoxia COVID-19 pneumonia, was not vaccinated chronic Autoimmune hepatitis, takes cellcelpt Migraines obese, BMI 32 History of Present Illness History of Present Illness Patient is a 45-year-old female transferred from [facility] overnight due to COVID-19 pneumonia. She presented to the outside hospital September 27 complaining of 2-day history of shortness of breath that was worsening. Per report from them she was diagnosed with Covid on September 24. Patient reported she was also having some nausea and decreased p.o. tolerance. On arrival to [facility] she was noted to have sinus tach and hypoxia requiring 6 L nasal cannula to bring her saturations into the 90s. She was started on steroids and Levaquin. At that point due to failure increasing respiratory status [facility] for transfer to the ICU here. This was delayed due to bed availability but patient eventually arrived here September 29. 10/11: Patient seen and examined. has incontinence of urine, Discussed with RN. Chart reviewed. Patient was in mild distress on examination. She endorsed having trouble breathing with 6L O2 per nasal cannula; pulse ox was 95. Plan to put patient on oxygen mask. Patient endorses 6/10 pain everywhere. Nurse reports her IVs have failed, She had refused blood draws \\\ 10/12, more calm, but still requiring a lot of oxygen and support very weak, was urinary incontinent, eating Ok no new commpliant Vitals/I&O Vitals/I&O: Vital Signs Date Time Temp Pulse Resp B/P (MAP) Pulse Ox O2 Delivery O2 Flow Rate FiO2 10/12/20 10:39 97.7 91 18 111/74 (86) 96 Nasal Cannula 10.0 97.7 I & O 10/11/20 10/11/20 10/12/20 15:00 23:00 07:00 Intake Total 1080 ml 360 ml 0 ml Output Total 600 ml 1450 ml 0 ml Balance 480 ml -1090 ml 0 ml Physical Exam General: Alert, Oriented X3, Cooperative, mild distress (Patient endorses trouble breathing) Heart: Regular rate, Normal S1, Normal S2 Abdomen: Normal bowel sounds, Soft Extremities: No clubbing, No cyanosis, No edema, Normal pulses Skin: No breakdown, No significant lesion Review of Systems Review of Systems: weakness, cough, poor po intake, has stooled, good urine output Comment Review of Relevant I have reviewed the following items poli (where applicable) has been applied. Justifications for Admission Other Justification ROBBIE GUAMAN MD Oct 12, 2020 11:03
--- NOTE | 2020-10-12 13:53 | RAD ---
Exam Date: 10/12/2020 12:30 PM XR CHEST 1V Indication: Reason: PICC line placement / Spl. Instructions: / History: . Comparison: October 09, 2020 FINDINGS/ IMPRESSION: Left PICC line terminates in the SVC. Patient rotation limits evaluation. The cardiac silhouette is borderline enlarged mild congestion. Patchy bilateral lung infiltrates are more prominent in the lung bases, similar compared to the prior exam. No appreciable pleural effusi on or pneumothorax. Electronically signed by: Silvano Giraldo MD (10/12/2020 1:51 PM) BETTINA
[2020-10-12] MEDS: DOXYCYCLINE HYCLATE 100 MG in IV DEXTROSE 5% 100ML 100 ML IV SCH (14:23)
[2020-10-12] MEDS: ENOXAPARIN 40 MG/0.4 ML SYRINGE. SQ SCH (14:36)
[2020-10-12 15:00] VITALS: BP 110/68
[2020-10-12 19:19] VITALS: BP 124/87
[2020-10-12] MEDS: PROGESTERONE, MICRONIZED 100 MG CAPSULE PO SCH (19:52)
[2020-10-12] MEDS: OLANZapine 5 MG TABLET PO SCH (19:53)
[2020-10-12 22:42] VITALS: BP 136/84
[2020-10-13 03:11] VITALS: BP 137/86
[2020-10-13] MEDS: PIPERACILLIN/TAZOBACTAM 3.375 GM in IV NORMAL SALINE 50ML 50 ML IV SCH (05:48)
[2020-10-13] MEDS: LEVOTHYROXINE 50 MCG TABLET PO SCH (05:49)
[2020-10-13 07:00] VITALS: BP 127/86
[2020-10-13 07:27] LABS: CALCIUM 8.4 mg/dL (8.5-10.1); CREATININE 0.9 mg/dL (0.6-1.0); GFR 82.3
[2020-10-13 07:35] LABS: POTASSIUM 2.8 mmol/L (3.5-5.1)
[2020-10-13] MEDS: FUROSEMIDE 20 MG TABLET PO SCH (08:16)
[2020-10-13] MEDS: FAMOTIDINE 20 MG TABLET. PO SCH (08:16)
[2020-10-13] MEDS: CYCLOBENZAPRINE 10 MG TABLET. PO SCH ×3 (08:17→19:39)
[2020-10-13] MEDS: DEXAMETHASONE 4 MG TABLET PO SCH (08:17)
[2020-10-13] MEDS: COLESTIPOL HCL 1 GM TABLET PO SCH ×2 (08:17→19:40)
[2020-10-13] MEDS: MULTIVITAMIN with MINERAL TABLET. PO SCH (08:17)
[2020-10-13] MEDS: CITALOPRAM 20 MG TABLET. PO SCH (08:17)
[2020-10-13] MEDS: ASPIRIN ENTERIC COATED 81 MG TABLET.DR. PO SCH (08:17)
[2020-10-13] MEDS: POTASSIUM CHLORIDE 20 MEQ TABLET.ER. PO SCH (08:18)
[2020-10-13] MEDS ORDERED: POTASSIUM CHLORIDE 20 MEQ TABLET.ER. PO ONE (08:30)
[2020-10-13] MEDS: OXYMETAZOLINE 0.05% NASAL SPRAY 30ML BOTTLE. NS SCH ×2 (09:00→19:40)
[2020-10-13] MEDS: HYDROcodone/APAP 5/325MG 1 TAB TABLET PO PRN ×4 (09:06→23:49)
[2020-10-13] MEDS: URSODIOL 300 MG CAPSULE. PO SCH ×4 (09:13→19:39)
[2020-10-13 10:42] VITALS: BP 122/87
--- NOTE | 2020-10-13 13:52 | PDOC ---
[employer] PROGRESS NOTE Date of Service DOS: DATE: 10/13/20 TIME: 13:49 Chief Complaint Chief Complaint Acute respiratory failure with hypoxia COVID-19 pneumonia, was not vaccinated chronic Autoimmune hepatitis, takes cellcelpt Migraines obese, BMI 32 History of Present Illness History of Present Illness Patient is a 45-year-old female transferred from [facility] overnight due to COVID-19 pneumonia. She presented to the outside hospital September 27 complaining of 2-day history of shortness of breath that was worsening. Per report from them she was diagnosed with Covid on September 24. Patient reported she was also having some nausea and decreased p.o. tolerance. On arrival to [facility] she was noted to have sinus tach and hypoxia requiring 6 L nasal cannula to bring her saturations into the 90s. She was started on steroids and Levaquin. At that point due to failure increasing respiratory status [facility] for transfer to the ICU here. This was delayed due to bed availability but patient eventually arrived here September 29. 10/11: Patient seen and examined. has incontinence of urine, Discussed with RN. Chart reviewed. Patient was in mild distress on examination. She endorsed having trouble breathing with 6L O2 per nasal cannula; pulse ox was 95. Plan to put patient on oxygen mask. Patient endorses 6/10 pain everywhere. Nurse reports her IVs have failed, She had refused blood draws \\\ 10/12, more calm, but still requiring a lot of oxygen and support very weak, was urinary incontinent, eating Ok no new commpliant 10/13/2020 No acute events overnight. Patient saturating 96% on 7 L nasal cannula. Potassium low at 2.8. Will replace with p.o. and IV replacement. Patient's chart, labs, images were reviewed and discussed with RN Vitals/I&O Vitals/I&O: Vital Signs Date Time Temp Pulse Resp B/P (MAP) Pulse Ox O2 Delivery O2 Flow Rate FiO2 10/13/20 10:42 98.0 107 20 122/87 (99) 97 Nasal Cannula 7.0 98.0 I & O 10/12/20 10/12/20 10/13/20 15:00 23:00 07:00 Intake Total 510 ml 1300 ml 50 ml Output Total 400 ml Balance 510 ml 1300 ml -350 ml Physical Exam General: Alert, Oriented X3, Cooperative, mild distress (Patient endorses tro uble breathing) Heart: Regular rate, Normal S1, Normal S2 Abdomen: Normal bowel sounds, Soft Extremities: No clubbing, No cyanosis, No edema, Normal pulses Skin: No breakdown, No significant lesion Labs Labs: Laboratory Tests Test 10/13/20 05:00 Sodium Level 142 mmol/L (136-145) Potassium Level 2.8 mmol/L (3.5-5.1) Chloride Level 108 mmol/L (98-107) Carbon Dioxide Level 26 mmol/L (21-32) Anion Gap 8 (6-14) Blood Urea Nitrogen 20 mg/dL (7-20) Creatinine 0.9 mg/dL (0.6-1.0) Estimated GFR (Cockcroft-Gault) 82.3 Glucose Level 76 mg/dL (70-99) Calcium Level 8.4 mg/dL (8.5-10.1) Comment Review of Relevant I have reviewed the following items poli (where applicable) has been applied. Medications: Current Medications Medications (Trade) Dose Ordered Sig/Olegario Route PRN Reason Start Time Stop Time Status Last Admin Dose Admin Potassium Chloride (Klor-Con) 40 meq 1X ONCE PO 10/13/20 08:30 10/13/20 08:31 DC 10/13/20 08:28 Justifications for Admission Other Justification JEANNE SUTTON MD Oct 13, 2020 13:52
--- NOTE | 2020-10-13 13:56 | PDOC ---
PULMONARY PROGRESS NOTES DATE: 10/13/20 TIME: 13:55 Subjective Patient feels better, less anxious today. Decrease O2 requirement Vitals Vital Signs Date Time Temp Pulse Resp B/P (MAP) Pulse Ox O2 Delivery O2 Flow Rate FiO2 10/13/20 10:42 98.0 107 20 122/87 (99) 97 Nasal Cannula 7.0 98.0 ROS: No Nausea, No Chest Pain, No Abdominal Pain, No Increase Cough General: Alert Lungs: Clear Cardiovascular: S1, S2 Abdomen: Soft Neuro Exam: Alert Extremities: No Edema Skin: Warm Labs Laboratory Tests Test 10/13/20 05:00 Sodium Level 142 mmol/L (136-145) Potassium Level 2.8 mmol/L (3.5-5.1) Chloride Level 108 mmol/L (98-107) Carbon Dioxide Level 26 mmol/L (21-32) Anion Gap 8 (6-14) Blood Urea Nitrogen 20 mg/dL (7-20) Creatinine 0.9 mg/dL (0.6-1.0) Estimated GFR (Cockcroft-Gault) 82.3 Glucose Level 76 mg/dL (70-99) Calcium Level 8.4 mg/dL (8.5-10.1) Laboratory Tests Test 10/13/20 05:00 Sodium Level 142 mmol/L (136-145) Potassium Level 2.8 mmol/L (3.5-5.1) Chloride Level 108 mmol/L (98-107) Carbon Dioxide Level 26 mmol/L (21-32) Anion Gap 8 (6-14) Blood Urea Nitrogen 20 mg/dL (7-20) Creatinine 0.9 mg/dL (0.6-1.0) Estimated GFR (Cockcroft-Gault) 82.3 Glucose Level 76 mg/dL (70-99) Calcium Level 8.4 mg/dL (8.5-10.1) Medications Active Scripts Medications Dose Route/Sig Max Daily Dose Days Date Category Cimetidine 200 Mg Tablet 1 Tab PO BID 09/30/20 Reported Femring (Estradiol Acetate) 1 Each Vag.ring 1 Ring VAG [id number] 09/30/20 Reported Naproxen 500 Mg Tablet 1 Tab PO BID 09/30/20 Reported Famotidine 40 Mg Tablet 1 Tab PO DAILY 09/30/20 Reported Sucralfate 1 Gm Tablet 1 Tab PO QID 09/30/20 Reported Progesterone (Progesterone,Micronized) 200 Mg Capsule 1 Cap PO QHS 09/30/20 Reported Ondansetron Odt (Ondansetron) 8 Mg Tab.rapdis 1 Tab PO PRN TID PRN 09/30/20 Reported Prochlorperazine Maleate 10 Mg Tablet 10 Mg PO PRN Q8HRS PRN 09/30/20 Reported Vitamin D2 (Ergocalciferol (Vitamin D2)) 1,250 Mcg Capsule 1 Cap PO TWICE WEEKLY 09/30/20 Reported Mycophenolate Mofetil 500 Mg Tablet 500 Mg PO BID 09/30/20 Reported Colestipol Hcl 1 Gm Tablet 1 Gm PO BID 09/13/19 Reported Escitalopram Oxalate 10 Mg Tablet 10 Mg PO DAILY 09/13/19 Reported Olanzapine 15 Mg Tablet 15 Mg PO QHS 09/13/19 Reported Promethazine Hcl 25 Mg Tablet 25 Mg PO PRN Q8HRS PRN 09/13/19 Reported Voltaren (Diclofenac Sodium) 100 Gm Gel..gram. 100 Gm TP DAILY 09/13/19 Reported Cyclobenzaprine Hcl 10 Mg Tablet 10 Mg PO TID 09/13/19 Reported Furosemide 20 Mg Tablet 20 Mg PO DAILY 09/13/19 Reported Prednisone 5 Mg Tablet 5 Mg PO DAILY 09/13/19 Reported Diphenhydramine Hcl 50 Mg Capsule 50 Mg PO PRN Q6HRS PRN 08/15/17 Reported Benzonatate 100 Mg Capsule 1 Cap PO PRN TID PRN 08/15/17 Reported Ursodiol 300 Mg Capsule 300 Mg PO QID 07/18/14 Reported Levothyroxine Sodium 50 Mcg Tablet 1 Tab PO DAILY 07/18/14 Reported Impression . 1. Acute hypoxic respiratory failure secondary to COVID-19 viral pneumonia, acute lung injury and early acute respiratory distress syndrome. 2. COVID-19 viral pneumonia in the patient who is not vaccinated and immunosuppressed. She is on CellCept and prednisone at home. 3. Abnormal liver function test, could be related to COVID. Not a candidate for tocilizumab. 4. Moderate protein-calorie malnutrition. 5. Nonsmoker. 6. Nonspecific anxiety Chest x-ray reviewed from 10/09, compatible with Covid Plan . Updated 10/13 Continues to improve Continue oxygen Steroids Up to chair PT OT May need LTAC Updated 10/12 Continue current support oxygen Up to chair Steroids Anxiolytics updated 10/11 Continue oxygen supplementation Steroids Up to chair Anxiolytics as needed DVT GI prophylaxis updated 10/10 Continue oxygen supplementation increase as needed Discussed with RN anxiolytic as needed Continue steroids Monitor closely DVT GI prophylax JACK RIVERA MD Oct 13, 2020 13:56
[2020-10-13] MEDS: ENOXAPARIN 40 MG/0.4 ML SYRINGE. SQ SCH (14:30)
[2020-10-13 14:45] VITALS: BP 113/77
[2020-10-13 19:25] VITALS: BP 113/76
[2020-10-13] MEDS: PROGESTERONE, MICRONIZED 100 MG CAPSULE PO SCH (19:38)
[2020-10-13] MEDS: OLANZapine 5 MG TABLET PO SCH (19:39)
[2020-10-13] MEDS: BENZONATATE 100 MG CAPSULE. PO PRN (19:46)
[2020-10-13 22:40] VITALS: BP 109/78
[2020-10-14 03:30] VITALS: BP 142/98
[2020-10-14] MEDS: LEVOTHYROXINE 50 MCG TABLET PO SCH (06:17)
[2020-10-14 07:00] VITALS: BP 132/93
--- NOTE | 2020-10-14 08:33 | PDOC ---
PULMONARY PROGRESS NOTES DATE: 10/14/20 TIME: 08:32 Subjective Not more short of air patient feels better, less anxious today. Decrease O2 requirement Vitals Vital Signs Date Time Temp Pulse Resp B/P (MAP) Pulse Ox O2 Delivery O2 Flow Rate FiO2 10/14/20 03:30 98.4 106 22 142/98 (113) 99 Nasal Cannula 7.5 98.4 ROS: No Nausea, No Chest Pain, No Abdominal Pain, No Increase Cough General: Alert Lungs: Clear Cardiovascular: S1, S2 Abdomen: Soft Neuro Exam: Alert Extremities: No Edema Skin: Warm Labs Laboratory Tests Test 10/13/20 05:00 Sodium Level 142 mmol/L (136-145) Potassium Level 2.8 mmol/L (3.5-5.1) Chloride Level 108 mmol/L (98-107) Carbon Dioxide Level 26 mmol/L (21-32) Anion Gap 8 (6-14) Blood Urea Nitrogen 20 mg/dL (7-20) Creatinine 0.9 mg/dL (0.6-1.0) Estimated GFR (Cockcroft-Gault) 82.3 Glucose Level 76 mg/dL (70-99) Calcium Level 8.4 mg/dL (8.5-10.1) Medications Active Scripts Medications Dose Route/Sig Max Daily Dose Days Date Category Cimetidine 200 Mg Tablet 1 Tab PO BID 09/30/20 Reported Femring (Estradiol Acetate) 1 Each Vag.ring 1 Ring VAG [id number] 09/30/20 Reported Naproxen 500 Mg Tablet 1 Tab PO BID 09/30/20 Reported Famotidine 40 Mg Tablet 1 Tab PO DAILY 09/30/20 Reported Sucralfate 1 Gm Tablet 1 Tab PO QID 09/30/20 Reported Progesterone (Progesterone,Micronized) 200 Mg Capsule 1 Cap PO QHS 09/30/20 Reported Ondansetron Odt (Ondansetron) 8 Mg Tab.rapdis 1 Tab PO PRN TID PRN 09/30/20 Reported Prochlorperazine Maleate 10 Mg Tablet 10 Mg PO PRN Q8HRS PRN 09/30/20 Reported Vitamin D2 (Ergocalciferol (Vitamin D2)) 1,250 Mcg Capsule 1 Cap PO TWICE WEEKLY 09/30/20 Reported Mycophenolate Mofetil 500 Mg Tablet 500 Mg PO BID 09/30/20 Reported Colestipol Hcl 1 Gm Tablet 1 Gm PO BID 09/13/19 Reported Escitalopram Oxalate 10 Mg Tablet 10 Mg PO DAILY 09/13/19 Reported Olanzapine 15 Mg Tablet 15 Mg PO QHS 09/13/19 Reported Promethazine Hcl 25 Mg Tablet 25 Mg PO PRN Q8HRS PRN 09/13/19 Reported Voltaren (Diclofenac Sodium) 100 Gm Gel..gram. 100 Gm TP DAILY 09/13/19 Reported Cyclobenzaprine Hcl 10 Mg Tablet 10 Mg PO TID 09/13/19 Reported Furosemide 20 Mg Tablet 20 Mg PO DAILY 09/13/19 Reported Prednisone 5 Mg Tablet 5 Mg PO DAILY 09/13/19 Reported Diphenhydramine Hcl 50 Mg Capsule 50 Mg PO PRN Q6HRS PRN 08/15/17 Reported Benzonatate 100 Mg Capsule 1 Cap PO PRN TID PRN 08/15/17 Reported Ursodiol 300 Mg Capsule 300 Mg PO QID 07/18/14 Reported Levothyroxine Sodium 50 Mcg Tablet 1 Tab PO DAILY 07/18/14 Reported Impression . 1. Acute hypoxic respiratory failure secondary to COVID-19 viral pneumonia, acute lung injury and early acute respiratory distress syndrome. 2. COVID-19 viral pneumonia in the patient who is not vaccinated and immunosuppressed. She is on CellCept and prednisone at home. 3. Abnormal liver function test, could be related to COVID. Not a candidate for tocilizumab. 4. Moderate protein-calorie malnutrition. 5. Nonsmoker. 6. Nonspecific anxiety Chest x-ray reviewed from 10/09, compatible with Covid Plan . Updated 10/14 Spoke with social service, discharge planning in place Continue oxygen supplementation Steroids Up to chair updated 10/13 Continues to improve Continue oxygen Steroids Up to chair PT OT May need LTAC Updated 10/12 Continue current support oxygen Up to chair Steroids Anxiolytics JACK RIVERA MD Oct 14, 2020 08:33
[2020-10-14] MEDS: URSODIOL 300 MG CAPSULE. PO SCH ×4 (08:52→19:40)
[2020-10-14] MEDS: MULTIVITAMIN with MINERAL TABLET. PO SCH (08:52)
[2020-10-14] MEDS: FUROSEMIDE 20 MG TABLET PO SCH (08:52)
[2020-10-14] MEDS: COLESTIPOL HCL 1 GM TABLET PO SCH ×2 (08:52→19:42)
[2020-10-14] MEDS: ASPIRIN ENTERIC COATED 81 MG TABLET.DR. PO SCH (08:52)
[2020-10-14] MEDS: CYCLOBENZAPRINE 10 MG TABLET. PO SCH ×3 (08:52→19:40)
[2020-10-14] MEDS: CITALOPRAM 20 MG TABLET. PO SCH (08:53)
[2020-10-14] MEDS: POTASSIUM CHLORIDE 20 MEQ TABLET.ER. PO SCH ×3 (08:53→19:41)
[2020-10-14] MEDS: DEXAMETHASONE 4 MG TABLET PO SCH (08:53)
[2020-10-14] MEDS: FAMOTIDINE 20 MG TABLET. PO SCH (08:53)
[2020-10-14] MEDS: OXYMETAZOLINE 0.05% NASAL SPRAY 30ML BOTTLE. NS SCH ×2 (09:00→19:41)
[2020-10-14] MEDS: HYDROcodone/APAP 5/325MG 1 TAB TABLET PO PRN ×3 (09:17→19:40)
[2020-10-14 09:27] LABS: BASO # 0.2 x10^3/uL (0.0-0.2); BASO % 1 % (0-3); EOS # 0.1 x10^3/uL (0.0-0.7); EOS % 1 % (0-3); HEMATOCRIT 29.2 % (36.0-47.0); HEMOGLOBIN 9.8 g/dL (12.0-15.5); LYMPH # 4.8 x10^3/uL (1.0-4.8); LYMPH % 23 % (24-48); MEAN CORPUSCULAR HEMOGLOBIN 30 pg (25-35); MEAN CORPUSCULAR HGB CONC 33 g/dL (31-37); MEAN CORPUSCULAR VOLUME 90 fL (79-100); MONO % 5 % (0-9); NEUT # 15.2 x10^3/uL (1.8-7.7); NEUT % 71 % (31-73); PLATELET COUNT 272 x10^3/uL (140-400); RED BLOOD COUNT 3.26 x10^6/uL (3.50-5.40); RED CELL DISTRIBUTION WIDTH 13.7 % (11.5-14.5); WHITE BLOOD COUNT 21.2 x10^3/uL (4.0-11.0)
[2020-10-14 09:34] LABS: CALCIUM 8.4 mg/dL (8.5-10.1); CREATININE 0.9 mg/dL (0.6-1.0); GFR 82.3; MAGNESIUM 1.9 mg/dL (1.8-2.4); POTASSIUM 3.2 mmol/L (3.5-5.1)
[2020-10-14 11:00] VITALS: BP 98/68
--- NOTE | 2020-10-14 11:52 | PDOC ---
[employer] PROGRESS NOTE Date of Service DOS: DATE: 10/14/20 TIME: 11:49 Chief Complaint Chief Complaint Acute respiratory failure with hypoxia COVID-19 pneumonia, was not vaccinated chronic Autoimmune hepatitis, takes cellcelpt Migraines obese, BMI 32 History of Present Illness History of Present Illness WalkerPatient is a 45-year-old female transferred from [facility] overnight due to COVID-19 pneumonia. She presented to the outside hospital September 27 complaining of 2-day history of shortness of breath that was worsening. Per report from them she was diagnosed with Covid on September 24. Patient reported she was also having some nausea and decreased p.o. tolerance. On arrival to [facility] she was noted to have sinus tach and hypoxia requiring 6 L nasal cannula to bring her saturations into the 90s. She was started on steroids and Levaquin. At that point due to failure increasing respiratory status [facility] for transfer to the ICU here. This was delayed due to bed availability but patient eventually arrived here September 29. 10/11: Patient seen and examined. has incontinence of urine, Discussed with RN. Chart reviewed. Patient was in mild distress on examination. She endorsed having trouble breathing with 6L O2 per nasal cannula; pulse ox was 95. Plan to put patient on oxygen mask. Patient endorses 6/10 pain everywhere. Nurse reports her IVs have failed, She had refused blood draws \\\ 10/12, more calm, but still requiring a lot of oxygen and support very weak, was urinary incontinent, eating Ok no new commpliant 10/13/2020 No acute events overnight. Patient saturating 96% on 7 L nasal cannula. Potassium low at 2.8. Will replace with p.o. and IV replacement. Patient's chart, labs, images were reviewed and discussed with RN 10/14/2020 No acute events overnight. Patient saturating 98% on 7 L nasal cannula. Patient feels improvement in dyspnea but continues to be weak for ambulation with physical therapy. Will attempt to decrease O2 requirement. Patient due to multiple morbidities may require rehab upon discharge. Potassium of 3.2 today will replace with IV and p.o. electrolyte replacement. Patient's chart, labs, images were reviewed and discussed with RN Vitals/I&O Vitals/I&O: Vital Signs Date Time Temp Pulse Resp B/P (MAP) Pulse Ox O2 Delivery O2 Flow Rate FiO2 10/14/20 09:47 18 10/14/20 09:17 Nasal Cannula 7.0 10/14/20 07:00 98.9 113 132/93 (106) 98 98.9 I & O 10/13/20 10/13/20 10/14/20 15:00 23:00 07:00 Intake Total 900 ml 1350 ml 400 ml Output Total 1000 ml 900 ml Balance -100 ml 1350 ml -500 ml Physical Exam General: Alert, Oriented X3, Cooperative, mild distress (Patient endorses trouble breathing) Heart: Regular rate, Normal S1, Normal S2 Lungs: Clear Abdomen: Normal bowel sounds, Soft Extremities: No clubbing, No cyanosis, No edema, Normal pulses Skin: No breakdown, No significant lesion Labs Labs: Laboratory Tests Test 10/14/20 09:05 White Blood Count 21.2 x10^3/uL (4.0-11.0) Red Blood Count 3.26 x10^6/uL (3.50-5.40) Hemoglobin 9.8 g/dL (12.0-15.5) Hematocrit 29.2 % (36.0-47.0) Mean Corpuscular Volume 90 fL (79-100) Mean Corpuscular Hemoglobin 30 pg (25-35) Mean Corpuscular Hemoglobin Concent 33 g/dL (31-37) Red Cell Distribution Width 13.7 % (11.5-14.5) Platelet Count 272 x10^3/uL (140-400) Neutrophils (%) (Auto) 71 % (31-73) Lymphocytes (%) (Auto) 23 % (24-48) Monocytes (%) (Auto) 5 % (0-9) Eosinophils (%) (Auto) 1 % (0-3) Basophils (%) (Auto) 1 % (0-3) Neutrophils # (Auto) 15.2 x10^3/uL (1.8-7.7) Lymphocytes # (Auto) 4.8 x10^3/uL (1.0-4.8) Monocytes # (Auto) 1.0 x10^3/uL (0.0-1.1) Eosinophils # (Auto) 0.1 x10^3/uL (0.0-0.7) Basophils # (Auto) 0.2 x10^3/uL (0.0-0.2) Sodium Level 143 mmol/L (136-145) Potassium Level 3.2 mmol/L (3.5-5.1) Chloride Level 109 mmol/L (98-107) Carbon Dioxide Level 23 mmol/L (21-32) Anion Gap 11 (6-14) Blood Urea Nitrogen 20 mg/dL (7-20) Creatinine 0.9 mg/dL (0.6-1.0) Estimated GFR (Cockcroft-Gault) 82.3 Glucose Level 123 mg/dL (70-99) Calcium Level 8.4 mg/dL (8.5-10.1) Magnesium Level 1.9 mg/dL (1.8-2.4) C-Reactive Protein, Quantitative 23.3 mg/L (0-3.3) Comment Review of Relevant I have reviewed the following items poli (where applicable) has been applied. Justifications for Admission Other Justification JEANNE SUTTON MD Oct 14, 2020 11:51
[2020-10-14] MEDS: ENOXAPARIN 40 MG/0.4 ML SYRINGE. SQ SCH (13:24)
[2020-10-14] MEDS: POLYETHYLENE GLYCOL 3350 17 GM PACKET. PO SCH ×3 (13:46→19:42)
--- NOTE | 2020-10-14 14:30 | NUR ---
SS following up with discharge planning. SS reviewed pt chart and discussed with pt RN. Pt is currently requiring oxygen at seven liters nasal canula. COVID19 recovered. PT/OT ordered. PT recommended acute rehabilitation. SS met with pt to discuss discharge planning and acute rehabilitation. Pt agreeable to acute rehabilitation and requested referral to [facility], ; fax [phone]. SS phoned and faxed referral as requested. SS will continue to follow for discharge planning. Addendum: 10/14/20 at 1613 by CHEYENNE URBAN SS Pt now requesting to return to home at discharge. Six minute walk to be ordered in the morning.
[2020-10-14 15:00] VITALS: BP 133/96
[2020-10-14 19:00] VITALS: BP 140/84
[2020-10-14] MEDS: BENZONATATE 100 MG CAPSULE. PO PRN (19:40)
[2020-10-14] MEDS: OLANZapine 5 MG TABLET PO SCH (19:40)
[2020-10-14] MEDS: PROGESTERONE, MICRONIZED 100 MG CAPSULE PO SCH (19:41)
[2020-10-14 22:32] VITALS: BP 115/78
[2020-10-15] MEDS: HYDROcodone/APAP 5/325MG 1 TAB TABLET PO PRN ×2 (02:15→07:46)
[2020-10-15 02:42] VITALS: BP 130/75
[2020-10-15] MEDS: LEVOTHYROXINE 50 MCG TABLET PO SCH (06:16)
[2020-10-15] MEDS: POLYETHYLENE GLYCOL 3350 17 GM PACKET. PO SCH ×2 (06:16→11:47)
[2020-10-15 07:00] VITALS: BP 138/105
[2020-10-15] MEDS: OXYMETAZOLINE 0.05% NASAL SPRAY 30ML BOTTLE. NS SCH (07:30)
[2020-10-15] MEDS: URSODIOL 300 MG CAPSULE. PO SCH ×2 (07:34→11:47)
[2020-10-15] MEDS: FAMOTIDINE 20 MG TABLET. PO SCH (07:34)
[2020-10-15] MEDS: COLESTIPOL HCL 1 GM TABLET PO SCH (07:34)
[2020-10-15] MEDS: MULTIVITAMIN with MINERAL TABLET. PO SCH (07:34)
[2020-10-15] MEDS: DEXAMETHASONE 4 MG TABLET PO SCH (07:34)
[2020-10-15] MEDS: FUROSEMIDE 20 MG TABLET PO SCH (07:35)
[2020-10-15] MEDS: CYCLOBENZAPRINE 10 MG TABLET. PO SCH (07:35)
[2020-10-15] MEDS: POTASSIUM CHLORIDE 20 MEQ TABLET.ER. PO SCH (07:35)
[2020-10-15] MEDS: CITALOPRAM 20 MG TABLET. PO SCH (07:35)
[2020-10-15] MEDS: ASPIRIN ENTERIC COATED 81 MG TABLET.DR. PO SCH (07:35)
[2020-10-15] MEDS: BENZONATATE 100 MG CAPSULE. PO PRN (07:46)
--- NOTE | 2020-10-15 09:38 | PDOC ---
PULMONARY PROGRESS NOTES DATE: 10/15/20 TIME: 09:38 Subjective Not more short of air patient feels better, less anxious today. Decrease O2 requirement Vitals Vital Signs Date Time Temp Pulse Resp B/P (MAP) Pulse Ox O2 Delivery O2 Flow Rate FiO2 10/15/20 08:16 20 Nasal Cannula 5.0 10/15/20 07:00 98.7 117 138/105 (116) 92 98.7 ROS: No Nausea, No Chest Pain, No Abdominal Pain, No Increase Cough General: Alert Lungs: Clear Cardiovascular: S1, S2 Abdomen: Soft Neuro Exam: Alert Extremities: No Edema Skin: Warm Labs Laboratory Tests Test 10/14/20 09:05 White Blood Count 21.2 x10^3/uL (4.0-11.0) Red Blood Count 3.26 x10^6/uL (3.50-5.40) Hemoglobin 9.8 g/dL (12.0-15.5) Hematocrit 29.2 % (36.0-47.0) Mean Corpuscular Volume 90 fL (79-100) Mean Corpuscular Hemoglobin 30 pg (25-35) Mean Corpuscular Hemoglobin Concent 33 g/dL (31-37) Red Cell Distribution Width 13.7 % (11.5-14.5) Platelet Count 272 x10^3/uL (140-400) Neutrophils (%) (Auto) 71 % (31-73) Lymphocytes (%) (Auto) 23 % (24-48) Monocytes (%) (Auto) 5 % (0-9) Eosinophils (%) (Auto) 1 % (0-3) Basophils (%) (Auto) 1 % (0-3) Neutrophils # (Auto) 15.2 x10^3/uL (1.8-7.7) Lymphocytes # (Auto) 4.8 x10^3/uL (1.0-4.8) Monocytes # (Auto) 1.0 x10^3/uL (0.0-1.1) Eosinophils # (Auto) 0.1 x10^3/uL (0.0-0.7) Basophils # (Auto) 0.2 x10^3/uL (0.0-0.2) Sodium Level 143 mmol/L (136-145) Potassium Level 3.2 mmol/L (3.5-5.1) Chloride Level 109 mmol/L (98-107) Carbon Dioxide Level 23 mmol/L (21-32) Anion Gap 11 (6-14) Blood Urea Nitrogen 20 mg/dL (7-20) Creatinine 0.9 mg/dL (0.6-1.0) Estimated GFR (Cockcroft-Gault) 82.3 Glucose Level 123 mg/dL (70-99) Calcium Level 8.4 mg/dL (8.5-10.1) Magnesium Level 1.9 mg/dL (1.8-2.4) C-Reactive Protein, Quantitative 23.3 mg/L (0-3.3) Medications Active Scripts Medications Dose Route/Sig Max Daily Dose Days Date Category Cimetidine 200 Mg Tablet 1 Tab PO BID 09/30/20 Reported Femring (Estradiol Acetate) 1 Each Vag.ring 1 Ring VAG [id number] 09/30/20 Reported Naproxen 500 Mg Tablet 1 Tab PO BID 09/30/20 Reported Famotidine 40 Mg Tablet 1 Tab PO DAILY 09/30/20 Reported Sucralfate 1 Gm Tablet 1 Tab PO QID 09/30/20 Reported Progesterone (Progesterone,Micronized) 200 Mg Capsule 1 Cap PO QHS 09/30/20 Reported Ondansetron Odt (Ondansetron) 8 Mg Tab.rapdis 1 Tab PO PRN TID PRN 09/30/20 Reported Prochlorperazine Maleate 10 Mg Tablet 10 Mg PO PRN Q8HRS PRN 09/30/20 Reported Vitamin D2 (Ergocalciferol (Vitamin D2)) 1,250 Mcg Capsule 1 Cap PO TWICE WEEKLY 09/30/20 Reported Mycophenolate Mofetil 500 Mg Tablet 500 Mg PO BID 09/30/20 Reported Colestipol Hcl 1 Gm Tablet 1 Gm PO BID 09/13/19 Reported Escitalopram Oxalate 10 Mg Tablet 10 Mg PO DAILY 09/13/19 Reported Olanzapine 15 Mg Tablet 15 Mg PO QHS 09/13/19 Reported Promethazine Hcl 25 Mg Tablet 25 Mg PO PRN Q8HRS PRN 09/13/19 Reported Voltaren (Diclofenac Sodium) 100 Gm Gel..gram. 100 Gm TP DAILY 09/13/19 Reported Cyclobenzaprine Hcl 10 Mg Tablet 10 Mg PO TID 09/13/19 Reported Furosemide 20 Mg Tablet 20 Mg PO DAILY 09/13/19 Reported Prednisone 5 Mg Tablet 5 Mg PO DAILY 09/13/19 Reported Diphenhydramine Hcl 50 Mg Capsule 50 Mg PO PRN Q6HRS PRN 08/15/17 Reported Benzonatate 100 Mg Capsule 1 Cap PO PRN TID PRN 08/15/17 Reported Ursodiol 300 Mg Capsule 300 Mg PO QID 07/18/14 Reported Levothyroxine Sodium 50 Mcg Tablet 1 Tab PO DAILY 07/18/14 Reported Impression . 1. Acute hypoxic respiratory failure secondary to COVID-19 viral pneumonia, acute lung injury and early acute respiratory distress syndrome. 2. COVID-19 viral pneumonia in the patient who is not vaccinated and immunosuppressed. She is on CellCept and prednisone at home. 3. Abnormal liver function test, could be related to COVID. Not a candidate for tocilizumab. 4. Moderate protein-calorie malnutrition. 5. Nonsmoker. 6. Nonspecific anxiety Chest x-ray reviewed from 10/09, compatible with Covid Plan . 6-minute walk, discharge today Updated 10/14 Spoke with social service, discharge planning in place Continue oxygen supplementation Steroids Up to chair updated 10/13 Continues to improve Continue oxygen Steroids Up to chair PT OT May need LTAC Updated 10/12 Continue current support oxygen Up to chair Steroids Anxiolytics JACK RIVERA MD Oct 15, 2020 09:38
--- NOTE | 2020-10-15 10:24 | NUR ---
SS following up with discharge planning. SS reviewed pt chart and discussed with pt RN. Pt is currently requiring oxygen at five liters nasal canula. COVID19 recovered. Pt requesting to return to home at this time. Pt requesting to return to home today. Six minute walk being ordered to test oxygen needs. SS will continue to follow for discharge planning. Addendum: 10/15/20 at 1203 by [employer] SS Six minute walk completed and pt requiring oxygen two liters at rest and six liters with exertion. Script received and script and referral phoned and faxed to [facility], ; fax [phone]. Oxygen tank provided for home. Discharge order on the chart for home with self care.
[2020-10-15 11:00] VITALS: BP 138/94
[2020-10-15] MEDS ORDERED: AMLO-187 PO (11:26)
[2020-10-15] MEDS ORDERED: ASPI-886 PO (11:26)
[2020-10-15] MEDS ORDERED: PRED20TA PO (11:26)
--- NOTE | 2020-10-15 11:27 | DISCH ---
DISCHARGE INSTRUCTIONS Condition on Discharge Condition on Discharge: Stable Activity After Discharge Activity Instructions for Disc: No restrictions, Activity as tolerated Exercise Instruction after Dis: Walk 15 min, 3 x per day Driving Instructions after Dis: Do not drive today Weight Bearing Status after Di: No restrictions Diet after Discharge Diet after Discharge: Cardiac Follow-Up Follow up with: PCP within 2 weeks of discharge Follow Up With: Pulmonology as needed Treatment/Equipment after DC Adaptive Equipment Issued: None Discharge Respiratory Equipmen: Oxygen (Home oxygen for 2 weeks, then 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
== END 2020-10-15 13:30 | disposition home or self-care (01) | DRG 177 ==
LOC: 6 SOUTH 23:45
PROVIDERS: ADMIT Student in an Organized Health Care Education/Training Program; ATTEND Student in an Organized Health Care Education/Training Program
PROC: XW033E5 Introduction of Remdesivir Anti-infective into Peripheral Vein, Percutaneous Approach, New Technology Group 5 (ICD-10-PCS; principal; 2020-09-30)
PROC: 02HV33Z Insertion of Infusion Device into Superior Vena Cava, Percutaneous Approach (ICD-10-PCS; 2020-10-12)
DX: U07.1 COVID-19 (principal); J12.82 Pneumonia due to coronavirus disease 2019; J80 Acute respiratory distress syndrome; E44.0 Moderate protein-calorie malnutrition; E66.9 Obesity, unspecified; F41.9 Anxiety disorder, unspecified; G43.909 Migraine, unspecified, not intractable, without status migrainosus; R94.5 Abnormal results of liver function studies; K75.4 Autoimmune hepatitis; R32 Unspecified urinary incontinence; Z68.34 Body mass index [BMI] 34.0-34.9, adult
CPT/HCPCS: 36415; 36569; 71045; 80048; 80053; 83735; 85007; 85025; 85027; 86140; 94618; J1650; J2270; J2405; J2543; J3490; J7050; J7060; 97116-GP; 97530-GP; G0378; J7030